=== PATIENT | male | born 1940 | race Caucasian/White ===

== ENCOUNTER → 2017-11-26 09:58 | Outpatient (CLI) | payer MEDICARE, SELFPAY ==
[2017-11-26 12:35] LABS: BUN 22 mg/dL (7-18); Creatinine, Serum 0.95 mg/dL (0.70-1.30); Glucose 137 mg/dL (74-106)
[2017-11-26 12:36] LABS: AST(SGOT) 24 U/L (15-37); Alanine Aminotransfer ALT/SGPT 35 U/L (16-61); Alkaline Phosphatase 55 U/L (45-117); Anion Gap 10 (5-15); BUN/Creat Ratio 23.2 RATIO (10-20); Bilirubin, Direct 0.09 mg/dL (0.00-0.30); Calcium,Total 8.8 mg/dL (8.5-10.1); Chloride 104 mmol/L (98-107); Cholesterol 161 mg/dL (200); EST Glomerular Filtration Rate 82 mL/min (>60); Est Glom Filt Rate - Afr Amer 100 mL/min (>60); Globulin 3.7 g/dL (2.2-4.2); High Density Lipoprotein 30 mg/dL; Potassium 4.1 mmol/L (3.5-5.1); Protein, Total 7.7 g/dL (6.4-8.2); Sodium Level 137 mmol/L (136-145); Triglycerides 254 mg/dL; Very Low Density Lipoprotein 51 mg/dL (5-40)
[2017-11-26 12:43] LABS: Hemoglobin A1c 6.2 % (4.2-6.3)
[2017-11-26 12:49] LABS: Microalbumin,Random Urine 15.5 mg/L (NO RANGE EST.); Microalbumin:Creatinine Ratio 9.1 mg/g CRE (<30 mg/g CRE)
== END ==
PROVIDERS: Family Provider Family Medicine; PCP Family Medicine; Visit Provider Family Medicine
DX: E11.9 Type 2 diabetes mellitus without complications (principal); I10 Essential (primary) hypertension
CPT/HCPCS: 36415; 80048; 80061; 80076; 82043; 82570; 83036

== ENCOUNTER → 2018-11-27 10:18 | Outpatient (CLI) | payer MEDICARE, SELFPAY ==
[2017-11-07 11:41] VITALS: BMI 30.9
[2018-11-27 13:01] LABS: Hemoglobin A1c 6.4 % (4.2-6.3)
[2018-11-27 13:04] LABS: Microalbumin,Random Urine 12.2 mg/L (NO RANGE EST.); Microalbumin:Creatinine Ratio 12.1 mg/g CRE (<30 mg/g CRE)
[2018-11-27 13:14] LABS: AST(SGOT) 24 U/L (15-37); Alanine Aminotransfer ALT/SGPT 32 U/L (16-61); Albumin, Serum 4.1 g/dL (3.2-5.0); Alkaline Phosphatase 46 U/L (45-117); Anion Gap 11 (5-15); BUN 17 mg/dL (7-18); BUN/Creat Ratio 18.7 RATIO (10-20); Bilirubin, Direct 0.17 mg/dL (0.00-0.30); Calcium,Total 8.7 mg/dL (8.5-10.1); Chloride 109 mmol/L (98-107); Cholesterol 153 mg/dL (200); Creatinine, Serum 0.91 mg/dL (0.70-1.30); EST Glomerular Filtration Rate 86 mL/min (>60); Est Glom Filt Rate - Afr Amer 104 mL/min (>60); Globulin 3.4 g/dL (2.2-4.2); Glucose 100 mg/dL (74-106); High Density Lipoprotein 31 mg/dL; Potassium 4.1 mmol/L (3.5-5.1); Protein, Total 7.5 g/dL (6.4-8.2); Sodium Level 142 mmol/L (136-145); Triglycerides 246 mg/dL; Very Low Density Lipoprotein 49 mg/dL (5-40)
== END ==
PROVIDERS: Family Provider Family Medicine; PCP Family Medicine; Visit Provider Family Medicine
DX: E11.9 Type 2 diabetes mellitus without complications (principal)
CPT/HCPCS: 36415; 80048; 80061; 80076; 82043; 82570; 83036

== ENCOUNTER 2019-02-07 14:31 | Emergency (ER) | payer MEDICARE, SELFPAY ==
[2019-02-07 14:32] VITALS: BP 156/83; PULSE 82; RESP 16; TEMP 36.7; O2SAT 95; BMI 30.4
--- NOTE | 2019-02-07 15:06 | CT_ITS ---
STUDY: CT ABDOMEN AND PELVIS WITHOUT CONTRAST REASON FOR EXAM: Male, 78 years old. Left lower quadrant pain RADIATION DOSAGE (If Supplied By Facility): CTDIvol = ( 18.02 ) mGy, DLP = ( 985.79 ) mGycm TECHNIQUE: Transaxial images were obtained from the dome of the diaphragm to the symphysis pubis without oral contrast, and without intravenous contrast. Sagittal and coronal images were reconstructed. Individualized dose optimization techniques were used for this CT. COMPARISON: None. FINDINGS: The visualized lung bases are unremarkable. The visualized portions of the heart are within normal limits. Normal liver. Normal gallbladder and extrahepatic biliary system. Normal spleen. Normal pancreas. Normal bilateral adrenal glands. There is moderate left renal pelvocaliectasis and hydroureter to the level of the bladder without ureteral calculus.. No left renal mass given limited unenhanced nature of the study. Moderate right renal pelvocaliectasis and hydroureter also to the level of the bladder without ureteral calculus. There does appear to be a tiny nonobstructing calculus in the right kidney as well as a large complex cyst demonstrating straightening focal rim calcification. There also appears to be a second complex cyst. Contrast-enhanced study or MRI would be helpful for more definitive evaluation. Normal visualized stomach. Normal small intestine. Minor diverticular changes of the distal descending and sigmoid colon without evidence for acute diverticulitis. No evidence for acute appendicitis Atherosclerotic changes of the aorta without evidence for aneurysm. Normal inferior vena cava. Normal retroperitoneum. The bladder is diffusely distended in association with markedly enlarged prostate impinging upon the base of the bladder. Bilateral fat-containing inguinal hernias larger on the left. The lumbar spine demonstrates moderate spondylosis CT/Abdomen/Pelvis without Cont IMPRESSION: Moderate bilateral hydroureteronephrosis likely due to bladder outlet obstruction in association with markedly distended bladder secondary to enlarged prostate. Tiny nonobstructing right renal calculus and large complex cortical cyst demonstrating focal rim calcification and second complex cyst which may be better assessed with contrast-enhanced study or MRI. Electronically Signed: Lorne Salazar MD at 16:41 EDT , Service support ,
--- NOTE | 2019-02-07 15:07 | ED.VIS.GEN ---
History of Present Illness Chief Complaint: Abd Pain Informant: Patient Onset: Today Timing: Intermittent - over past week, mild Quality: ache Location: LLQ Current Severity: Mild Maximum Severity: Severe Worsened by: nothing Relieved by: just after urinating Associated Symptoms: nausea this AM Narrative: Patient sent by PCP after being evaluated this morning, for CT abdomen/pelvis for further evaluation of this relatively quick onset severe left lower quadrant pain without radiation. He states he has been having discomfort just left of suprapubic off and on for the past week but it has been very mild. Today this pain is much more severe. He has noticed urinary frequency and nocturia for the past week without hematuria, dysuria. He has never had any of this before. Denies any syncopal or near syncopal episodes, no chest discomfort or shortness of breath. No radiation into his back or his scrotum. No numbness in the lower extremities. - Past Medical History (1) HTN (hypertension) Status: Chronic (2) Type 2 diabetes mellitus Status: Chronic Past Medical History - Allergies and Home Meds Allergies/Adverse Reactions: Allergies pneumococcal vaccine [From Pneumovax 23] Allergy (Verified 02/07/19 14:35) SWELLING AND REDNESS Primary Care Physician: Indira Tidwell MD [Primary Care Provider] - Lives: Spouse/ Significant Other Smoking Status: Former smoker Drugs: None Review of Systems General: Denies: Chills, Fever, Sweats Eyes: Denies: Visual changes - bilaterally, Diplopia ENT: Denies: Rhinorrhea, Sore throat Cardiovascular: Denies: Chest pain, Palpitations Respiratory: Denies: Dyspnea, Cough, Dyspnea on exertion Gastrointestinal: Reports: Abdominal pain, Nausea. Denies: Vomiting, Diarrhea, Melena, Hematochezia Genitourinary: Reports: Frequency, - - urgency. Denies: Dysuria, Hematuria Musculoskeletal: Reports: Myalgias - achy from working, cutting and lifting wood -- better, Back pain - achy from working, cutting and lifting wood -- better. Denies: Neck pain, Swelling Skin: Denies: Rash, Wounds Neurological: Denies: Headache, Weakness, Numbness Allergy: Denies: Swelling of the mouth, Swelling of the tongue Physical Exam Vital Signs/Narrative: Vital Signs Temp Pulse Resp BP Pulse Ox 02/07/19 14:32 98.0 F 82 16 156/83 H 95 Inital Vital Signs reviewed: Yes General: Well nourished, Well developed, No Acute Distress Head: Normocephalic, Atraumatic Eyes: Perrl, EOMI ENT: Moist mucous membranes, No rhinorrhea Neck: Supple, Nontender Cardiovascular: Regular rate, Regular rhythm, No murmurs. Negative for: Tachycardia Respiratory: No distress, CTA bilaterally, Chest nontender Abdomen: Soft, Nontender, Nondistended, Normal bowel sounds. Negative for: Pulsatile mass Back: Nontender, Normal Inspection - no rash. Negative for: CVA tenderness Extremities: Nontender, No edema Skin: Normal color, No rash, No Trauma Neurological: Alert, Oriented x3, Cranial nerves II-XII grossly intact, Normal Strength, Normal Sensation Psychological: Normal affect, Normal Mood Diagnostic/Tx/Re-eval Impressions Abdomen/Pelvis CT 02/07/19 15:06 IMPRESSION: Moderate bilateral hydroureteronephrosis likely due to bladder outlet obstruction in association with markedly distended bladder secondary to enlarged prostate. Tiny nonobstructing right renal calculus and large complex cortical cyst demonstrating focal rim calcification and second complex cyst which may be better assessed with contrast-enhanced study or MRI. Electronically Signed: Lorne Salazar MD at 16:41 EDT , Service support , 02/07/19 15:06 Abdomen/Pelvis without Cont [CT] Stat Laboratory Results 02/07/19 02/07/19 15:13 15:13 WBC 4.8 RBC 3.60 L Hgb 10.8 L Hct 33.5 L MCV 93.1 MCH 30.0 MCHC 32.2 RDW 13.3 RDW Differential 45.5 H Plt Count 179 MPV 9.6 Immature Gran % (Auto) 0.200 Neut % (Auto) 78.0 H Lymph % (Auto) 16.2 L [place] % (Auto) 5.4 Eos % (Auto) 0.2 Baso % (Auto) 0.0 Absolute Neuts (auto) 3.8 Absolute Lymphs (auto) 0.78 L Total Counted Not Reportable Sodium 143 Potassium 4.3 Chloride 111 H Carbon Dioxide 24.0 Anion Gap 8 BUN 32 H Creatinine 1.65 H Estim Creat Clear Calc 41.80 Est GFR (MDRD) Af Amer 52 L Est GFR (MDRD) Non-Af 43 L BUN/Creatinine Ratio 19.4 Glucose 120 H Calcium 8.7 - Medical Decision Making Saucedo catheter was placed, which yielded almost 2000 cc, his trunkal pain is much better. He developed hematuria after a liter was out. With observation this cleared, it is now pink without clots. I think he is stable to be discharged home with a leg bag. Discussed with PCP and Dr. germain who recommends follow-up 7-10 days along with daily Flomax 0.4 mg tablets. Patient is comfortable with this plan. All questions answered at the bedside. ED Disposition - Plan for ED Patient: Disposition: Home or Assisted Living Diagnosis: JUDY (acute kidney injury), Enlarged prostate with urinary retention Instructions: ED Retention Urinary Male, ED Catheter Care Saucedo, ED Prostate Enlarged Prescriptions: Tamsulosin HCl [Flomax] 0.4 mg PO DAILY #30 cap Referrals: Richard Fields MD [STAFF PHYSICIAN] - (7-10 days -- call for appt)
[2019-02-07 15:20] LABS: Absolute Lymphocyte Count 0.78 X10^3/ul (0.83-4.51); Absolute Neutrophil Count 3.8 X10^3/uL (2.0-7.7); Eosinophil# 0.01 X10^3/uL; Eosinophils% 0.2 % (0-5); Hematocrit 33.5 % (40-54); Hemoglobin 10.8 g/dl (13.0-16.5); Lymphocyte # 0.78 X10^3/ul (4.0); Lymphocyte % 16.2 % (19-41); Mean Corp Hgb Conc 32.2 g/gl (32-36); Mean Corpuscular Volume 93.1 fL (80-94); Mean Platelet Vol. 9.6 fl (6.2-12.0); Monocyte# 0.26 X10^3/uL; Monocyte% 5.4 % (0-10); Neutrophil # 3.75 X10^3/uL (2.7-7.7); Platelet Count 179 K/mm3 (150-450); RBC Distribution Width CV 13.3 % (11.6-14.6); RBC Distribution Width SD 45.5 fl (35.1-43.9); White Blood Count 4.8 K/mm3 (4.4-11.0)
[2019-02-07 15:24] LABS: POSITIVE COUNT NO; POSITIVE DIFFERENTIAL NO; POSITIVE MORPHOLOGY NO
[2019-02-07 15:34] LABS: Anion Gap 8 (5-15); BUN 32 mg/dL (7-18); BUN/Creat Ratio 19.4 RATIO (10-20); Calcium,Total 8.7 mg/dL (8.5-10.1); Chloride 111 mmol/L (98-107); Creatinine, Serum 1.65 mg/dL (0.70-1.30); EST Glomerular Filtration Rate 43 mL/min (>60); Est Glom Filt Rate - Afr Amer 52 mL/min (>60); Glucose 120 mg/dL (74-106); Potassium 4.3 mmol/L (3.5-5.1); Sodium Level 143 mmol/L (136-145)
[2019-02-07 17:36] VITALS: BP 156/79; PULSE 87; RESP 16; O2SAT 99
[2019-02-07] MEDS: Lidocaine Jelly 2% 20 ML Syringe (URO-JET) 20 APPLIC TOPICAL (17:37)
[2019-02-07 19:12] VITALS: BP 158/87; PULSE 78; RESP 16; O2SAT 100
== END 2019-02-07 19:12 | disposition home or self-care (01) ==
PROVIDERS: Emergency Provider Emergency Medicine; Family Provider Family Medicine; PCP Family Medicine
DX: N17.9 Acute kidney failure, unspecified (principal); N40.1 Benign prostatic hyperplasia with lower urinary tract symptoms; R33.8 Other retention of urine; N13.8 Other obstructive and reflux uropathy; Z87.891 Personal history of nicotine dependence; I10 Essential (primary) hypertension; E11.9 Type 2 diabetes mellitus without complications
CPT/HCPCS: 51702; 74176; 80048; 85025; 99284; A4216

== ENCOUNTER → 2019-02-17 10:16 | Outpatient (CLI) | payer MEDICARE, SELFPAY ==
[2019-02-14 10:17] VITALS: BMI 29.3
--- NOTE | 2019-02-17 10:33 | CT_ITS ---
STUDY: CT ABDOMEN WITH CONTRAST REASON FOR EXAM: Male, 78 years old. Follow-up abnormal CT 02/07. Possible right renal mass RADIATION DOSAGE (If Supplied By Facility): CTDIvol = ( 22.67 ) mGy, DLP = ( 1196.94 ) mGycm TECHNIQUE: Transaxial images were obtained post I.V. administration of 75mL IV Isovue 300, and without oral contrast. Sagittal and coronal images were reconstructed. Individualized dose optimization techniques were used for this CT. COMPARISON: 02/07/2019 FINDINGS: The visualized lung bases are unremarkable. The visualized portions of the heart are within normal limits. Normal liver. The gallbladder is contracted. Normal spleen. Normal pancreas. Normal bilateral adrenal glands. Markedly irregular appearance of the right kidney with enhancing lobulated mass with some internal calcifications. The actual masses are to identify given its appearance however, gross measurements measuring 7.4 cm AP by 4.7 cm wide. On precontrast imaging, this measured 24 HU with postcontrast imaging measuring 50. There is a hypodense exophytic mid pole renal cystic lesion as well measuring 4.6 x 3.1 cm. Unremarkable left kidney absent of small subcentimeter hypodensities, likely small cysts. Somewhat ill-defined appearance of the right renal vein suggesting possible involvement Unremarkable stomach and visualized small and large bowel. No evidence of significant lymphadenopathy around the right kidney. Normal abdominal aorta. Normal inferior vena cava. Normal retroperitoneum. Normal abdominal wall. Normal osseous structures. CT/Abdomen WITH IV Contrast IMPRESSION: Multilobulated enhancing mass involving the right kidney which is highly suspicious for renal cell carcinoma. Additional cystic lesion involving the right kidney. Questionable involvement of the right renal vein with abnormality. Surgical consultation is recommended if not already performed Electronically Signed: All Holt DO at 11:19 EDT Tel , Service support ,
== END ==
PROVIDERS: Family Provider Family Medicine; PCP Family Medicine; Referring Provider Nurse Practitioner Adult Health; Visit Provider Nurse Practitioner Adult Health
DX: R10.84 Generalized abdominal pain (principal)
CPT/HCPCS: 74160; Q9967

== ENCOUNTER 2019-02-21 16:22 | Inpatient (IN) | payer MEDICARE, SELFPAY ==
[2019-02-14 10:17] VITALS: BP 138/67; PULSE 81; RESP 16; TEMP 36.3; O2SAT 99; BMI 29.3
--- NOTE | 2019-02-14 10:25 | SDCEKG_ITS ---
Test Reason : Blood Pressure : / mmHG Vent. Rate : 077 BPM Atrial Rate : 077 BPM P-R Int : 150 ms QRS Dur : 092 ms QT Int : 366 ms P-R-T Axes : 054 025 052 degrees QTc Int : 414 ms Normal sinus rhythm Normal ECG Confirmed by ASHLEY ROACH, NAKIA ([id number]), managing editor RAÚL ESCOBAR ([id number]) on 02/25/2019 9:15:19 AM Referred By: Richard Fields Confirmed By:NAKIA RAMIREZ MD
[2019-02-21] VITALS (12 sets, daily range): BP systolic 93–120; BP diastolic 51–71; PULSE 53–92; RESP 14–18; TEMP 36.1–36.9; O2SAT 95–99; BMI 29.3; BMI 29.2
--- NOTE | 2019-02-21 | IMM_PTH ---
PATIENT: YUKI HERNANDEZ LOC: MS3 U#:[id number] AGE/SX: 78/M ROOM: UT316 RE02/21/[address]: Dr. Richard Fields MD : 1940 BED: 1 DIS: 02/24/2019 SPEC #: [id number] RECD: 02/25/19 11:12 STATUS: LEXIS REQ #: [id number] ZARA: 02/21/19 00:[address]: Richard Fields DEPT: IMMUNOHISTOCHEMISTRY RECD BY: Shikha Roper ENTERED: 02/25/19 11:13 SP TYPE: IMMUNO OTHR DR: Dr. Indira Tidwell MD Tissues: Prostate, NOS Procedures: P40 (add) 34BE12 (initial) PHYSICIAN & INSTITUTION [place] [address] SPECIMEN INFORMATION: Tissue Source: Prostate Clinical Info: Urine retention, BPH, lower urinary tract symptoms Specimen Number: [id number] #7 CPT code: 58525, 96568 METHODOLOGY: Deparaffinized sections of prefer/formalin-fixed tissue or PAP/DQ stained slides are incubated with monoclonal/polyclonal antibodies/oligonucleotide probes. Localization is made via biotin free immunoperoxidase method. Appropriate controls are performed and reacted as expected. Results on target cell population are indicated in the following table: RESULTS: ANTIBODY / CLONE RESULT P40 (BC28) negative 34BE12 (34BE12) negative These tests were developed and their performance characteristics determined by [facility]. They may not have been cleared or approved by the U.S. Food and Drug Administration. The FDA has determined that such clearance or approval is not necessary. INTERPRETATION: Prostate, simple prostatectomy: Adenocarcinoma. CAPRI:faustino 02/25/19
[2019-02-21 12:01] LABS: Bedside Glucose 124 mg/dL (70-110)
--- NOTE | 2019-02-21 13:00 | PROST_PTH ---
PATIENT: YUKI HERNANDEZ LOC: MS3 U#:[id number] AGE/SX: 78/M ROOM: SD316 RE02/21/[address]: Dr. Richard Fields MD : 1940 BED: 1 DIS: 02/24/2019 SPEC #: [id number] RECD: 02/24/19 09:18 STATUS: LEXIS REFilomena #: [id number] ZARA: 02/21/19 13:[address]: Richard Fields DEPT: SURGICAL PATHOLOGY RECD BY: Rhys Leonard ENTERED: 02/24/19 10:01 SP TYPE: PROSTATE OTHR DR: Dr. 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 See cancer summary below. SJ:faustino 02/25/19 PROSTATE CANCER SUMMARY: Procedure - enucleation, multiple pieces (simple prostatectomy) Prostate size - 10 x 9 x 4 cm Prostate weight - 84 gm Histologic type - adenocarcinoma (acinar, not otherwise specified) Histologic grade (Eddie Pattern): Primary (predominant) pattern - 3 Secondary (worst remaining) pattern - 3 Total [place] score - 6 Tumor Quantitation (enucleation specimen): Proportion (%) of prostate tissue involved by tumor - <5% Tumor size - 0.5 x 0.2 cm (measured microscopically) Periprostatic fat invasion - not applicable Seminal vesicle invasion - not applicable Lymph-Vascular invasion - not identified Perineural invasion - not identified Additional pathologic findings - benign prostatic hyperplasia, glandular and stromal type. - Chronic inflammation. The above summary is in compliance with [employer] [place] (CAP) Cancer Protocols Checklist and [place] Joint Committee on Cancer (AJCC), Staging Manual, 8th Ed. COMMENT Immunohistochemistry ([id number]) supports the above diagnosis. Case has been reviewed in consultation with Dr. Tillman who concurs with the above diagnosis. IDC:AM MICROSCOPIC DESCRIPTION Slides are reviewed. GROSS DESCRIPTION Received in fixative is one container labeled with the patient's name and designated prostate. The specimen consists of a simple prostatectomy specimen in multiple pieces weighing in aggregate 84 gm and measures in aggregate 10 x 9 x 4 cm. The largest piece measures 5 cm in greatest dimension. Sections do not reveal any obvious mass lesion. [employer]acker sections are submitted in ten cassettes. Cassettes 1-4 contain the largest piece. / CAPRI:faustino 02/24/19 TC:0 CPT: 25592
--- NOTE | 2019-02-21 16:05 | PCM.HP.BLA ---
History and Physical Date of Admission: 02/21/19 I have urinary retention. HPI: YUKI HERNANDEZ is a 78 year-old male patient who was referred by LA[facility] MEJIA M.D. who is here for urinary retention. 78 yo male presents with urinary retention, referred from ER. He states he is here for the severe RLQ pain, it was dull before but sharp last night. He had similar pain left side last week. CT showed bilateral hydroureteronephrosis A couple days before he presented to Dr Baeza for left sided pain he had nocturia with small voids. Usually up max once a night. His problem was diagnosed 3 days ago. His current symptoms did not begin after he had a surgical procedure. His urinary retention is being treated with campbell catheter and flomax. Patient denies suprapubic tube, intemittent catheterization, hytrin, cardura, uroxatrol, rapaflo, avodart, and proscar. ALLERGIES: None Notes: allergic reaction to pneumovax booster. - extremity swelling MEDICATIONS: Amlodipine Besilate Glimepiride Lisinopril Metformin Er Gastric Tamsulosin Hcl 0.4 mg capsule PSH: None NON- PSH: Colonoscopy Pneumococcal Vaccine Admin Tonsillectomy PMH: Frequency of micturition Generalized abdominal pain Other retention of urine NON- PMH: Essential (primary) hypertension Type 2 diabetes mellitus without complications Unspecified hearing loss, unspecified ear Unspecified osteoarthritis, unspecified site FAMILY HISTORY: Colon Cancer - Runs in Family SOCIAL HISTORY: Marital Status: Preferred Language: Yoruba; Ethnicity: Not Or ; Race: White Current Smoking Status: Patient does not smoke anymore. Has not smoked since 01/14/1984. Tobacco Use Assessment Completed: Used Tobacco in last 30 days? Does not use smokeless tobacco. Light Drinker. Does not use drugs. Drinks 4+ caffeinated drinks per day. Has not had a blood transfusion. REVIEW OF SYSTEMS: Constitutional: Patient denies fever, chills, weight loss, and weight gain. Eyes: Patient denies blurry vision, cataracts, and vision problems. Ears, Nose, Mouth, Throat: Patient denies hearing loss, sinus infections, nasal stuffiness, and sleep apnea. Cardiovascular: Patient denies chest pains, swollen ankles, irregular heartbeat, and pacemaker/defibrillator. Respiratory: Patient denies cpap at night., copd, wheezing, use oxygen, and shortness of breath. Gastrointestinal: R side flank pain. Patient reports abdominal pain. Patient denies nausea/vomiting and change in bowels. Genitourinary: Patient reports get up at night to void. Patient denies frequent urination, urinary retention, leakage of urine, blood in urine, frequent urinary tract infections, history of stones, difficulty starting stream, weak stream, and bedwetting. Musculoskeletal: Patient reports back pain. Patient denies sore muscles, gout, and arthritis. Integumentary/Skin: Patient denies rash, persistent itching, and skin cancer history. Neurological: Patient denies numbness, dizziness, stroke/tia, and history of falling/unsteadiness.. Hematologic/Lymphatic: Patient denies swollen glands, abnormal bleeding, transfusion history, and blood clots/dvt/pulmonary embolism. VITAL SIGNS: 02/10/2019 10:32 AM Weight 220 lb / 99.79 kg Height 72 in / 182.88 cm BP 142/78 mmHg BMI 29.8 kg/m? PHYSICAL EXAMINATION: Anus and Perineum: No hemorrhoids. No anal stenosis. No rectal fissure, no anal fissure. No edema, no dimple, no perineal tenderness, no anal tenderness. Scrotum: No lesions. No edema. No cysts. No warts. Epididymides: Right: right head contains a cyst. Right: No spermatocele, no masses, no tenderness, no induration, no enlargement. Left: No spermatocele, no masses, no cysts, no tenderness, no induration, no enlargement. Testes: No tenderness, no swelling, no enlargement left testes. No tenderness, no swelling, no enlargement right testes. Normal location left testes. Normal location right testes. No mass, no cyst, no varicocele, no hydrocele left testes. No mass, no cyst, no varicocele, no hydrocele right testes. Urethral Meatus: Normal size. No lesion, no wart, no discharge, no polyp. Normal location. Penis: Penis uncircumcised. No foreskin warts, no cracks. No dorsal peyronie's plaques, no left corporal peyronie's plaques, no right corporal peyronie's plaques, no scarring, no shaft warts. No balanitis, no meatal stenosis. Prostate: very large, no nodules. Seminal Vesicles: Nonpalpable. Sphincter Tone: Normal sphincter. No rectal tenderness. No rectal mass. MULTI-SYSTEM PHYSICAL EXAMINATION: Constitutional: Well-nourished. No physical deformities. Normally developed. Good grooming. Respiratory: No labored breathing, no use of accessory muscles. Normal breath sounds. Lymphatic: No enlargement of neck, axillae, groin. Skin: No paleness, no jaundice, no cyanosis. No lesion, no ulcer, no rash. Neurologic / Psychiatric: Oriented to time, oriented to place, oriented to person. No depression, no anxiety, no agitation. Gastrointestinal: Abdominal tenderness, mild generalized. No mass, no rigidity, non obese abdomen. Eyes: Normal conjunctivae. Normal eyelids. Musculoskeletal: Normal gait PAST DATA REVIEWED: Source Of History: Patient Records Review: Previous Hospital Records X-Ray Review: C.T. Abdomen/Pelvis: Reviewed Films. Reviewed Report. Discussed With Patient. 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 CT also shows abnormality of right kidney, needs CT with contrast to eval this mass. Dr Fields plans TURP for the very large prostate. Rx for night bag for campbell so he doesn't have to empty it in the night. CARE TEAM: CARINA Martínez-CORWIN Guzman Signed by SABRINA Martínez on 02/10/19 at 3:11 PM (EDT) APPENDED NOTES: In reviewing the CT scan he has a 144gm prostate very large, best option would be a simple prostatectomy will set him up for a robotic simple prostatectomy.
[2019-02-21] MEDS: Cefazolin 2 GM in 0.9% Normal Saline 100 ML IV (16:20)
[2019-02-21] MEDS: Bupivacaine Mpf 0.5% 30 ML VIAL (16:41)
--- NOTE | 2019-02-21 19:29 | OP.PCM_ITS ---
Report of Operation Date of Procedure: 02/21/19 Pre-Operative Diagnosis: BPH with obstruction and urinary retention Post-Operative Diagnosis: Same Surgery/Procedure Performed:: Laparoscopic robotic assisted prostatectomy Description of Surgical Findings:: 78-year-old male who has a very large prostate about 140 g in size he developed a urinary retention of the very large stretch out thickened bladder today working to proceed with a prostatectomy to remove the adenomatous prostate that is blocking the channel. 78-year-old male taken back to the operating room after smooth induction of anesthesia he was placed in dorsolithotomy position the penis and testicles and abdomen was shaved prepped and draped in usual sterile fashion I made an incision in the umbilicus and introduced the Veress needle into the peritoneal cavity filled the peritoneal cavity with CO2 gas placed my camera trocar right arm trocar left arm trocar second left arm trocar geriatric nurse assistant air seal port and suction port. I then docked the robot I first incised the sigmoid colon off the lateral wall allowed to retract out of the way I then we placed the catheter into the bladder I then filled the bladder up to 400 cc of saline, we then incised the bladder in the midline opening up the bladder up in the clamshell fashion, I then used a Hernandez needle to retract the bladder laterally in the right side and the left side, we then went into the bladder identified the left and right ureteral orifices were clearly seen, we then have the catheter and pharmacy deflated the balloon circumferentially dissected around the catheter and dissected down to the adenomatous tissue we then started the dissection of the adenomatous tissue to the right side to the capsule and following the surgical capsule all the way around the prostate worked our way down to the base of the abdomen is tissue I then fractured the abdominal tissue to get it out of the way and then continued dissecting out the adenomatous tissue from the base of the of the prostate finally got all the tissue out resected and then placed in Endo Catch bag after completing the prostatectomy of the adenomatous tissue then we did the anastomosis of the [place] down to the stump this was done with a V lock stitches in a continuous fashion bringing down the edges of the bladder neck to the urethral stump after this was completed then we put a 20 [place] catheter into the bladder I then closed the bladder in a running fashion from the bottom up with 3-0 Vicryl and closed the second layer with 0 Vicryl we then extracted the adenomatous prostatic prostatectomy tissue to the umbilicus to close the umbilicus with with a stitches to close the air seal port with stitches all the trochars were removed under visualization we flush the bladder the bladder urine was clear patient anesthetic is currently being removed reversed blood loss was minimal about 200 cc, all sponges and needles were accounted for, and I went spoke to the family regarding the surgery. Type of Anesthesia:: General Drains: 20 fr campbell. - Admit VTE Documentation VTE Present on Admission: No VTE Mechan Device Prophylaxis: SCD's
[2019-02-21] MEDS: Ketorolac 15 MG/ML Vial IV (19:56)
[2019-02-21 21:26] LABS: Bedside Glucose 146 mg/dL (70-110)
[2019-02-21] MEDS: 0.9% Normal Saline 1,000 ML 150 ML IV (22:10)
[2019-02-21] MEDS: Ciprofloxacin 400 MG/200 ML BAG 200 MG IV (22:45)
[2019-02-21] MEDS: amLODIPine 5 MG Tablet PO (22:51)
[2019-02-21] MEDS: Docusate Sodium 100 MG Capsule PO (22:51)
[2019-02-22] VITALS (8 sets, daily range): BP systolic 96–123; BP diastolic 44–60; PULSE 72–93; RESP 16–18; TEMP 36.8–37.1; O2SAT 92–96
[2019-02-22] MEDS: 0.9% NaCl Peripheral Flush Adult/Peds IV ×4 (00:46→18:21)
[2019-02-22] MEDS: Ketorolac 15 MG/ML Vial IV ×4 (00:46→18:21)
[2019-02-22] MEDS: 0.9% Normal Saline 1,000 ML 150 ML IV ×3 (05:29→18:27)
[2019-02-22 06:35] LABS: Hematocrit 29.3 % (40-54); Hemoglobin 9.5 g/dl (13.0-16.5); Mean Corp Hgb Conc 32.4 g/gl (32-36); Mean Corpuscular Hgb 30.2 pg (27.0-32.0); Mean Platelet Vol. 9.7 fl (6.2-12.0); Platelet Count 129 K/mm3 (150-450); RBC Distribution Width CV 14.1 % (11.6-14.6); RBC Distribution Width SD 47.5 fl (35.1-43.9); Red Blood Count 3.15 M/mm3 (4.6-6.2); Scan Indicated on CBC? Y/N YES- FLAGS NOTED; White Blood Count 11.4 K/mm3 (4.4-11.0)
[2019-02-22 06:59] LABS: Anion Gap 6 (5-15); BUN 15 mg/dL (7-18); BUN/Creat Ratio 15.1 RATIO (10-20); Calcium,Total 7.7 mg/dL (8.5-10.1); Chloride 107 mmol/L (98-107); Creatinine, Serum 0.99 mg/dL (0.70-1.30); EST Glomerular Filtration Rate 78 mL/min (>60); Est Glom Filt Rate - Afr Amer 94 mL/min (>60); Estimated Creatinine Clearance 69.67 ml/min; Glucose 112 mg/dL (74-106); Potassium 4.3 mmol/L (3.5-5.1); Sodium Level 141 mmol/L (136-145)
[2019-02-22 07:06] LABS: Differential Comment SCANNED
--- NOTE | 2019-02-22 08:08 | NURSING ---
Pt lightheaded last evening when stood at edge of bed per report and pt report. This nurse performed orthostatic vitals, see intervention. Pt denies lightheadedness this morning when he was sitting and standing up.
--- NOTE | 2019-02-22 08:43 | PCM.PROGNOTE ---
Subjective: 78-year-old male status post prostatectomy for BPH and obstruction doing well no more bladder spasms currently. Urine is clearing up with less blood. He can ambulate and tolerate regular diet - Physical Exam General: Alert, Oriented x3, Cooperative HEENT: Atraumatic, PERRLA, EOMI, Normocephalic Neck: Supple, No JVD, Negative Carotid Bruits Lungs: Clear to auscultation, Normal air movement Cardiovascular: Regular rate, No murmurs Abdomen: Bowel Sounds Present, Soft, Non Tender Extremities: No edema, Capillary Refill Less than 3 Seconds Skin: No rashes, No breakdown Musculoskeletal: No Tenderness to Palpation of Joints or Extremities Neurological: Cranial nerves II-XII grossly intact Psych/Mental Status: Normal Affect, Appropriate Vital Signs Temp Pulse Resp BP Pulse Ox 98.4 F 87 18 96/52 L 95 02/22/19 07:51 02/22/19 07:52 02/22/19 07:51 02/22/19 07:52 02/22/19 07:51 Oxygen Flow Rate (L/min) 1.5 Oxygen Delivery Method Room Air Weight: 97.749 kg Body Mass Index (BMI) 29.2 Finger Stick Blood Glucose 146 Orthostatic Vital Signs Start: 02/22/19 07:52 Freq: q24h Status: Active Protocol: Activity Type Activity Date Activity User E-Sign Co-Sign Detail Recorded Client Recorded Date Recorded By Document 02/22/19 07:52 [id number] 02/22/19 08:00 TC 02/22/19 07:52 Orthostatic Vitals Standing -Blood Pressure (90/60-120/80) 115/60 -Extremity Use Right Arm -Pulse Rate (60-100) 93 Sitting -Blood Pressure (90/60-120/80) 113/57 L -Extremity Use Right Arm -Pulse Rate (60-100) 84 Lying -Blood Pressure (90/60-120/80) 96/52 L -Extremity Use Right Arm -Pulse Rate (60-100) 87 Intake and Output for Last 24 Hours 02/20/19 02/21/19 02/22/19 23:59 23:59 23:59 Intake Total 2700 / 2700 1698 / 1698 Output Total 90 / 90 750 / 750 Balance 2610 / 2610 948 / 948 Laboratory Tests Past 24 Hrs 02/22/19 02/22/19 06:16 06:16 WBC 11.4 H RBC 3.15 L Hgb 9.5 L Hct 29.3 L MCV 93.0 MCH 30.2 MCHC 32.4 RDW 14.1 RDW Differential 47.5 H Plt Count 129 L MPV 9.7 Differential Comment SCANNED Sodium 141 Potassium 4.3 Chloride 107 Carbon Dioxide 28.0 Anion Gap 6 BUN 15 Creatinine 0.99 Estim Creat Clear Calc 69.67 Est GFR (MDRD) Af Amer 94 Est GFR (MDRD) Non-Af 78 BUN/Creatinine Ratio 15.1 Glucose 112 H Calcium 7.7 L POC Glucose 02/21/19 02/21/19 19:55 11:18 POC Glucose 146 H 124 H Medical Necessity - Tobacco Use Smoking Status: Former smoker Tobacco Use: Non-smoker Assessment/Plan 78-year-old status post surgery doing well advance to regular diet as tolerated, continue IV fluids, need to ambulate, cannot use subcu heparin or Lovenox given his prostate surgery so he is at risk for blood clots especially with a renal mass that is concerning for malignancy spoke to the family regarding the situation he has a infiltrating mass in his right kidney he is scheduled to get an MRI to evaluate for renal vein thrombus.
--- NOTE | 2019-02-22 09:53 | CM.UR ---
RN CM BOILER REPAIR SUPERVISOR CM to room to meet with patient for initial transition planning/care coordination assessment. RN WARD introduced self and role at [facility]. Pt voices understanding and consents to assessment at this time. Pt resting in bed in no distress at this time. Multiple family members present but they stepped out of room for assessment. Pt is A/O at this time and answers all questions appropriately. Care providers, pharmacy, and demographics verified at this time. PCP: [facility] Specialists: [facility]. Preferred Pharmacy: [facility] Insurance: [employer] [facility] Prescription Benefit: [employer] Living Will/HPOA: None. Verbalizes he and have discussed. Accepted booklet regarding them. Explained can be done during hospital stay or he can make appt with SW in future to complete. Verb understanding. LNOK: Living Arrangements: Split level. ADLs: Independent with all ADLs normally. Doing a little less around house since campbell placed. Transportation: Pt states drives self and states no transportation concerns at this time. DME: Denies using any DME and denies needs. has cane and crutches. HHC/SNF: No history of either. Denies needs for HHC. No needs identified. Pt wishes to return home and states has no concerns with going home at time of discharge. CM to follow for any discharge planning/needs. Pt voices no further concerns/needs at this time. Advised pt to ask for CM if any further questions/concerns/needs arise. Voices understanding. PLAN: Home with spousal support and discharge plans in place. Giorgio Hoover RN, [facility].
[2019-02-22] MEDS: Docusate Sodium 100 MG Capsule PO ×2 (10:13→21:23)
[2019-02-22] MEDS: Ciprofloxacin 400 MG/200 ML BAG 200 MG IV (10:13)
[2019-02-22] MEDS: Pantoprazole Sodium 20 MG Tablet PO (10:14)
[2019-02-22] MEDS: Glimepiride 2 MG Tablet PO (10:14)
[2019-02-22] MEDS: Lisinopril 20 MG Tablet PO (10:17)
[2019-02-22] MEDS: Magnesium Hydroxide 30 ML UDC 15 ML PO (10:23)
--- NOTE | 2019-02-22 11:24 | NURSING ---
At 10:30 this morning, Irrigated Saucedo 2nd time today per orders. Then walked in room and then to chair. Sitting in chair at this time.
--- NOTE | 2019-02-22 14:38 | NURSING ---
Pt walking in scherer with family at this time.
--- NOTE | 2019-02-22 16:36 | NURSING ---
Up to chair at this time. Walked one time today. Is aware that this nurse wants him to walk in halls after dinner and then again at bedtime.
--- NOTE | 2019-02-22 16:39 | NURSING ---
This nurse irrigated campbell with 40cc of Normal Saline. Return of 400cc of clear, yellow drainage with no clots. Dr. Fields called, made aware and asked if wanted campbell flushed Q2hrs still. New orders to only flush/irrigate prn.
--- NOTE | 2019-02-22 18:48 | NURSING ---
Walked in the scherer for the 3rd time today. Back in bed.
[2019-02-22] MEDS: amLODIPine 5 MG Tablet PO (21:23)
[2019-02-23] MEDS: Ketorolac 15 MG/ML Vial IV ×4 (00:07→17:55)
[2019-02-23] MEDS: 0.9% Normal Saline 1,000 ML 150 ML IV ×2 (00:56→08:21)
[2019-02-23 02:00] VITALS: BP 132/63; PULSE 83; RESP 14; TEMP 36.8; O2SAT 94
[2019-02-23 07:11] VITALS: O2SAT 94
[2019-02-23 08:00] VITALS: BP 151/68; PULSE 86; RESP 16; TEMP 37; O2SAT 97
[2019-02-23] MEDS: Glimepiride 2 MG Tablet PO (08:21)
[2019-02-23] MEDS: Docusate Sodium 100 MG Capsule PO ×2 (10:45→21:22)
[2019-02-23] MEDS: Lisinopril 20 MG Tablet PO (10:45)
[2019-02-23] MEDS: Pantoprazole Sodium 20 MG Tablet PO (10:45)
[2019-02-23 14:47] VITALS: BP 138/68; PULSE 84; RESP 18; TEMP 36.7; O2SAT 98
[2019-02-23] MEDS: 0.9% NaCl Peripheral Flush Adult/Peds IV (17:55)
[2019-02-23 20:45] VITALS: BP 131/73; PULSE 71; RESP 16; TEMP 36.5; O2SAT 99
[2019-02-23] MEDS: amLODIPine 5 MG Tablet PO (21:22)
[2019-02-24] MEDS: 0.9% NaCl Peripheral Flush Adult/Peds IV ×2 (00:05→06:10)
[2019-02-24 03:15] VITALS: BP 150/74; PULSE 82; RESP 16; TEMP 36.9; O2SAT 96
[2019-02-24] MEDS: Ketorolac 15 MG/ML Vial IV ×2 (06:09)
[2019-02-24 07:29] VITALS: O2SAT 97
--- NOTE | 2019-02-24 07:44 | PCM.DC.URO ---
Discharge Diet: Light diet - advance as tolerated Discharge Activity: May Not Drive, May not drive while taking narcotic pain medications., May Shower May shower in (days): 1 Call your doctor if your incision/area has: Continuous Slow Oozing, Sudden Increased Bleeding, Increased Pain/ Swelling, Increased Redness, Foul Smelling Discharge, Swelling at the incision site Call your doctor if you observe: Fever of 101 or Higher, Inability to have a bowel movement, Uncontrolled pain Suture Line Care: Avoid Pulling/Pushing, Avoid Pinching/Bending Cleanse incision/area with: Soap & Water Catheter: Sau[place] to leg bag, [place]o to large bag Drain: [place] Allergies/Adverse Reactions: Allergies pneumococcal vaccine [From Pneumovax 23] Allergy (Verified 02/14/19 10:01) SWELLING AND REDNESS Medications to take at Discharge Amlodipine [Norvasc] 5 mg PO QHS 05/30/17 Glimepiride [Amaryl] 2 mg PO DAILY 05/30/17 Lisinopril [Zestril] 20 mg PO DAILY 05/30/17 Metformin HCl [Glucophage] 1,000 mg PO QHS 05/30/17 Tamsulosin HCl [Flomax] 0.4 mg PO QHS 02/14/19 Acetaminophen [Tylenol Extra Strength] 500 mg PO Q4H PRN PRN #20 tablet 02/24/19 Ciprofloxacin [Cipro] 500 mg PO BID #20 tablet 02/24/19 Ibuprofen 600 mg PO Q6H PRN PRN #20 tablet 02/24/19 The following prescriptions were given: Acetaminophen [Tylenol Extra Strength] 500 mg PO Q4H PRN PRN #20 tablet PRN Reason: Pain Ibuprofen 600 mg PO Q6H PRN PRN #20 tablet PRN Reason: Pain Ciprofloxacin [Cipro] 500 mg PO BID #20 tablet Primary Care Physician: Indira Tidwell MD [Primary Care Provider] - Test Results: Test results from this visit will be discussed in further detail at your follow-up appointment, if applicable. Please Follow Up With: Richard Fields MD When: please call to make an appointment.
--- NOTE | 2019-02-24 07:45 | PCM.DC.SUM ---
Discharge Date and Diagnosis Date of Admission: 02/21/19 Date of Discharge: 02/24/19 - Secondary Discharge Diagnosis Chronic Problems (Last Reviewed 11/20/17 @ 08:40 by Indira Barr) HTN (hypertension) (Chronic) Type 2 diabetes mellitus (Chronic) Hospital Course and Treatment Operations: - - robotic simple prostatectomy Procedures: None Summary of Care Provided: The patient is a 78 year old male with 150gm prostate s/p robotic simple prostatectomy doign well, campbell to gravity, urine clear home with campbell. - Physical Exam General: Alert, Oriented x3, Cooperative HEENT: Atraumatic, PERRLA, EOMI, Normocephalic Neck: Supple, No JVD, Negative Carotid Bruits Lungs: Clear to auscultation, Normal air movement Cardiovascular: Regular rate, No murmurs Abdomen: Bowel Sounds Present, Soft, Non Tender Extremities: No edema, Capillary Refill Less than 3 Seconds Skin: No rashes, No breakdown Musculoskeletal: No Tenderness to Palpation of Joints or Extremities Neurological: Cranial nerves II-XII grossly intact Psych/Mental Status: Normal Affect, Appropriate Vital Signs Temp Pulse Resp BP Pulse Ox 98.4 F 82 16 150/74 H 96 02/24/19 03:15 02/24/19 03:15 02/24/19 03:15 02/24/19 03:15 02/24/19 03:15 Oxygen Flow Rate (L/min) 1.5 Oxygen Delivery Method Room Air Weight: 97.749 kg Body Mass Index (BMI) 29.2 Finger Stick Blood Glucose 146 Intake and Output for Last 24 Hours 02/22/19 02/23/19 02/24/19 23:59 23:59 23:59 Intake Total 4304 / 4304 4022 / 4022 650 / 650 Output Total 1950 / 1950 2450 / 2450 1450 / 1450 Balance 2354 / 2354 1572 / 1572 -800 / -800 Discharge Diet: Light diet - advance as tolerated Discharge Activity: May Not Drive, May not drive while taking narcotic pain medications., May Shower May shower in (days): 1 Call your doctor if your incision/area has: Continuous Slow Oozing, Sudden Increased Bleeding, Increased Pain/ Swelling, Increased Redness, Foul Smelling Discharge, Swelling at the incision site Call your doctor if you observe: Fever of 101 or Higher, Inability to have a bowel movement, Uncontrolled pain Suture Line Care: Avoid Pulling/Pushing, Avoid Pinching/Bending Cleanse incision/area with: Soap & Water Catheter: [place] to leg bag, [place] to large bag Drain: [place] Home Medications: Medications to take at Discharge Amlodipine [Norvasc] 5 mg PO QHS 05/30/17 Glimepiride [Amaryl] 2 mg PO DAILY 05/30/17 Lisinopril [Zestril] 20 mg PO DAILY 05/30/17 Metformin HCl [Glucophage] 1,000 mg PO QHS 05/30/17 Tamsulosin HCl [Flomax] 0.4 mg PO QHS 02/14/19 Acetaminophen [Tylenol Extra Strength] 500 mg PO Q4H PRN PRN #20 tablet 02/24/19 Ciprofloxacin [Cipro] 500 mg PO BID #20 tablet 02/24/19 Ibuprofen 600 mg PO Q6H PRN PRN #20 tablet 02/24/19 Following Prescrptions Were Given to Patient: Acetaminophen [Tylenol Extra Strength] 500 mg PO Q4H PRN PRN #20 tablet PRN Reason: Pain Ibuprofen 600 mg PO Q6H PRN PRN #20 tablet PRN Reason: Pain Ciprofloxacin [Cipro] 500 mg PO BID #20 tablet Primary Care Physician: Indira Tidwell MD [Primary Care Provider] - Please Follow Up With: Richard Fields MD When: please call to make an appointment. Medical Necessity - Tobacco Use Smoking Status: Former smoker Tobacco Use: Non-smoker Meaningful Use Info Meaningful Use Diagnoses (Choose all that apply): None applicable
[2019-02-24 09:22] VITALS: BP 163/69; PULSE 77; RESP 18; TEMP 36.9; O2SAT 98
== END 2019-02-24 09:30 | disposition home or self-care (01) | DRG 707 ==
LOC: SDC 16:34
PROVIDERS: Admitting Provider Urology; Family Provider Family Medicine; PCP Family Medicine; Referring Provider Urology; Visit Provider Urology
PROC: 0VT04ZZ Resection of Prostate, Percutaneous Endoscopic Approach (ICD-10-PCS; CPT 55867; principal; 2019-02-21 12:40)
DX: N40.1 Benign prostatic hyperplasia with lower urinary tract symptoms (principal); N13.8 Other obstructive and reflux uropathy; R33.8 Other retention of urine; E11.9 Type 2 diabetes mellitus without complications; Z79.84 Long term (current) use of oral hypoglycemic drugs; I10 Essential (primary) hypertension; Z87.891 Personal history of nicotine dependence
CPT/HCPCS: 36415; 80048; 82962; 85027; 86850; 86900; 88307; 88309; 88341; 88342; 93005; J7030; J7120; A4216; J0744; J2405

== ENCOUNTER → 2019-02-27 06:20 | Outpatient (CLI) | payer MEDICARE, SELFPAY ==
[2019-02-21 23:24] VITALS: BMI 29.2
--- NOTE | 2019-02-26 12:55 | RAD_ITS ---
STUDY: X-RAY - ORBITS REASON FOR EXAM: Male, 78 years old. This study is being performed as a clearance examination for exclusion of orbital metal, prior to the performance of an MRI examination. TECHNIQUE: 2 view(s) of the orbits were obtained. COMPARISON: None. FINDINGS: Normal bilateral orbits without a metallic orbital foreign body. Normal visualized facial bones. Normal paranasal sinuses. The soft tissue structures are unremarkable. RAD/Orbits for Foreign Body IMPRESSION: No demonstrated metallic orbital foreign body. The patient is cleared for an MRI examination. Electronically Signed: Darnell Novoa, at 13:16 EDT , Service support ,
--- NOTE | 2019-02-27 06:42 | MRI_ITS ---
STUDY: MRI ABDOMEN WITH AND WITHOUT CONTRAST REASON FOR EXAM: Male, 78 years old. Right renal mass follow-up TECHNIQUE: Standardized fat and water weighted pulse sequences were obtained in all 3 orthogonal planes post contrast administration. 20 IV Dotarem was administered for the contrast portion of the examination. COMPARISON: CT from 02/17/2019 FINDINGS: Based the chest is unremarkable. Normal liver. Normal gallbladder and extrahepatic biliary system. Normal spleen. Normal pancreas. Normal bilateral adrenal glands. Lobular heterogeneous mass of the mid inferior right kidney is redemonstrated measuring 7.1 x 4.9 x 4.5 cm (AP by transverse by craniocaudal) that is similar since recent CT. There are scattered areas of signal dropout suggesting punctate calcifications. The mass protrudes into the renal sinus with deformation of the renal calyces/pelvis. Mass protrudes into the posterior inferior perinephric fat. NO involvement of the adrenal gland identified. IVC opacifies normally without evidence of thrombus. The right renal vein opacifies normally (image 56 of series 11) without convincing evidence of venous thrombosis. There is simple T2 bright nonenhancing simple cysts of the bilateral kidneys. No perinephric fluid collection. The visualized hollow viscus structures are unremarkable. No retroperitoneal adenopathy/mass. No bone marrow edema. MRI/MRI Abd WITH and W/O Contrast IMPRESSION: 1. Lobular soft tissue mass of the posterior mid to inferior right kidney protruding into the renal sinus correlating to suspicious masses evident on recent CT (Bosniak IV). Right renal vein (and IVC) opacify normally without evidence of thrombosis/mass. 2. Simple (Bosniak 1) bilateral renal cysts. Electronically Signed: Collin Aguilar MD at 10:08 EDT , Service support ,
== END ==
PROVIDERS: Family Provider Family Medicine; PCP Family Medicine; Referring Provider Nurse Practitioner Adult Health; Visit Provider Nurse Practitioner Adult Health
DX: N28.89 Other specified disorders of kidney and ureter (principal); R93.89 Abnormal findings on diagnostic imaging of other specified body structures
CPT/HCPCS: 70030; 74183; A9575

== ENCOUNTER 2019-04-18 05:28 | Inpatient (IN) | payer MEDICARE, SELFPAY ==
[2019-02-21 23:24] VITALS: BMI 29.2
[2019-04-01 13:12] VITALS: BP 122/75; PULSE 72; RESP 16; TEMP 36.1; O2SAT 99; BMI 29.5
--- NOTE | 2019-04-01 13:28 | RAD_ITS ---
STUDY: X-RAY CHEST REASON FOR EXAM: Male, 78 years old. Preoperative evaluation for renal mass. TECHNIQUE: PA and lateral views of the chest. COMPARISON: None. FINDINGS: Elevation of the right hemidiaphragm. Mild increased markings at the lung bases suggestive of scarring. The lungs are clear and expanded. There is no demonstrated pleural abnormality. Normal size heart. Normal mediastinum and yevgeniy. Normal visualized pulmonary arteries. There is atherosclerotic calcification of the aortic arch with tortuosity. There are diffuse degenerative changes of the visualized thoracic spine. Normal visualized ribs, clavicles, and shoulders. There is no demonstrated abnormality of the visualized soft tissue structures of the upper abdomen. RAD/Chest PA and Lateral IMPRESSION: No acute abnormality is seen. Electronically Signed: Darnell Novoa, at 14:30 EDT , Service support ,
[2019-04-01 14:56] LABS: Hemoglobin 12.9 g/dl (13.0-16.5); Mean Corp Hgb Conc 33.1 g/gl (32-36); Mean Corpuscular Hgb 30.5 pg (27.0-32.0); Mean Corpuscular Volume 92.2 fL (80-94); Mean Platelet Vol. 10.4 fl (6.2-12.0); Platelet Count 160 K/mm3 (150-450); RBC Distribution Width CV 14.5 % (11.6-14.6); Red Blood Count 4.23 M/mm3 (4.6-6.2); White Blood Count 4.5 K/mm3 (4.4-11.0)
[2019-04-01 14:57] LABS: Scan Indicated on CBC? Y/N NO
[2019-04-01 15:22] LABS: Hemoglobin A1c 5.7 % (4.2-6.3)
[2019-04-01 15:23] LABS: ALB/GLOB Ratio 0.9 RATIO (0.9-2.4); AST(SGOT) 25 U/L (15-37); Alanine Aminotransfer ALT/SGPT 28 U/L (16-61); Albumin, Serum 3.9 g/dL (3.2-5.0); Alkaline Phosphatase 61 U/L (45-117); Anion Gap 11 (5-15); BUN 19 mg/dL (7-18); BUN/Creat Ratio 20.8 RATIO (10-20); Calcium,Total 9.5 mg/dL (8.5-10.1); Chloride 103 mmol/L (98-107); Creatinine, Serum 0.91 mg/dL (0.70-1.30); EST Glomerular Filtration Rate 86 mL/min (>60); Est Glom Filt Rate - Afr Amer 104 mL/min (>60); Globulin 4.4 g/dL (2.2-4.2); Glucose 83 mg/dL (74-106); Potassium 4.5 mmol/L (3.5-5.1); Protein, Total 8.3 g/dL (6.4-8.2); Sodium Level 142 mmol/L (136-145)
[2019-04-18] VITALS (14 sets, daily range): BP systolic 103–132; BP diastolic 61–78; PULSE 65–91; RESP 1–16; TEMP 36–36.6; O2SAT 92–98; BMI 29.5
--- NOTE | 2019-04-18 | KID_PTH ---
PATIENT: YUKI HERNANDEZ LOC: MS3 U#:[id number] AGE/SX: 78/M ROOM: CT321 RE04/18/[address]: Dr. Richard Fields MD : 1940 BED: 1 DIS: 04/22/2019 SPEC #: [id number] RECD: 04/18/19 10:43 STATUS: LEXIS REQ #: [id number] ZARA: 04/18/19 00:[address]: Richard Fields DEPT: SURGICAL PATHOLOGY RECD BY: Shikha Roper ENTERED: 04/18/19 11:06 SP TYPE: KIDNEY OTHR DR: Dr. Indira Tidwell MD Tissues: Kidney, NOS Procedures: Frozen Section (charge) Surgery Specimen Level V HEADER OPERATION: Laparoscopic robotic right radical nephrectomy PRE-OP DIAGNOSIS: Neoplasm of right kidney TISSUE SUBMITTED: Right kidney for frozen section FROZEN SECTION DIAGNOSIS Right kidney, nephrectomy: Clear cell renal cell carcinoma. 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 See cancer checklist below. AM:faustino 04/22/19 COMMENT KIDNEY CANCER SUMMARY: Procedure - radical nephrectomy Specimen laterality - right kidney Tumor site - middle portion Tumor size - 6 x 6 x 5.5 cm Tumor focality - unifocal Macroscopic extent of tumor - tumor limited to kidney Histologic type - clear cell renal cell carcinoma Sarcomatoid features - not present Tumor necrosis - not present Histologic grade (Telly nuclear grade) - G2 (nuclei slightly irregular and nuclei present) Microscopic tumor extension - tumor limited to kidney Margins - uninvolved by invasive carcinoma Lymph-Vascular invasion - not identified Regional lymph nodes - no nodes found Pathologic findings in non-neoplastic kidney - none identified Other tumor and/or tumor-like lesions - benign fibrous wall cyst with dystrophic microcalcifications. PATHOLOGIC STAGE: pT1b Nx Mx The above summary is in compliance with [employer] (CAP) Cancer Protocols Checklist and [place] [employer] Committee on Cancer (AJCC), Staging Manual, 8th Ed. Case has been reviewed in consultation with Dr. Colon who concurs with the above diagnosis. IDC:[id number] MICROSCOPIC DESCRIPTION Slides are reviewed. GROSS DESCRIPTION Received fresh for frozen section consultation labeled with the patient's name is a specimen designated right kidney. The specimen consists of a kidney surrounded by fibrofatty tissue measuring 23.5 x 11 x 5.5 cm and weighing 843 gm. The specimen is bisected to reveal a yellow-montoya lesion in which there are foci of hemorrhage measuring 6 x 6 x 5.5 cm. Neoplasm does not extend into the perirenal fat is not present in the soft tissue line of resection. The kidney measures 13 x 6 x 5.5 cm. The mass is located in the mid portion of the kidney. Dissection of the renal veins, particularly those draining the area of mass, does not show intravascular presence of neoplasm. On sectioning, the mass is roughly spherical. The tumor does not involve the pelvicaliceal system or the renal sinus. The tumor sharply demarcated from the renal parenchyma which appears essentially unremarkable. Satellite nodules are tumor are not identified. An adrenal gland is not present. An 8.5 cm segment of distal ureter is present and is essentially unremarkable. A smooth walled cyst containing clear fluid is present adjacent to the tumor. The cyst measures 4.5 x 3.5 cm in greatest dimension. Neoplasm does not appear to extend into this cyst. No lymph nodes are encountered in the renal sinus. Officer Captain sections are submitted in ten cassettes as follows: 1 - tumor for frozen section, 2 - uteric and vascular margins of resection, 3 - renal sinus, 4 - tumor in relationship to renal pelvis, 5 - tumor in relationship to perinephric fat, 6-8 - additional sections of tumor, 9 - renal cyst, 10 - uninvolved renal parenchyma with adjacent tumor. / AM:faustino 04/21/19 TC:0 CPT: 38127, [id number]
[2019-04-18 06:26] LABS: Bedside Glucose 134 mg/dL (70-110)
[2019-04-18] MEDS: Cefazolin 2 GM in 0.9% Normal Saline 100 ML IV (07:27)
[2019-04-18] MEDS: Bupivacaine 0.5% PF 10 ML VIAL (11:00)
--- NOTE | 2019-04-18 11:05 | OP.PCM_ITS ---
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 78-year-old male taken back to the operating room after smooth induction of general anesthesia he is placed in dorsolithotomy position. He was then placed in full flank position with the right side up the table flexed the pressure points padded and his arm out to the side. He was taped to the table we made zapata re that all his pressure points were padded his neck was straight. He was intubated for the procedure. We then prepped and draped the patient usual sterile fashion, marked out my landmarks for my robot trochars, made an incision in the abdomen advanced a Veress needle into the abdomen and filled the abdomen the CO2 gas. I then placed my camera trocar, right arm trocar, left arm trocar, a second trocar for retraction of the kidney, and then we placed a air seal port in the umbilicus. Robot was docked and I proceeded the dissection I first incised the white line of Toldt reflected the colon off the kidney starting anterior to the kidney working my way down the pelvis they had a large floppy liver on top of the kidney the attachments within the liver and the kidney were released the liver was still floppy and floppy enlarged on top of the kidney but it was a healthy looking the liver. Once I dissected the colon off the kidney sufficiently and to identify the gonadal vessels went below the gonadal vessels identified the psoas muscle and was able to elevate the kidney cephalad I then docked the graft or to hold the kidney up. I then started the dissection along the inferior vena cava working my way up to the renal hilum as we marched along the inferior vena cava came along the duodenum this was kocherized very sharply there is a lot of serpentine vessels all over the place that unfortunately would not be able to cauterize because of the close proximity to the duodenum at the cut is and experienced a lot of bleeding at this point with cutting these vessels and then as we went past this then we went up to the first branch there was a gonadal branch coming off the gonadal vessels straight into the vena cava this is clipped and ligated we then went cephalad more and we came across the gonadal vessel diving deep into the vena cava this was then clipped 2 clips down and one clip up then we went up to the kidney we found the first artery branch that was behind the renal vein this was clipped and ligated it was very easily accessible we then marched and stripped cephalad to the renal vein and dissected and we got into some bleeding made the dissection more difficult as we could not see the hilum clearly there was a small arterial branch that come off the renal artery that was bleeding quite heavily right entire field after some time I held some pressure on this we could find the bleeder with a clip was placed on this we then placed a clip on the renal vein and then we placed a clip on the renal artery but then suddenly started getting bleeding from above the hilum from the kidney itself not coming to the hilum but backbleeding from the the kidney pretty significant torrential black backbleeding from the hilum made the visible ability extremely difficult to suction was used constantly to hold his bleeding at the point multiple clips on multiple veins on the kidney to eventually stop this bleeding once the bleeding is stopped and I could not visually see the hilum again but it made quite difficult then I did dissected the vein decided to go and take the veins of the vein was clipped 2 clips down and one clip up but the but the vein required 2 clips to control the whole vein and then saw the artery and then we put 2 clips down the artery one clip up in plane across the renal artery at this point significant bleeding occurred just because of the com plex hilum that had to be ligated then we went [place] spare the adrenal gland To gentleman with the patient and then dissected the superior aspect of the kidney of the liver and then went down inferiorly and dissected and transected through the ureter with a clip in the gonadal vein with a clip and then dissected along the lateral wall of the kidney referring up drawers fascia of the lateral wall. We then kept marching along the lateral wall and freeing up the fascia the peritoneum segment block layer the lateral wall and then we rolled the kidney off the lateral wall of the kidney off the top apical corner where he was in the abdomen is finally was free we then placed the kidney in Endo Catch bag and we extracted it through the lower port site extending the port site closed this port site took about tenderness to close this up we look back in the abdomen there was only a small amount amount of welling in the hilar area no significant amount acute relation of blood we suctioned out all the visible blood in the abdomen we irrigated copiously I then placed FloSeal in the hilar sites where the clips and vessels were did not see any active pumping or or bleeding we lower the pressure to 5 to check with the Sathre for 5 minutes looking at the hilar vessels in the hilum again no bleeding was noted at this point I was satisfied with the control we left the liver back over we closed the camera trocar with a potential trigger with a Saeed Preston stitch and we closed the umbilical site with a 10 - 12 Saeed stitch. We then closed the subcuticular layer of the skin and then we closed the skin with interrupted stitches and then patient's anesthetic was reversed the urine was checked he did receive 2 units of blood during the case and but at the end of the case is hemodynamically stable will check blood in the PACU and is take back to PACU in good condition. Type of Anesthesia:: General Drains: campbell - Admit VTE Documentation VTE Present on Admission: No VTE Mechan Device Prophylaxis: SCD's
[2019-04-18 12:19] LABS: Absolute Lymphocyte Count 0.47 X10^3/ul (0.83-4.51); Absolute Neutrophil Count 4.4 X10^3/uL (2.0-7.7); Basophil# 0.01 X10^3/uL; Basophil% 0.2 % (0-1); Eosinophil# 0.02 X10^3/uL; Eosinophils% 0.4 % (0-5); Hemoglobin 11.4 g/dl (13.0-16.5); Lymphocyte # 0.47 X10^3/ul (4.0); Mean Corp Hgb Conc 32.6 g/gl (32-36); Mean Corpuscular Hgb 29.5 pg (27.0-32.0); Mean Corpuscular Volume 90.4 fL (80-94); Monocyte# 0.26 X10^3/uL; Neutrophil # 4.44 X10^3/uL (2.7-7.7); Platelet Count 127 K/mm3 (150-450); RBC Distribution Width CV 15.4 % (11.6-14.6); RBC Distribution Width SD 51.1 fl (35.1-43.9); Red Blood Count 3.87 M/mm3 (4.6-6.2); White Blood Count 5.2 K/mm3 (4.4-11.0)
[2019-04-18 12:20] LABS: Differential Indicated SCAN CRITERIA MET; POSITIVE COUNT NO; POSITIVE DIFFERENTIAL YES; POSITIVE MORPHOLOGY YES
[2019-04-18 12:21] LABS: Anion Gap 5 (5-15); BUN 13 mg/dL (7-18); BUN/Creat Ratio 10.7 RATIO (10-20); Chloride 107 mmol/L (98-107); Creatinine, Serum 1.22 mg/dL (0.70-1.30); EST Glomerular Filtration Rate 61 mL/min (>60); Est Glom Filt Rate - Afr Amer 74 mL/min (>60); Estimated Creatinine Clearance 56.54 ml/min; Glucose 252 mg/dL (74-106); Potassium 3.7 mmol/L (3.5-5.1); Sodium Level 138 mmol/L (136-145)
[2019-04-18 13:14] LABS: Differential Comment SCANNED; Platelet Estimate SLT DEC (ADEQ)
[2019-04-18] MEDS: Morphine 2 MG/ML Syringe IV ×2 (14:00→21:57)
[2019-04-18] MEDS: 0.45% Normal Saline 1,000 ML 125 ML IV ×2 (14:06→21:59)
[2019-04-18] MEDS: Pantoprazole Sodium 20 MG Tablet PO (15:45)
[2019-04-18] MEDS: Docusate Sodium 100 MG Capsule PO ×2 (15:45→22:00)
[2019-04-18] MEDS: Magnesium Hydroxide 30 ML UDC 15 ML PO (15:45)
[2019-04-18] MEDS: HYDROcodone Bitartrate/Apap 5/325 Tablet PO ×2 (17:33→23:55)
[2019-04-18 21:41] LABS: Bedside Glucose 141 mg/dL (70-110)
[2019-04-18] MEDS: amLODIPine 5 MG Tablet PO (21:59)
[2019-04-18] MEDS: BENZOCAINE/MENTHOL 1 LOZENGE 2 LOZENGE MUCOUS MEM (22:00)
[2019-04-19] MEDS: Morphine 2 MG/ML Syringe IV ×2 (02:53→09:21)
[2019-04-19 02:56] VITALS: BP 104/65; PULSE 89; RESP 16; TEMP 36.6; O2SAT 94
[2019-04-19] MEDS: HYDROcodone Bitartrate/Apap 5/325 Tablet PO ×2 (05:57→16:26)
[2019-04-19] MEDS: 0.45% Normal Saline 1,000 ML 125 ML IV (05:57)
[2019-04-19 06:10] LABS: Bedside Glucose 138 mg/dL (70-110)
[2019-04-19 07:05] LABS: Hematocrit 31.4 % (40-54); Hemoglobin 10.3 g/dl (13.0-16.5); Mean Corp Hgb Conc 32.8 g/gl (32-36); Mean Corpuscular Hgb 29.8 pg (27.0-32.0); Mean Corpuscular Volume 90.8 fL (80-94); Platelet Count 141 K/mm3 (150-450); RBC Distribution Width CV 16.2 % (11.6-14.6); Red Blood Count 3.46 M/mm3 (4.6-6.2); White Blood Count 10.4 K/mm3 (4.4-11.0)
[2019-04-19 07:06] LABS: Scan Indicated on CBC? Y/N NO
[2019-04-19 07:29] LABS: Anion Gap 9 (5-15); BUN 16 mg/dL (7-18); BUN/Creat Ratio 11.2 RATIO (10-20); Calcium,Total 7.8 mg/dL (8.5-10.1); Chloride 103 mmol/L (98-107); Creatinine, Serum 1.43 mg/dL (0.70-1.30); EST Glomerular Filtration Rate 51 mL/min (>60); Est Glom Filt Rate - Afr Amer 62 mL/min (>60); Estimated Creatinine Clearance 48.24 ml/min; Glucose 138 mg/dL (74-106); Potassium 4.1 mmol/L (3.5-5.1); Sodium Level 138 mmol/L (136-145)
--- NOTE | 2019-04-19 08:17 | PN_ITS ---
Subjective: Postoperative day #1 status post a right radical nephrectomy, he had very complex vasculature and sustained some bleeding during the resection of the kidney had to get 2 units of blood. Fortunately has been stable. Like count is stable. Vital signs are stable he is up out of chair tolerating liquids this morning. - Physical Exam General: Alert, Oriented x3, Cooperative HEENT: Atraumatic, PERRLA, EOMI, Normocephalic Neck: Supple, No JVD, Negative Carotid Bruits Lungs: Clear to auscultation, Normal air movement Cardiovascular: Regular rate, No murmurs Abdomen: Bowel Sounds Present, Soft, Non Tender Extremities: No edema, Capillary Refill Less than 3 Seconds Skin: No rashes, No breakdown Musculoskeletal: No Tenderness to Palpation of Joints or Extremities Neurological: Cranial nerves II-XII grossly intact Psych/Mental Status: Normal Affect, Appropriate Vital Signs Temp Pulse Resp BP Pulse Ox 97.8 F 89 16 104/65 94 04/19/19 02:56 04/19/19 02:56 04/19/19 02:56 04/19/19 02:56 04/19/19 02:56 Oxygen Flow Rate (L/min) 2 Oxygen Delivery Method Room Air Weight: 98.8 kg Body Mass Index (BMI) 29.5 Finger Stick Blood Glucose 252 Intake and Output for Last 24 Hours 04/17/19 04/18/19 04/19/19 23:59 23:59 23:59 Intake Total 3669 / 3669 1144 / 1144 Output Total 1210 / 1210 725 / 725 Balance 2459 / 2459 419 / 419 Laboratory Tests Past 24 Hrs 04/14/19 04/18/19 04/18/19 10:43 12:00 12:00 WBC 5.2 RBC 3.87 L Hgb 11.4 L Hct 35.0 L MCV 90.4 MCH 29.5 MCHC 32.6 RDW 15.4 H RDW Differential 51.1 H Plt Count 127 L MPV 10.0 Immature Gran % (Auto) 0.400 Neut % (Auto) 85.0 H Lymph % (Auto) 9.0 L [place] % (Auto) 5.0 Eos % (Auto) 0.4 Baso % (Auto) 0.2 Absolute Neuts (auto) 4.4 Absolute Lymphs (auto) 0.47 L Total Counted Not Reportable Differential Comment SCANNED Platelet Estimate SLT DEC Sodium 138 Potassium 3.7 Chloride 107 Carbon Dioxide 26.0 Anion Gap 5 BUN 13 Creatinine 1.22 Estim Creat Clear Calc 56.54 Est GFR (MDRD) Af Amer 74 Est GFR (MDRD) Non-Af 61 BUN/Creatinine Ratio 10.7 Glucose 252 H Calcium 8.0 L Blood Type A POSITIVE Antibody Screen NEGATIVE Crossmatch See Detail 04/19/19 04/19/19 06:30 06:30 WBC 10.4 RBC 3.46 L Hgb 10.3 L Hct 31.4 L MCV 90.8 MCH 29.8 MCHC 32.8 RDW 16.2 H RDW Differential 52.0 H Plt Count 141 L MPV 10.0 Immature Gran % (Auto) Neut % (Auto) Lymph % (Auto) [place] % (Auto) Eos % (Auto) Baso % (Auto) Absolute Neuts (auto) Absolute Lymphs (auto) Total Counted Differential Comment Platelet Estimate Sodium 138 Potassium 4.1 Chloride 103 Carbon Dioxide 26.0 Anion Gap 9 BUN 16 Creatinine 1.43 H Estim Creat Clear Calc 48.24 Est GFR (MDRD) Af Amer 62 Est GFR (MDRD) Non-Af 51 L BUN/Creatinine Ratio 11.2 Glucose 138 H Calcium 7.8 L Blood Type Antibody Screen Crossmatch POC Glucose 04/19/19 04/18/19 06:07 21:30 POC Glucose 138 H 141 H Medical Necessity - Tobacco Use Smoking Status: Former smoker Assessment/Plan 78-year-old male status post radical right nephrectomy for renal cell carcinoma, Hep-Lock IV fluids, Saucedo catheter was removed, ambulate in the hallways, advance diet as tolerated told the goal will slowly to stick with mostly full liquids fluids little bit of solid food for now, no nausea or vomiting. Hopefully anticipate discharge once bowel function returns and is stable.
[2019-04-19 08:51] VITALS: BP 120/60; PULSE 93; RESP 20; TEMP 36.9; O2SAT 96
[2019-04-19] MEDS: Docusate Sodium 100 MG Capsule PO ×2 (08:53→22:36)
[2019-04-19] MEDS: Pantoprazole Sodium 20 MG Tablet PO (08:53)
[2019-04-19] MEDS: Glimepiride 2 MG Tablet PO (09:01)
[2019-04-19] MEDS: Lisinopril 20 MG Tablet PO (09:01)
[2019-04-19] MEDS: Magnesium Hydroxide 30 ML UDC 15 ML PO (09:23)
--- NOTE | 2019-04-19 09:24 | NURSING ---
Walked in scherer twice thus far today. was sitting in chair, now back in bed.
--- NOTE | 2019-04-19 10:47 | CM.UR ---
RN CM [employer]ER CM to room to meet with patient for initial transition planning/care coordination assessment. NORM HOPPER introduced self and role at [facility]. Pt voices understanding and consents to assessment at this time. Pt resting in bed in no distress at this time. No family members present. Pt is A/O at this time and answers all questions appropriately. Care providers, pharmacy, and demographics verified at this time. PCP: [facility] Specialists: [facility] for urology. Preferred Pharmacy: [facility] Insurance: Tune Prescription Benefit: Therio Living Will/HPOA: None. Discussed our conversation during February admission. Patient states we know what to do, we just need to do it. Declines any additional assistance regarding it at this time. Reinforced that we can do it while he is here or he can make SW appt after discharge. Verb understanding. LNOK: , [place] Living Arrangements: Split level. Does have railings. ADLs: Independent with all ADLs normally. States he is noticing that things require a little more effort overall, getting up in morning and doing stairs but he'll see how he recovers after this surgery. Transportation: Pt states drives self and states no transportation concerns at this time. States will drive him while he is not allowed to drive. DME: Denies using any DME and denies needs. has cane, crutches and BP cuff. HHC/SNF: No history of either. Denies needs for HHC. No needs identified. Pt wishes to return home and states has no concerns with going home at time of discharge. CM to follow for any discharge planning/needs. Pt voices no further concerns/needs at this time. Advised pt to ask for CM if any further questions/concerns/needs arise. Voices understanding. PLAN: Home with spousal and family support. Has 8 kids that can help as needed. Giorgio Hoover RN, [facility].
[2019-04-19 16:21] VITALS: BP 107/55; PULSE 112; RESP 20; TEMP 37.7; O2SAT 100
[2019-04-19 16:40] VITALS: PULSE 112
[2019-04-19 17:35] LABS: Bedside Glucose 143 mg/dL (70-110)
--- NOTE | 2019-04-19 18:36 | NURSING ---
Voided earlier this afternoon that was not measured. Voided 300cc just now and this nurse bladder scanned pt for 547cc. This nurse called Dr. Fields and order for st. cath x1.
[2019-04-19 19:36] VITALS: BP 115/68; PULSE 87; PULSE 90; RESP 16; TEMP 36.9; O2SAT 92
--- NOTE | 2019-04-19 19:51 | NURSING ---
Despite pt getting up and voiding 450ml on own, this nurse bladder scanned pt again after he voided that amt and Bladder scan said 467ml. this nurse st. Cathed pt x1 at this time and obtained 600cc of clr yellow urine. Informed Sybil ZHENG manufacturing shift supervisor.
[2019-04-19] MEDS: amLODIPine 5 MG Tablet PO (22:36)
[2019-04-20 01:41] LABS: Bedside Glucose 100 mg/dL (70-110)
[2019-04-20 02:00] VITALS: BP 140/79; PULSE 104; PULSE 106; RESP 16; TEMP 37.2; O2SAT 93
[2019-04-20] MEDS: HYDROcodone Bitartrate/Apap 5/325 Tablet PO (03:15)
[2019-04-20 07:00] LABS: Bedside Glucose 112 mg/dL (70-110)
--- NOTE | 2019-04-20 07:34 | PCM.PROGNOTE ---
Subjective: 78-year-old male status post right radical nephrectomy about 2 days ago, vital signs are stable he has got a low-grade fever but unexpected doing well still has not passed gas is tolerating regular diet Saucedo catheter down is urinating okay no swelling of the legs is been able to walk in the hallways he is up in a chair breathing comfortably looking comfortable no distress which is waiting for his bowels to restart working given suppository today. - Physical Exam General: Alert, Oriented x3, Cooperative HEENT: Atraumatic, PERRLA, EOMI, Normocephalic Neck: Supple, No JVD, Negative Carotid Bruits Lungs: Clear to auscultation, Normal air movement Cardiovascular: Regular rate, No murmurs Abdomen: Bowel Sounds Present, Soft, Non Tender Extremities: No edema, Capillary Refill Less than 3 Seconds Skin: No rashes, No breakdown Musculoskeletal: No Tenderness to Palpation of Joints or Extremities Neurological: Cranial nerves II-XII grossly intact Psych/Mental Status: Normal Affect, Appropriate Vital Signs Temp Pulse Resp BP Pulse Ox 99 F 106 H 16 140/79 H 93 04/20/19 02:00 04/20/19 02:00 04/20/19 02:00 04/20/19 02:00 04/20/19 02:00 Oxygen Flow Rate (L/min) 2 Oxygen Delivery Method Room Air Weight: 98.8 kg Body Mass Index (BMI) 29.5 Finger Stick Blood Glucose 252 Intake and Output for Last 24 Hours 04/18/19 04/19/19 04/20/19 23:59 23:59 23:59 Intake Total 3669 / 3669 1764 / 1764 200 / 200 Output Total 1210 / 1210 1725 / 1725 1200 / 1200 Balance 2459 / 2459 39 / 39 -1000 / -1000 POC Glucose 04/20/19 04/19/19 04/19/19 06:54 22:31 16:33 POC Glucose 112 H 100 143 H Medical Necessity - Tobacco Use Smoking Status: Former smoker Assessment/Plan 78-year-old male status post right radical nephrectomy for renal cell carcinoma, await return of bowel function will get a bowel suppository today continue ambulation diet as tolerated anticipate may be home tomorrow once his bowels get moving, on exam his abdomen still a little bit firm not distended not painful not tender.
[2019-04-20 08:00] VITALS: BP 140/73; PULSE 99; RESP 18; TEMP 36.9; O2SAT 93
[2019-04-20] MEDS: Glimepiride 2 MG Tablet PO (08:09)
[2019-04-20] MEDS: Bisacodyl 10 MG Suppository RECTAL (08:09)
[2019-04-20] MEDS: Pantoprazole Sodium 20 MG Tablet PO (08:09)
[2019-04-20] MEDS: Docusate Sodium 100 MG Capsule PO ×2 (08:09→23:32)
[2019-04-20] MEDS: Lisinopril 20 MG Tablet PO (08:10)
[2019-04-20] MEDS: Magnesium Hydroxide 30 ML UDC 15 ML PO (08:12)
[2019-04-20 12:26] LABS: Bedside Glucose 124 mg/dL (70-110)
[2019-04-20 14:04] VITALS: BP 126/69; PULSE 101; RESP 20; TEMP 37.1; O2SAT 97
--- NOTE | 2019-04-20 14:14 | NURSING ---
Abd looks more distended then this morning. I feel . Pt is belching but still not passing flatus. Ducolax suppository that was given this morning still has not been effective. BS hyperactive x4 qauds. Dr. Fields is aware of all this and new orders for clear liquid diet, NS at 50ml. Will continue to monitor.
[2019-04-20] MEDS: 0.9% NaCl Peripheral Flush Adult/Peds IV (15:07)
[2019-04-20] MEDS: 0.9% Normal Saline 1,000 ML 50 ML IV (15:07)
[2019-04-20 16:11] LABS: Bedside Glucose 129 mg/dL (70-110)
[2019-04-20 20:46] VITALS: BP 149/80; PULSE 87; RESP 18; TEMP 37.1; O2SAT 95
[2019-04-20] MEDS: amLODIPine 5 MG Tablet PO (23:32)
[2019-04-20 23:50] LABS: Bedside Glucose 123 mg/dL (70-110)
[2019-04-21 02:55] VITALS: BP 132/58; PULSE 93; RESP 18; TEMP 36.6; O2SAT 95
[2019-04-21 07:05] LABS: Bedside Glucose 114 mg/dL (70-110)
--- NOTE | 2019-04-21 07:20 | PN_ITS ---
Subjective: Postoperative day #3 abdomen is now a little bit more distended he is still not passed gas has not had a bowel movement had a little bit of a liquid come out to the rectum but still abdomen is distended elicit soft and nontender is just tender over the incision site, he is still in the chair feeling more uncomfortable because of distended belly but no fevers or chills no nausea or vomiting. Working continue with clear liquid diet, Dulcolax suppository, ambulation - Physical Exam General: Alert, Oriented x3, Cooperative HEENT: Atraumatic, PERRLA, EOMI, Normocephalic Neck: Supple, No JVD, Negative Carotid Bruits Lungs: Clear to auscultation, Normal air movement Cardiovascular: Regular rate, No murmurs Abdomen: Bowel Sounds Present, Soft, Non Tender, Distended Extremities: No edema, Capillary Refill Less than 3 Seconds Skin: No rashes, No breakdown Musculoskeletal: No Tenderness to Palpation of Joints or Extremities Neurological: Cranial nerves II-XII grossly intact Psych/Mental Status: Normal Affect, Appropriate Vital Signs Temp Pulse Resp BP Pulse Ox 97.8 F 93 18 132/58 H 95 04/21/19 02:55 04/21/19 02:55 04/21/19 02:55 04/21/19 02:55 04/21/19 02:55 Oxygen Flow Rate (L/min) 2 Oxygen Delivery Method Room Air Weight: 98.8 kg Body Mass Index (BMI) 29.5 Finger Stick Blood Glucose 252 Intake and Output for Last 24 Hours 04/19/19 04/20/19 04/21/19 23:59 23:59 23:59 Intake Total 1764 / 1764 620 / 620 1300 / 1300 Output Total 1725 / 1725 2300 / 2300 600 / 600 Balance 39 / 39 -1680 / -1680 700 / 700 POC Glucose 04/21/19 04/20/19 04/20/19 06:33 23:35 16:04 POC Glucose 114 H 123 H 129 H 04/20/19 11:57 POC Glucose 124 H Medical Necessity - Tobacco Use Smoking Status: Former smoker Assessment/Plan Postoperative day #3 on examination still has a few bowel sounds ambulation con tinue with IV fluids we will check a CBC and a BMP, Dulcolax suppository today make sure all the lecture lites and everything are okay discharge once his ileus resolves.
[2019-04-21 07:50] LABS: Hematocrit 29.7 % (40-54); Hemoglobin 9.5 g/dl (13.0-16.5); Mean Corpuscular Hgb 29.5 pg (27.0-32.0); Mean Corpuscular Volume 92.2 fL (80-94); Mean Platelet Vol. 9.5 fl (6.2-12.0); Platelet Count 121 K/mm3 (150-450); RBC Distribution Width CV 15.7 % (11.6-14.6); RBC Distribution Width SD 53.4 fl (35.1-43.9); Red Blood Count 3.22 M/mm3 (4.6-6.2)
[2019-04-21 08:05] LABS: Scan Indicated on CBC? Y/N NO
[2019-04-21 08:10] LABS: Anion Gap 6 (5-15); BUN 17 mg/dL (7-18); BUN/Creat Ratio 13.1 RATIO (10-20); Calcium,Total 8.5 mg/dL (8.5-10.1); Chloride 105 mmol/L (98-107); EST Glomerular Filtration Rate 57 mL/min (>60); Est Glom Filt Rate - Afr Amer 69 mL/min (>60); Estimated Creatinine Clearance 53.06 ml/min; Glucose 124 mg/dL (74-106); Potassium 3.9 mmol/L (3.5-5.1); Sodium Level 138 mmol/L (136-145)
[2019-04-21 09:13] VITALS: BP 157/85; PULSE 106; RESP 18; TEMP 36.8; O2SAT 96
[2019-04-21] MEDS: Bisacodyl 10 MG Suppository RECTAL (09:18)
[2019-04-21] MEDS: Lisinopril 20 MG Tablet PO (09:19)
[2019-04-21] MEDS: Glimepiride 2 MG Tablet PO (09:20)
[2019-04-21] MEDS: Pantoprazole Sodium 20 MG Tablet PO (09:20)
[2019-04-21] MEDS: Magnesium Hydroxide 30 ML UDC 15 ML PO (09:22)
[2019-04-21] MEDS: Docusate Sodium 100 MG Capsule PO (09:22)
[2019-04-21 11:55] LABS: Bedside Glucose 128 mg/dL (70-110)
[2019-04-21] MEDS: HYDROcodone Bitartrate/Apap 5/325 Tablet PO (13:57)
[2019-04-21 13:58] VITALS: BP 143/83; PULSE 89; RESP 18; TEMP 36.8; O2SAT 98
--- NOTE | 2019-04-21 16:28 | CT_ITS ---
STUDY: CT ABDOMEN AND PELVIS WITHOUT CONTRAST REASON FOR EXAM: Male, 78 years old. Abdominal pain. History of right nephrectomy on 04/18/2019 RADIATION DOSAGE (If Supplied By Facility): CTDIvol = ( 15.21 ) mGy, DLP = ( 839.94 ) mGycm TECHNIQUE: Transaxial images were obtained from the dome of the diaphragm to the symphysis pubis without oral contrast, and without intravenous contrast. Sagittal and coronal images were reconstructed. Individualized dose optimization techniques were used for this CT. COMPARISON: CT dated 02/17/2019 and 02/07/2019. FINDINGS: Evaluation of the abdominal viscera is limited in the absence of intravenous contrast. There is a small left pleural effusion. There is atelectasis at the lung bases. The visualized portions of the heart and pericardium are within normal limits. The patient is status post right nephrectomy. There is subcutaneous air in the right abdominal wall and free air noted in the right renal fossa and in the abdomen and pelvis, consistent with the patient's recent postoperative state. There is a [id number] amount of intermediate density fluid (25-40 Hounsfield units) in the right renal fossa which tracks inferiorly into the pelvis. This is consistent with a component of blood. There are no calcified gallstones present. The liver demonstrates an unremarkable unenhanced appearance. The spleen is normal in size. The pancreas demonstrates an unremarkable unenhanced appearance. The adrenal glands are within normal limits. There are no renal or ureteral stones. There is no hydronephrosis. Normal visualized stomach. There is no bowel obstruction or inflammation. The appendix is not visualized, but there are no findings to suggest acute appendicitis. The aorta is normal in caliber. The urinary bladder is trabeculated in appearance which is stable when compared with the prior exam. The prostate is enlarged, but stable. There are no destructive osseous lesions. CT/Abdomen/Pelvis without Cont IMPRESSION: Status post right nephrectomy. Subcutaneous air in the right abdominal wall and free air noted in the right renal fossa and in the abdomen and pelvis which is consistent with the patient's recent postoperative state. Small to moderate amount of intermediate density fluid in the right renal fossa which tracks into the pelvis. This is consistent with ascites with a component of blood. Please note that active bleeding cannot be excluded without intravenous contrast. If indicated, further evaluation with a CT angiogram can be performed. Small left pleural effusion. Bibasilar atelectasis. N.B. : The above information has been verbally conveyed by Eduin Winn to Millicent Valderrama RN, on 04/21/2019 17:30:01 (ET). Electronically Signed: Eduin Winn, at 17:20 EDT Tel , Service support ,
[2019-04-21] MEDS: Morphine 2 MG/ML Syringe IV (16:33)
--- NOTE | 2019-04-21 17:33 | NURSING ---
took critical result from radiology. updated Primary RN and echo vascular technologist. Dr. Fields Paged.
[2019-04-21 17:55] LABS: Bedside Glucose 110 mg/dL (70-110)
--- NOTE | 2019-04-21 18:24 | NURSING ---
x2 attempts made to notify DR Fields of CT results of PT
--- NOTE | 2019-04-21 19:03 | NURSING ---
Spoke with Dr. miller whom stated he did not feel that patient had active bleeding and did not want a further CT ordered.
[2019-04-21 19:58] VITALS: BP 126/65; PULSE 90; RESP 18; TEMP 37.2; O2SAT 97
[2019-04-21] MEDS: amLODIPine 5 MG Tablet PO (21:31)
[2019-04-21 21:40] LABS: Bedside Glucose 140 mg/dL (70-110)
[2019-04-22 02:47] VITALS: BP 125/68; PULSE 81; RESP 18; TEMP 37.3; O2SAT 96
[2019-04-22 06:41] LABS: Bedside Glucose 138 mg/dL (70-110)
--- NOTE | 2019-04-22 07:15 | DCINST_ITS ---
Discharge Diet: Light diet - advance as tolerated Discharge Activity: Return to Normal Activity, May not drive while taking narcotic pain medications., May Shower May shower in (days): 1 Call your doctor if your incision/area has: Continuous Slow Oozing, Sudden Increased Bleeding, Increased Pain/ Swelling, Increased Redness, Foul Smelling Discharge, Swelling at the incision site Call your doctor if you observe: Fever of 101 or Higher Suture Line Care: Avoid Pulling/Pushing, Avoid Pinching/Bending Allergies/Adverse Reactions: Allergies pneumococcal vaccine [From Pneumovax 23] Allergy (Verified 02/14/19 10:01) SWELLING AND REDNESS Medications to take at Discharge Amlodipine [Norvasc] 5 mg PO QHS 05/30/17 Glimepiride [Amaryl] 2 mg PO DAILY 05/30/17 Lisinopril [Zestril] 20 mg PO DAILY 05/30/17 metFORMIN HCl [Glucophage] 1,000 mg PO QHS 05/30/17 Primary Care Physician: Indira Tidwell MD [Primary Care Provider] - Test Results: Test results from this visit will be discussed in further detail at your follow- up appointment, if applicable. Please Follow Up With: Richard Fields MD When: please call to make an appointment.
--- NOTE | 2019-04-22 07:16 | PCM.DC.SUM ---
Discharge Date and Diagnosis Date of Admission: 04/18/19 Date of Discharge: 04/22/19 - Secondary Discharge Diagnosis Chronic Problems (Last Reviewed 11/20/17 @ 08:40 by Indira Barr) HTN (hypertension) (Chronic) Type 2 diabetes mellitus (Chronic) Hospital Course and Treatment Operations: - - Right robotic radical nephrectomy Procedures: None Summary of Care Provided: The patient is a 78 year old the fracture itself was complicated by complex vascular vasculature he did require 2 units of blood during the resection of the kidney, postoperatively he was stable but developed a postop ileus that took about 4 days to resolve, catheter was removed and a #1 and he was able to urinate he did require one straight cath to empty his bladder. We did advance his diet however he got distended developed an ileus and finally on postoperative day #5 he passed gas had a bowel movement in his belly was much softer he will go home today with stool softener pain medicine and instructions. - Physical Exam General: Alert, Oriented x3, Cooperative HEENT: Atraumatic, PERRLA, EOMI, Normocephalic Neck: Supple, No JVD, Negative Carotid Bruits Lungs: Clear to auscultation, Normal air movement Cardiovascular: Regular rate, No murmurs Abdomen: Bowel Sounds Present, Soft, Non Tender Extremities: No edema, Capillary Refill Less than 3 Seconds Skin: No rashes, No breakdown Musculoskeletal: No Tenderness to Palpation of Joints or Extremities Neurological: Cranial nerves II-XII grossly intact Psych/Mental Status: Normal Affect, Appropriate Vital Signs Temp Pulse Resp BP Pulse Ox 99.2 F H 81 18 125/68 H 96 04/22/19 02:47 04/22/19 02:47 04/22/19 02:47 04/22/19 02:47 04/22/19 02:47 Oxygen Flow Rate (L/min) 2 Oxygen Delivery Method Room Air Weight: 98.8 kg Body Mass Index (BMI) 29.5 Finger Stick Blood Glucose 252 Intake and Output for Last 24 Hours 04/20/19 04/21/19 04/22/19 23:59 23:59 23:59 Intake Total 620 / 620 2739 / 2739 Output Total 2300 / 2300 600 / 600 Balance -1680 / -1680 2139 / 2139 Laboratory Tests Past 24 Hrs 07/08/19 07/08/19 07:31 07:31 WBC 7.0 RBC 3.22 L Hgb 9.5 L Hct 29.7 L MCV 92.2 MCH 29.5 MCHC 32.0 RDW 15.7 H RDW Differential 53.4 H Plt Count 121 L MPV 9.5 Sodium 138 Potassium 3.9 Chloride 105 Carbon Dioxide 27.0 Anion Gap 6 BUN 17 Creatinine 1.30 Estim Creat Clear Calc 53.06 Est GFR (MDRD) Af Amer 69 Est GFR (MDRD) Non-Af 57 L BUN/Creatinine Ratio 13.1 Glucose 124 H Calcium 8.5 POC Glucose 04/22/19 04/21/19 04/21/19 06:32 21:35 17:49 POC Glucose 138 H 140 H 110 04/21/19 11:47 POC Glucose 128 H Discharge Diet: Light diet - advance as tolerated Discharge Activity: Return to Normal Activity, May not drive while taking narcotic pain medications., May Shower May shower in (days): 1 Call your doctor if your incision/area has: Continuous Slow Oozing, Sudden Increased Bleeding, Increased Pain/ Swelling, Increased Redness, Foul Smelling Discharge, Swelling at the incision site Call your doctor if you observe: Fever of 101 or Higher Suture Line Care: Avoid Pulling/Pushing, Avoid Pinching/Bending Home Medications: Medications to take at Discharge Amlodipine [Norvasc] 5 mg PO QHS 05/30/17 Glimepiride [Amaryl] 2 mg PO DAILY 05/30/17 Lisinopril [Zestril] 20 mg PO DAILY 05/30/17 metFORMIN HCl [Glucophage] 1,000 mg PO QHS 05/30/17 Primary Care Physician: Indira Tidwell MD [Primary Care Provider] - Please Follow Up With: Richard Fields MD When: please call to make an appointment. Medical Necessity - Tobacco Use Smoking Status: Former smoker Meaningful Use Info Meaningful Use Diagnoses (Choose all that apply): None applicable
[2019-04-22] MEDS: Lisinopril 20 MG Tablet PO (08:43)
[2019-04-22] MEDS: Glimepiride 2 MG Tablet PO (08:43)
[2019-04-22 09:02] VITALS: BP 130/76; PULSE 98; RESP 16; TEMP 36.8; O2SAT 98
== END 2019-04-22 09:00 | disposition home or self-care (01) | DRG 657 ==
LOC: ACINP 05:48 → MS3 08:55
PROVIDERS: Anesthesiology; Admitting Provider Urology; Family Provider Family Medicine; PCP Family Medicine; Referring Provider Urology; Visit Provider Urology
PROC: 0TT04ZZ Resection of Right Kidney, Percutaneous Endoscopic Approach (ICD-10-PCS; CPT 50546; principal; 2019-04-18 07:10)
DX: C64.1 Malignant neoplasm of right kidney, except renal pelvis (principal); K56.7 Ileus, unspecified; Z87.891 Personal history of nicotine dependence; I10 Essential (primary) hypertension; E11.9 Type 2 diabetes mellitus without complications; Z79.84 Long term (current) use of oral hypoglycemic drugs
CPT/HCPCS: 36415; 71046; 74176; 80048; 80053; 82962; 83036; 85025; 85027; 86850; 86900; 86920; 86922; 88307; 88331; J7030; J7120; P9016; A4216; J2405

== ENCOUNTER → 2019-05-01 10:41 | Outpatient (CLI) | payer MEDICARE, SELFPAY ==
[2019-04-18 06:00] VITALS: BMI 29.5
--- NOTE | 2019-05-01 10:55 | RAD_ITS ---
STUDY: X-RAY - PELVIS AND RIGHT HIP REASON FOR EXAM: Male, 78 years old. Right hip pain. TECHNIQUE: 3 views of the pelvis and hip. COMPARISON: None. FINDINGS: There is a non-specific bowel gas pattern. Normal visualized soft tissue structures. Normal bilateral iliac wings, sacroiliac joints and visualized sacrum. Normal bilateral superior and inferior pubic rami. Normal pubic symphysis. Normal bilateral ischial tuberosities. Normal visualized femoral head. Normal acetabulum. Normal hip joint. RAD/HIP, UNI W/ Pelvis 2-3 Views IMPRESSION: Normal x-ray examination of the pelvis and hip. Electronically Signed: Brain Obrien MD at 17:09 EDT , Service support ,
== END ==
PROVIDERS: Family Provider Family Medicine; PCP Family Medicine; Referring Provider Urology; Visit Provider Urology
DX: M25.551 Pain in right hip (principal)
CPT/HCPCS: 73502

== ENCOUNTER → 2019-08-21 15:49 | Outpatient (CLI) | payer MEDICARE, SELFPAY ==
[2019-04-18 06:00] VITALS: BMI 29.5
--- NOTE | 2019-08-21 15:55 | RAD_ITS ---
STUDY: X-RAY CHEST REASON FOR EXAM: Male, 78 years old. History of recent nephrectomy. TECHNIQUE: PA and lateral views of the chest. COMPARISON: 04/01/2019. FINDINGS: The lungs are clear and expanded. There is no demonstrated pleural abnormality. Normal size heart. Normal mediastinum and yevgeniy. Normal visualized pulmonary arteries. Normal visualized aortic arch and descending thoracic aorta. There are diffuse degenerative changes of the visualized thoracic spine. There is degenerative osteoarthritis of the bilateral shoulders. There is no demonstrated abnormality of the visualized soft tissue structures of the upper abdomen. RAD/Chest PA and Lateral IMPRESSION: No acute cardiopulmonary disease. Electronically Signed: Marie Farooq MD at 2:43 EST , Service support ,
[2019-08-21 17:47] LABS: Anion Gap 11 (5-15); BUN 24 mg/dL (7-18); Chloride 104 mmol/L (98-107); Creatinine, Serum 1.33 mg/dL (0.70-1.30); EST Glomerular Filtration Rate 56 mL/min (>60); Est Glom Filt Rate - Afr Amer 67 mL/min (>60); Glucose 97 mg/dL (74-106); PSA,Total- Diagnostic 1.21 ng/mL (0.0-4.0); Potassium 4.3 mmol/L (3.5-5.1); Sodium Level 139 mmol/L (136-145)
== END ==
PROVIDERS: Family Provider Family Medicine; PCP Family Medicine; Referring Provider Urology; Visit Provider Urology
DX: C64.9 Malignant neoplasm of unspecified kidney, except renal pelvis (principal); Z90.5 Acquired absence of kidney; C61 Malignant neoplasm of prostate
CPT/HCPCS: 36415; 71046; 80048; 84153

== ENCOUNTER → 2019-10-28 10:45 | Outpatient (CLI) | payer MEDICARE, SELFPAY ==
[2019-04-18 06:00] VITALS: BMI 29.5
[2019-10-28 12:33] LABS: Microalbumin:Creatinine Ratio 26.2 mg/g CRE (<30 mg/g CRE)
[2019-10-28 12:47] LABS: AST(SGOT) 27 U/L (15-37); Alanine Aminotransfer ALT/SGPT 40 U/L (16-61); Alkaline Phosphatase 54 U/L (45-117); Bilirubin, Direct 0.11 mg/dL (0.00-0.30); Cholesterol 174 mg/dL (200); High Density Lipoprotein 29 mg/dL; Triglycerides 428 mg/dL
== END ==
PROVIDERS: Family Provider Family Medicine; PCP Family Medicine; Referring Provider Family Medicine; Visit Provider Family Medicine
DX: E11.9 Type 2 diabetes mellitus without complications (principal)
CPT/HCPCS: 36415; 80061; 80076; 82043; 82570

== ENCOUNTER → 2019-11-22 10:46 | Outpatient (CLI) | payer MEDICARE, SELFPAY ==
[2019-04-18 06:00] VITALS: BMI 29.5
--- NOTE | 2019-11-22 11:05 | RAD_ITS ---
STUDY: X-RAY - RIGHT SHOULDER REASON FOR EXAM: Male, 79 years old. FELL TWO DAYS AGO, LANDED ON SHOULDER TECHNIQUE: 4 view(s) of the shoulder. COMPARISON: None. FINDINGS: There is mild degenerative arthrosis of the glenohumeral articulation. There is degenerative arthrosis of the acromioclavicular joint without inferior osseous spur formation. Normal acromion. Normal humeral head and visualized proximal humerus. The soft tissue structures are unremarkable. Normal visualized pulmonary apex. RAD/Shoulder min 2 Views IMPRESSION: No fracture or malalignment. Degenerative changes. Electronically Signed: Collin Aguilar MD ([place]) at 14:03 EST , Service support ,
== END ==
PROVIDERS: PCP Family Medicine; Referring Provider Family Medicine; Visit Provider Family Medicine
DX: S46.001A Unspecified injury of muscle(s) and tendon(s) of the rotator cuff of right shoulder, initial encounter (principal)
CPT/HCPCS: 73030

== ENCOUNTER 2019-12-25 12:30 | Outpatient (RCR) | payer MEDICARE, SELFPAY ==
[2019-04-18 06:00] VITALS: BMI 29.5
--- NOTE | 2019-11-28 10:35 | HP.PTEVAL ---
Patient's Visit Information YUKI HERNANDEZ is a 79 year old M referred to Physical Therapy by Yuki De León MD with a diagnosis of R shoulder pain, RC strain. Date of Evaluation: 11/28/19 Physical Therapist: Adan Henderson DPT, OCS, CSCS - Visit Plan Frequency: 1-2x /Week Duration: 2-4 Weeks Plan: 1-2x/week for 4 weeks for. R shoulder ROM and mobs as needed AAROM to AROM, PROM. R RC adn scap strength. Activitiy modification. RC and scap strength to HEP. Next visit if doing well with ROM progress to strength. If ROM not improving will need to increase frequency adn manual therapy/ROM ex. - Subjective Findings: Saw doctor a week ago due to shoulder pain. Could not move R arm. It hurt for a week after falling on the ice adn landing on R UE. Ice is the reason he fell. R shoulder pain immediately. Had some night pain prior but was otherwise OK. No other treatments. F/u with doctor in a few weeks. R arm is getting much better and can lift it now to head. Overall is 50% better. Reaching up to shelf is still an issue. Dressing is difficult to put on shirt coat. can pull pants up and shoes on. Reaching behind is OK. Basic ADLs agetting done but slower to put hearing aids in and hand onto head. shovelled snow yesterday withotu big difficulty. Sleep is interrupted after shovelling snow last night. - Pain R shoulder Pain Intensity (Out of 10): 1 Pain Intensity Range: 1, 10 Comment: lifting firewood - Objective Posture is forward head adn anterior shoulders blades. Tender to touch in supraspinatus area slightly. R scapular elbow and wrist ROM symmetrical adn without pain. Cervical AROM 40 rotation B and 30 ext without pain. L shoulder aROM elevation to 140 and ext rotation to 60. R shoulder flexion to 80, abduction to 130 both slow and painful. ext rotation to 30 initially and 50 after stretching. IR without difficulty. - HK, - neer. PROM to 140 flexiona dn abductionw ith very little pain R shoulder. - ext rotation lag test. slight positive R drop arm minimally. Reflexes 2/3 bi and tri B. Sensation B UE WNL to gross light touch. Strength 4/5 R ext rotationa dn IR with mod pain. flexion painful 3 and abd painful and 3+. Biceps and triceps adn wrist 4+. - Goals Goal 1:: Full flexion adn ext rotation R shoulder without hesitation or pain. Goal Time Frame: 2-4 Weeks Goal 2:: Patient feel 95% back to normal with shoulder Goal Time Frame: 2-4 Weeks Goal 3:: I approp HEP tominimize future problems. Goal Time Frame: 4-6 Weeks Goal 4:: Cut friewood and put on coat without pain. Goal Time Frame: 2-4 Weeks - Rehabilitation Potential Physical Therapy Diagnosis: R shoulder pain strain vs RCT. Rehabilitation Potential: Fair - Anticipated Interventions Patient/Client Instruction: Educate patient on: Condition, Plan of Care For the Purpose of:: To decrease pain, To increase ROM, To increase tolerance to activity/condition/position, To improve ability of physical actions for home/community/work/leisure Therapeutic Exercise to Include: Strength training, Postural training, Passive ROM, Active ROM, Scapular Strength/Stabilization For the Purpose of:: To decrease pain, To increase ROM, To increase tolerance to activity/condition/position, To improve ability of physical actions for home/community/work/leisure Manual Therapy Techniques to Include: Mobilization, Passive ROM For the Purpose of:: To increase ROM Cryotherapy (ice pack, ice massage): Yes For the Purpose of:: To decrease pain, To decrease swelling/inflammation Thank you for the opportunity to evaluate your patient. For Medicare and Medicare HMO plans, please review the plan of care and approve it. It will need to be FAXED BACK to us at [phone] for Medicare purposes. For Medicare only, by signing this I certify the plan of care. Please let me know if there are questions or concerns regarding this plan of care. Physician Signature: Date:
--- NOTE | 2019-12-25 12:48 | HP.PTDCSUM ---
HP - PT D/C Summary It has been my pleasure to treat YUKI HERNANDEZ referred by Yuki De León MD, with the diagnosis of R shoulder pain, RC strain for a total of 3 visit(s). Discharge Date: 12/25/19 Please see the following information for a summary of their discharge status. - Subjective Subjective: Slowly better. All the movement is back. All exercises going well but pulling out into ext rotation, still weak. Function is going OK, still cutting wood and starting chainsaw with two hands instead of one. Reaching out and lifting up is still tough. - Pain R shoulder Pain Intensity (Out of 10): 1 - Overall Improvement % Improvement: 75 - Objective Objective/Function: Full AROM without pain, ext rotation to 75 degreees but weak at 3+/5 vs 4+ int rotation. Weak also with flexion and abduction and painful arc with resistance. Function much improved adn near nromal with some minor activity modfiications. - Goals Goal 1:: Full flexion adn ext rotation R shoulder without hesitation or pain. Goal Progress: Goal Met Goal 2:: Patient feel 95% back to normal with shoulder Goal Progress: Progressing Goal 3:: I approp HEP tominimize future problems. Goal Progress: Goal Met Goal 4:: Cut friewood and put on coat without pain. Goal Progress: Goal Met - Plan Plan: Pt to cotninue via HEP and contact doctor if progress stagnates. D/C PT - D/C Information Discharge Comments: Pt to continue via HEP adn contact doctor if progress stagnates. If there are questions or concerns regarding this patient's physical therapy, please feel free to call me at [phone]. Thank you for the referral of this patient. Sincerely, Adan Henderson, DPT, OCS, CSCS
== END 2019-12-25 19:00 | disposition home or self-care (01) ==
LOC: PT 12:30
PROVIDERS: PCP Family Medicine; Referring Provider Family Medicine; Visit Provider Family Medicine
DX: S46.001D Unspecified injury of muscle(s) and tendon(s) of the rotator cuff of right shoulder, subsequent encounter (principal)
CPT/HCPCS: 97110; 97161

== ENCOUNTER → 2020-04-27 10:02 | Outpatient (CLI) | payer MEDICARE, SELFPAY ==
[2019-04-18 06:00] VITALS: BMI 29.5
[2020-04-27 10:34] LABS: Hematocrit 38.4 % (40-54); Hemoglobin 12.7 g/dL (13.0-16.5); Mean Corp Hgb Conc 33.1 g/dL (32-36); Mean Corpuscular Hgb 30.7 pg (27.0-32.0); Mean Corpuscular Volume 92.8 fL (80-94); Mean Platelet Vol. 10.7 fl (6.2-12.0); Platelet Count 128 K/mm3 (150-450); RBC Distribution Width CV 13.6 % (11.6-14.6); RBC Distribution Width SD 46.4 fl (35.1-43.9); Red Blood Count 4.14 M/mm3 (4.6-6.2); White Blood Count 5.2 K/mm3 (4.4-11.0)
[2020-04-27 11:02] LABS: Anion Gap 6 (5-15); BUN 19 mg/dL (7-18); BUN/Creat Ratio 14.6 RATIO (10-20); Calcium,Total 9.1 mg/dL (8.5-10.1); Chloride 105 mmol/L (98-107); EST Glomerular Filtration Rate 57 mL/min (>60); Est Glom Filt Rate - Afr Amer 69 mL/min (>60); Glucose 129 mg/dL (74-106); PSA,Total- Diagnostic 3.94 ng/mL (0.0-4.0); Potassium 4.2 mmol/L (3.5-5.1); Sodium Level 137 mmol/L (136-145)
== END ==
PROVIDERS: PCP Family Medicine; Referring Provider Urology; Visit Provider Urology
DX: C64.1 Malignant neoplasm of right kidney, except renal pelvis (principal); C61 Malignant neoplasm of prostate
CPT/HCPCS: 36415; 80048; 84153; 85027

== ENCOUNTER → 2020-05-19 14:31 | Outpatient (CLI) | payer MEDICARE, SELFPAY ==
[2019-04-18 06:00] VITALS: BMI 29.5
--- NOTE | 2020-05-19 14:39 | CT_ITS ---
STUDY: CT ABDOMEN AND PELVIS WITH CONTRAST REASON FOR EXAM: Male, 79 years old. KIDNEY CA RADIATION DOSAGE (If Supplied By Facility): CTDIvol = ( 19.17 ) mGy, DLP = ( 1966.92 ) mGycm TECHNIQUE: Transaxial images were obtained from the dome of the diaphragm to the symphysis pubis without oral contrast. IV 100mL Isovue-300 was administered. Sagittal and coronal images were reconstructed. Individualized dose optimization techniques were used for this CT. COMPARISON: 04/21/2019 FINDINGS: The visualized lung bases are unremarkable. The visualized portions of the heart are within normal limits. There is decreased attenuation of the liver consistent with steatosis. Normal gallbladder and extrahepatic biliary system. Normal spleen, there is a 1 cm accessory spleen. Normal pancreas. Normal bilateral adrenal glands. Right kidney has been previously removed. Left kidney shows no obstruction. There are cystic structures in the left kidney. Normal visualized stomach. Normal small intestine. There are multiple colonic diverticula consistent with diverticulosis. There is non-visualization of the appendix. There is diffuse atherosclerotic calcification of the abdominal aorta, without a demonstrated aneurysm. Normal inferior vena cava. Normal retroperitoneum. Diffuse bladder wall thickening without underlying mass lesion. Prostate is mildly enlarged and there is evidence of a prior TURP. Normal abdominal wall. There are diffuse degenerative changes of the visualized lumbar spine, and pelvis. CT/Abdomen/Pelvis W IV Cont ONLY IMPRESSION: History of previous right nephrectomy, no suspicious soft tissue mass in the right nephrectomy bed Low-density cystic lesions in the left kidney unchanged from previous MRI. No specific follow-up needed Diffuse bladder wall thickening likely due to bladder outlet issues there is evidence of previous TURP Prostate is mildly enlarged Colonic diverticula Electronically Signed: Geovanny Petty MD at 17:17 EDT , Service support ,
--- NOTE | 2020-05-19 14:39 | CT_ITS ---
STUDY: CT CHEST WITH CONTRAST REASON FOR EXAM: Male, 79 years old. KIDNEY CA RADIATION DOSAGE (If Supplied By Facility): CTDIvol = ( 19.17 ) mGy, DLP = ( 1966.92 ) mGycm TECHNIQUE: Transaxial imaging was performed following intravenous administration of IV 100mL Isovue-300. Multiplanar coronal and sagittal images were reformatted. Individualized dose optimization techniques were used for this CT. COMPARISON: Previous plain films FINDINGS: Lung windows show the lungs are normally expanded. There is no suspicious noncalcified mass or nodule. No organized infiltrate or groundglass opacifications. Soft tissue windows show a normal-appearing thyroid gland. No suspicious axillary, mediastinal, or perihilar adenopathy. Normal heart and pericardium. There are calcifications of the coronary arteries. Normal enhanced pulmonary arteries. Normal aorta arch and descending thoracic aorta. There are multi-level degenerative changes of the thoracic spine. Limited cuts to the upper abdomen show fatty infiltration of the liver. CT/Chest WITH Contrast IMPRESSION: No suspicious noncalcified mass or nodule No organizing infiltrate or acute pulmonary process No suspicious adenopathy Degenerative bony changes Electronically Signed: Geovanny Petty MD at 17:22 EDT , Service support ,
== END ==
PROVIDERS: PCP Family Medicine; Referring Provider Urology; Visit Provider Urology
DX: C64.1 Malignant neoplasm of right kidney, except renal pelvis (principal)
CPT/HCPCS: 71260; 74177; Q9967

== ENCOUNTER → 2021-01-19 11:06 | Outpatient (CLI) | payer MEDICARE, SELFPAY ==
[2019-04-18 06:00] VITALS: BMI 29.5
[2021-01-19 15:38] LABS: Hemoglobin A1c 6.7 % (3.8-5.6)
[2021-01-19 15:52] LABS: AST(SGOT) 24 U/L (15-37); Alanine Aminotransfer ALT/SGPT 32 U/L (16-61); Albumin, Serum 4.4 g/dL (3.2-5.0); Alkaline Phosphatase 62 U/L (45-117); Anion Gap 7 (5-15); BUN 24 mg/dL (7-18); BUN/Creat Ratio 16.4 RATIO (10-20); Bilirubin, Direct 0.16 mg/dL (0.00-0.30); Calcium,Total 9.4 mg/dL (8.5-10.1); Chloride 105 mmol/L (98-107); Cholesterol 187 mg/dL (200); Creatinine, Serum 1.46 mg/dL (0.70-1.30); EST Glomerular Filtration Rate 50 mL/min (>60); Est Glom Filt Rate - Afr Amer 60 mL/min (>60); Globulin 4.2 g/dL (2.2-4.2); Glucose 137 mg/dL (74-106); High Density Lipoprotein 32 mg/dL; Potassium 4.6 mmol/L (3.5-5.1); Protein, Total 8.6 g/dL (6.4-8.2); Sodium Level 135 mmol/L (136-145); Triglycerides 393 mg/dL; Very Low Density Lipoprotein 79 mg/dL (5-40)
[2021-01-19 16:01] LABS: Microalbumin,Random Urine 9.7 mg/L (NO RANGE EST.); Microalbumin:Creatinine Ratio 33.8 mg/g CRE (<30 mg/g CRE)
== END ==
PROVIDERS: PCP Family Medicine; Referring Provider Family Medicine; Visit Provider Family Medicine
DX: E11.9 Type 2 diabetes mellitus without complications (principal)
CPT/HCPCS: 36415; 80048; 80061; 80076; 82043; 82570; 83036

== ENCOUNTER → 2021-01-25 10:56 | Outpatient (CLI) | payer MEDICARE, SELFPAY ==
[2019-04-18 06:00] VITALS: BMI 29.5
--- NOTE | 2021-01-25 11:06 | RAD_ITS ---
STUDY: X-RAY CHEST REASON FOR EXAM: Male, 80 years old. MALIGNANT NEOPLASM OF R Kidney, except RENAL PELVIS TECHNIQUE: PA and lateral views of the chest. COMPARISON: Comparison is made with prior examination dated 08/21/2019. FINDINGS: The lungs are clear and expanded. There is no demonstrated pleural abnormality. Normal size heart. Normal mediastinum and yevgeniy. Normal visualized pulmonary arteries. There is atherosclerotic calcification of the aortic arch with tortuosity. There are diffuse degenerative changes of the visualized thoracic spine. Normal visualized ribs, clavicles, and shoulders. There is no demonstrated abnormality of the visualized soft tissue structures of the upper abdomen. RAD/Chest PA and Lateral IMPRESSION: No acute abnormality is seen. Stable examination. Electronically Signed: Darnell Novoa MD at 12:41 EDT , Service support ,
[2021-01-25 12:10] LABS: PSA,Total- Diagnostic 2.92 ng/mL (0.0-4.0)
== END ==
PROVIDERS: PCP Family Medicine; Referring Provider Urology; Visit Provider Urology
DX: C61 Malignant neoplasm of prostate (principal); C64.1 Malignant neoplasm of right kidney, except renal pelvis
CPT/HCPCS: 36415; 71046; 84153

== ENCOUNTER 2022-01-24 15:04 | Outpatient (CLI) | payer MEDICARE, SELFPAY ==
[2022-01-24 17:50] LABS: AST(SGOT) 25 U/L (15-37); Alanine Aminotransfer ALT/SGPT 31 U/L (16-61); Albumin, Serum 4.2 g/dL (3.2-5.0); Alkaline Phosphatase 54 U/L (45-117); Anion Gap 6 (5-15); BUN 27 mg/dL (7-18); BUN/Creat Ratio 20.3 RATIO (10-20); Calcium,Total 9.3 mg/dL (8.5-10.1); Chloride 106 mmol/L (98-107); Cholesterol 173 mg/dL (200); Creatinine, Serum 1.33 mg/dL (0.70-1.30); EST Glomerular Filtration Rate 55 mL/min (>60); Est Glom Filt Rate - Afr Amer 67 mL/min (>60); Globulin 3.6 g/dL (2.2-4.2); Glucose 103 mg/dL (74-106); High Density Lipoprotein 28 mg/dL; Potassium 4.4 mmol/L (3.5-5.1); Protein, Total 7.8 g/dL (6.4-8.2); Sodium Level 138 mmol/L (136-145); Triglycerides 331 mg/dL; Very Low Density Lipoprotein 66 mg/dL (5-40)
== END 2022-01-24 23:59 | disposition home or self-care (01) ==
LOC: MFPLAB 15:05
PROVIDERS: PCP Family Medicine; Referring Provider Family Medicine; Visit Provider Family Medicine
DX: E11.9 Type 2 diabetes mellitus without complications (principal)
CPT/HCPCS: 36415; 80048; 80061; 80076

== ENCOUNTER 2022-01-27 07:28 | Outpatient (CLI) | payer MEDICARE, SELFPAY ==
--- NOTE | 2022-01-27 07:35 | CT_ITS ---
STUDY: CT ABDOMEN AND PELVIS WITH CONTRAST REASON FOR EXAM: Male, 81 years old. MALIGNANT NEOPLASM OF PROSTATE. History renal cancer. Prior right nephrectomy. RADIATION DOSAGE (If Supplied By Facility): CTDIvol = ( 17.03 ) mGy, DLP = ( 1975.42 ) mGycm TECHNIQUE: Transaxial images were obtained from the dome of the diaphragm to the symphysis pubis without oral contrast. IV 75mL Isovue-300 was administered. Sagittal and coronal images were reconstructed. Individualized dose optimization techniques were used for this CT. COMPARISON: Comparison is made with prior examination 05/19/2020. FINDINGS: The visualized lung bases are unremarkable. Coronary artery calcification. There is decreased attenuation of the liver consistent with steatosis. Normal gallbladder and extrahepatic biliary system. Normal spleen. Normal pancreas. Normal bilateral adrenal glands. The patient is status post right nephrectomy. Stable 1.4 cm cyst in the posterior medial aspect of the left kidney. A retroaortic left renal vein is seen. Normal visualized stomach. Normal small intestine. There are multiple colonic diverticula consistent with diverticulosis. There is non-visualization of the appendix. There is scattered atherosclerotic calcification of the abdominal aorta, without a demonstrated aneurysm. Normal inferior vena cava. Normal retroperitoneum. Diffusely thickened urinary bladder wall with trabeculations. There is enlargement of the prostate gland. It measures 4.4 cm x 6.6 cm. This causes indentation of the bladder base. Prior TURP. Small bilateral inguinal hernias containing fat more prominent on the left side. There are diffuse degenerative changes of the visualized lumbar spine. CT/Abdomen/Pelvis WITH Contrast IMPRESSION: Fatty infiltration of the liver. Prior right nephrectomy. Diffusely thickened urinary bladder wall. Electronically Signed: Darnell Novoa MD at 8:53 EDT ,
[2022-01-27 07:51] LABS: CREATININE FINGERSTICK 1.6 mg/dL (0.70-1.30)
== END 2022-01-27 23:59 | disposition home or self-care (01) ==
LOC: CT 07:33
PROVIDERS: PCP Family Medicine; Referring Provider Urology; Visit Provider Urology
DX: C61 Malignant neoplasm of prostate (principal)
CPT/HCPCS: 74177; Q9967

== ENCOUNTER → 2022-02-06 | Outpatient (CLI) | payer MEDICARE, SELFPAY ==
[2022-02-06 12:21] LABS: PSA,Total- Diagnostic 2.25 ng/mL (0.0-4.0)
== END | disposition home or self-care (01) ==
LOC: LAB 11:20
PROVIDERS: PCP Family Medicine; Referring Provider Urology; Visit Provider Urology
DX: C61 Malignant neoplasm of prostate (principal)
CPT/HCPCS: 36415; 84153

== ENCOUNTER → 2023-02-08 | Outpatient (CLI) | payer MEDICARE, SELFPAY ==
--- NOTE | 2023-02-08 10:50 | RAD_ITS ---
STUDY: X-RAY CHEST REASON FOR EXAM: Male, 82 years old. MALIGNANT NEOPLASM OF RIGHT KIDNEY TECHNIQUE: PA and lateral views of the chest. COMPARISON: Comparison is made with prior study dated January 25, 2021. FINDINGS: Stable elevation of the right hemidiaphragm. There is no demonstrated pleural abnormality. Normal size heart. Normal mediastinum and yevgeniy. Normal visualized pulmonary arteries. There is atherosclerotic calcification of the aortic arch with tortuosity. There are diffuse degenerative changes of the visualized thoracic spine. Normal visualized ribs, clavicles, and shoulders. There is no demonstrated abnormality of the visualized soft tissue structures of the upper abdomen. RAD/Chest PA and Lateral IMPRESSION: Stable examination. No acute abnormality is seen. Electronically Signed: Darnell Novoa MD at 12:40 EDT ,
[2023-02-08 11:29] LABS: Hematocrit 41.4 % (40-54); Hemoglobin 13.2 g/dL (13.0-16.5); Mean Corp Hgb Conc 31.9 g/dL (32-36); Mean Corpuscular Hgb 30.1 pg (27.0-32.0); Mean Corpuscular Volume 94.5 fL (80-94); Mean Platelet Vol. 11.1 fl (6.2-12.0); Platelet Count 153 K/mm3 (150-450); RBC Distribution Width CV 13.8 % (11.6-14.6); RBC Distribution Width SD 48.2 fl (35.1-43.9); Red Blood Count 4.38 M/mm3 (4.6-6.2); White Blood Count 5.6 K/mm3 (4.4-11.0)
[2023-02-08 11:55] LABS: Anion Gap 5 (5-15); BUN 17 mg/dL (7-18); Calcium,Total 9.4 mg/dL (8.5-10.1); Chloride 105 mmol/L (98-107); Creatinine, Serum 1.31 mg/dL (0.70-1.30); EST Glomerular Filtration Rate 56 mL/min (>60); Est Glom Filt Rate - Afr Amer 68 mL/min (>60); Glucose 150 mg/dL (74-106); PSA,Total- Diagnostic 2.87 ng/mL (0.0-4.0); Potassium 4.4 mmol/L (3.5-5.1); Sodium Level 136 mmol/L (136-145)
== END | disposition home or self-care (01) ==
PROVIDERS: PCP Family Medicine; Referring Provider Urology; Visit Provider Urology
DX: C64.1 Malignant neoplasm of right kidney, except renal pelvis (principal); C61 Malignant neoplasm of prostate
CPT/HCPCS: 36415; 71046; 80048; 84153; 85027

== ENCOUNTER → 2023-02-27 | Outpatient (CLI) | payer MEDICARE, SELFPAY ==
[2023-02-27 16:18] LABS: AST(SGOT) 23 U/L (15-37); Alanine Aminotransfer ALT/SGPT 26 U/L (16-61); Albumin, Serum 4.3 g/dL (3.2-5.0); Alkaline Phosphatase 63 U/L (45-117); Bilirubin, Direct 0.13 mg/dL (0.00-0.30); Cholesterol 171 mg/dL (200); Globulin 4.1 g/dL (2.2-4.2); High Density Lipoprotein 29 mg/dL; Protein, Total 8.4 g/dL (6.4-8.2); Triglycerides 453 mg/dL
== END | disposition home or self-care (01) ==
LOC: MFPLAB 11:22
PROVIDERS: PCP Family Medicine; Visit Provider Family Medicine
DX: E11.9 Type 2 diabetes mellitus without complications (principal)
CPT/HCPCS: 36415; 80061; 80076

== ENCOUNTER → 2023-08-23 | Outpatient (CLI) | payer MEDICARE, SELFPAY ==
[2023-08-23 12:26] LABS: Uric Acid 7.1 mg/dL (3.5-7.2)
== END | disposition home or self-care (01) ==
LOC: MFPLAB 09:40
PROVIDERS: PCP Family Medicine; Visit Provider Family Medicine
DX: M79.672 Pain in left foot (principal)
CPT/HCPCS: 36415; 84550

== ENCOUNTER → 2024-01-22 | Outpatient (CLI) | payer MEDICARE, SELFPAY ==
--- NOTE | 2024-01-22 13:43 | CT_ITS ---
STUDY: CT ABDOMEN AND PELVIS WITHOUT CONTRAST REASON FOR EXAM: Male, 83 years old. GROSS HEMATURIA. Prior right nephrectomy for renal carcinoma. History of prostate cancer with partial removal. RADIATION DOSAGE (If Supplied By Facility): CTDIvol = ( 12.78 ) mGy, DLP = ( 727.91 ) mGycm TECHNIQUE: Transaxial images were obtained from the dome of the diaphragm to the symphysis pubis without oral contrast, and without intravenous contrast. Sagittal and coronal images were reconstructed. Individualized dose optimization techniques were used for this CT. COMPARISON: Comparison is made with prior study dated January 27, 2022. FINDINGS: The visualized lung bases are unremarkable. The visualized portions of the heart are within normal limits. Normal liver. Findings suggestive of sludge or layering gallstones along the dependent portion of the gallbladder lumen. Normal spleen. Normal pancreas. Normal bilateral adrenal glands. The patient is status post right nephrectomy. Stable 1.4 cm hypodense nodule along the inferior medial aspect of the left kidney. This was demonstrated to be a cyst on prior enhanced CT scan of the abdomen. A retroaortic left renal vein is once again seen. Normal visualized stomach. Normal small intestine. There are multiple colonic diverticula consistent with diverticulosis. The appendix is visualized and appears normal. There is scattered atherosclerotic calcification of the abdominal aorta, without a demonstrated aneurysm. Normal inferior vena cava. Normal retroperitoneum. There is a 1.9 cm x 1.3 cm polypoid mass arises from the left lateral wall of the urinary bladder. There is a mild degree of diffuse bladder wall thickening. There is enlargement of the prostate gland. The prostate measures 4.7 cm x 6.6 cm. There is evidence of a prior TURP. There is a left-sided inguinal hernia containing adipose tissue. There are diffuse degenerative changes of the visualized lumbar spine. CT/Abdomen/Pelvis without Cont IMPRESSION: 1.9 cm x 1.3 cm polypoid lesion arising from the left lateral bladder wall. A neoplastic process should BE ruled out. Diffuse bladder wall thickening. Sigmoid diverticulosis. Status post right nephrectomy. Sludge or tiny gallstones seen along the dependent portion of the gallbladder lumen. Prostatic enlargement with indentation of the bladder base. Electronically Signed: Darnell Novoa MD at 14:42 EDT ,
== END | disposition home or self-care (01) ==
LOC: CT 13:42
PROVIDERS: PCP Family Medicine; Referring Provider Urology; Visit Provider Urology
DX: R31.0 Gross hematuria (principal)
CPT/HCPCS: 74176

== ENCOUNTER → 2024-02-04 | Outpatient (CLI) | payer MEDICARE, SELFPAY | END | disposition home or self-care (01) | LOC: LABSPEC 15:59 | PROVIDERS: PCP Family Medicine; Referring Provider Urology; Visit Provider Urology | DX: R30.0 Dysuria (principal) | CPT/HCPCS: 87077; 87086; 87088 ==

== ENCOUNTER 2024-02-22 08:43 | Day surgery (SDC) | payer MEDICARE, SELFPAY ==
--- NOTE | 2024-02-14 10:18 | EKG12_ITS ---
Test Reason : PREOP Blood Pressure : / mmHG Vent. Rate : 084 BPM Atrial Rate : 084 BPM P-R Int : 152 ms QRS Dur : 092 ms QT Int : 354 ms P-R-T Axes : 046 024 059 degrees QTc Int : 418 ms Normal sinus rhythm Normal ECG Confirmed by ASHLEY ROACH, NAKIA ([id number]), editor house organ CAROLYN GENTILE ([id number]) on 02/15/2024 9:44:43 AM Referred By: Richard Fields Confirmed By:NAKIA RAMIREZ MD
[2024-02-14 11:00] LABS: Hematocrit 36.8 % (40-54); Hemoglobin 11.9 g/dL (13.0-16.5); Mean Corp Hgb Conc 32.3 g/dL (32-36); Mean Corpuscular Hgb 28.8 pg (27.0-32.0); Mean Corpuscular Volume 89.1 fL (80-94); Mean Platelet Vol. 10.4 fl (6.2-12.0); Platelet Count 165 K/mm3 (150-450); RBC Distribution Width CV 14.6 % (11.6-14.6); RBC Distribution Width SD 47.9 fl (35.1-43.9); Red Blood Count 4.13 M/mm3 (4.6-6.2); White Blood Count 8.3 K/mm3 (4.4-11.0)
[2024-02-14 11:20] LABS: Anion Gap 4 (5-15); BUN 28 mg/dL (7-18); BUN/Creat Ratio 21.1 RATIO (10-20); Calcium,Total 9.5 mg/dL (8.5-10.1); Chloride 107 mmol/L (98-107); Creatinine, Serum 1.33 mg/dL (0.70-1.30); EST Glomerular Filtration Rate 55 mL/min (>60); Est Glom Filt Rate - Afr Amer 66 mL/min (>60); Glucose 150 mg/dL (74-106); Potassium 4.4 mmol/L (3.5-5.1); Sodium Level 136 mmol/L (136-145)
[2024-02-14 11:28] LABS: Hemoglobin A1c 7.2 % (3.8-5.6)
[2024-02-22] VITALS (10 sets, daily range): BP systolic 102–138; BP diastolic 60–81; PULSE 56–96; RESP 12–17; TEMP 36.1–36.4; O2SAT 97–100; BMI 28.2
[2024-02-22] MEDS: Lactated Ringers 1,000 ML 15 ML IV (09:21)
[2024-02-22 10:13] LABS: Bedside Glucose 152 mg/dL (74-106)
[2024-02-22] MEDS: Cefazolin 2 GM in 0.9% Normal Saline (100mL Bag) 100 ML IV (11:00)
--- NOTE | 2024-02-22 11:05 | BLB_PTH ---
PATIENT: YUKI HERNANDEZ LOC: [facility] [place] U#:[id number] AGE/SX: 83/M ROOM: RE02/22/[address]: Dr. Richard Fields MD : 1940 BED: DIS: 02/22/2024 SPEC #: [id number] RECD: 02/22/24 13:32 STATUS: LEXIS CARDOZO #: [id number] ZARA: 02/22/24 11:[address]: Richard Fields DEPT: SURGICAL PATHOLOGY RECD BY: Rhys Leonard ENTERED: 02/25/24 07:17 SP TYPE: TURB OTHR DR: Dr. 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 See cancer template below. 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 Additional pathologic findings: Extensive squamous differentiation. PATHOLOGIC STAGE: Tis Nx Mx The above summary is in compliance with [employer] (CAP) Cancer Protocols Checklist and [place] [employer] Committee on Cancer (AJCC), Staging Manual, 8th Ed. MICROSCOPIC DESCRIPTION Slides are reviewed. GROSS DESCRIPTION Received in fixative is one container labeled with the patient's name and designated Bladder tumor. The specimen consists of multiple irregular and friable fragments of white-light montoya soft tissue measuring in aggregate 5.0 x 3.0 x 0.2cm. The specimen is totally submitted in two cassettes. / 02/25/2024 TC:[address] [facility]:[id number]
[2024-02-22] MEDS: MitoMYcin 40 MG in Syringe 1 EACH 2400 MG INSTILLAT (11:33)
--- NOTE | 2024-02-22 11:38 | PCM.HP.STD ---
HPI - General General Date of Service: 02/22/24 Chief Complaint: Large bladder tumor HPI Narrative YUKI HERNANDEZ, is a 83 M who presents resection of a large bladder tumor and in the right anterior lateral wall PFS Medical History (Updated 02/12/24 @ 09:18 by Magalie Lopez) Alcohol use Arthritis Back pain Bladder disease Cancer Diabetes Dietary restriction Former smoker Gout Heartburn History of edema History of pain when walking Hx of basal cell carcinoma Hypertension Leg cramps Neuropathy Syncope Wears glasses Wears hearing aid Home Medications amlodipine 5 mg tablet 10 mg PO QHS BP 05/30/17 [History Last Taken 02/21/24] glimepiride 2 mg tablet 2 mg PO DAILY BLOOD GLUCOSE 05/30/17 [History Last Taken 02/21/24] lisinopril 20 mg tablet 20 mg PO DAILY BP 05/30/17 [History Last Taken 02/22/24] metformin 1,000 mg tablet 1,000 mg PO QHS BLOOD GLUCOSE 05/30/17 [History Last Taken 02/21/24] chlorthalidone 25 mg tablet 25 mg PO DAILY 02/12/24 [History Last Taken 02/21/24] tamsulosin 0.4 mg capsule 0.4 mg PO BID 02/12/24 [History Last Taken 02/22/24] ciprofloxacin HCl 500 mg tablet (Cipro) 500 mg PO BID #10 tabs 02/22/24 [Rx Last Taken Unknown] Allergy/AdvReac Type Severity Reaction Status Date / Time pneumococcal vaccine Allergy SWELLING Verified 02/22/24 09:11 [From Pneumovax 23] AND REDNESS Surgical History (Updated 02/12/24 @ 09:18 by Magalie Lopez) History of carpal tunnel surgery of left wrist History of carpal tunnel surgery of right wrist History of nephrectomy, right Hx of colonoscopy Hx of prostatectomy Hx of tonsillectomy Social History (Updated 11/20/17 @ 15:[address] Lynn Wheat, DO) Smoking Status: Former smoker Vital Signs Vital Signs Vital Signs: 02/22/24 09:05 02/22/24 09:05 Temperature 97.0 F L Temperature Source Temporal Pulse Rate 87 Respiratory Rate 12 Respiratory Pattern Normal Blood Pressure 114/66 Blood Pressure Mean 82 Blood Pressure Source Monitor Blood Pressure Position Semi-Fowlers Blood Pressure Location Right Arm Pulse Ox 100 Oxygen Delivery Method Room Air Weight Weight: 94.3 kg Body Mass Index (BMI) 28.2 Results Lab / Micro Data 02/14/24 10:30 02/14/24 10:30 Labs: Laboratory Results - last 24 hr 02/22/24 09:03: POC Glucose 152 H
--- NOTE | 2024-02-22 11:39 | DCINST_ITS ---
Discharge Instructions Diet Discharge Diet: No restrictions Activity Discharge Activity: Return to Normal Activity and May Not Drive (while taking narcotic pain medications.) Dressing / Incision Call your doctor if you observe: Fever of 101 or Higher Follow Up Care Please Follow Up With: Richard Fields MD When: Call [phone] for an appointment Test Results: Test results from this visit will be discussed in further detail at your follow- up appointment, if applicable. Discharge Plan Admission Primary Reason for Your Visit: bladder tumor Attending Provider: Richard Fields Primary Care Provider: Indira Tidwell Discharge Orders/Prescriptions Prescriptions: New ciprofloxacin HCl [Cipro] 500 mg tablet 500 mg PO BID Qty: 10 0RF Continued lisinopril 20 MG tablet 20 mg PO DAILY amlodipine 5 MG tablet 10 mg PO QHS glimepiride 2 MG tablet 2 mg PO DAILY metformin 1,000 MG tablet 1,000 mg PO QHS chlorthalidone 25 mg tablet 25 mg PO DAILY tamsulosin 0.4 mg capsule 0.4 mg PO BID Referrals / Follow Up: Indira Tidwell MD [Primary Care Provider] - Richard Fields MD [Med Staff - Active Staff] - Disposition Disposition (needs filled in before D/C Order can be placed): Home, Self Care
--- NOTE | 2024-02-22 11:39 | OP.PCM_ITS ---
Report of Operation Date of Procedure: 02/22/24 Pre-Operative Diagnosis: Large bladder tumor 5 x 5 cm in size in the right ante rior lateral wall wall Post-Operative Diagnosis: Same Surgery/Procedure Performed:: Transurethral section of bladder tumor and instillation Mitomycin-C Description of Surgical Findings:: Patient presented to the hospital for treatment of a tumor that was found in the bladder with a very large bladder tumor. Patient understands is possible it may not be able to resect the entire tumor. Patient also understands is possible that the patient may need multiple procedures or more invasive procedures to cure him of this cancer. Patient was taken back to the operating room after smooth induction of anesthesia the patient was placed supine on the table. The patient was placed in dorsolithotomy position. The urethra and genitals prepped and draped in usual sterile fashion. I went into the bladder with a 30 degree lens and a cystoscope was performed and identified the tumor the tumors which was about 5 centimeters in size and occupying mostly the lateral wall of the bladder. I then switched over to the 70 degree lens and inspected the rest of the bladder with a 70 degree lens to make sure there is no other tumors in the bladder and to identify all the tumor locations. The right and left ureteral orifice were identified. The tumor was not involved in the ureteral orifices. I then placed the Olympus bipolar resectoscope with a large loop into the bladder. I then started resected the tumor and started superficially shaving small little pieces working my way to the base of the tumor. As I went along I then cauterize any bleeders that were encountered during the resection. The tumor pieces were then flushed out of the bladder and continued resecting the tumor until finally I got down to the base of the tumor and the muscle of the bladder was then identified a small little bit of muscle was taken with the resection. The Ellik was used then to evacuate all the tumor pieces out of the bladder. I then cauterized extensively the tumor base and also circumferentially around where the tumor was. Again we made sure to evacuate all the pieces out the bladder. I made sure there was no more bleeding from the base of the bladder and then over the tumor pieces were then evacuated out and sent off as a specimen. After the resection of the entire tumor was completed then treatment with Mitomycin-C was performed. We then placed the catheter in the bladder and the patient was taken back to the PACU in stable condition. Surgeon: Richard Fields Type of Anesthesia: General Drains: campbell Estimated Blood Loss (mL): 0 Admit VTE Documentation VTE Present on Admission: No VTE Mechan Device Prophylaxis: SCD's VTE Pharm Prophylaxis ordered?: No
[2024-02-22] MEDS: Ketorolac 15 MG/ML Vial IV (11:59)
--- NOTE | 2024-02-22 12:44 | SUR.PHASEI ---
AT 12:15, SNELL CATHETER UNCLAMPED. MITOMYCIN C WAS INSTILLED INTO BLADDER IN OR VIA SNELL CATHETER; SNELL WAS CLAMPED FOR APPROXIMATELY 30 MIN AND THEN CLAMPED. SNELL DRAINED LAVENDER COLORED URINE. SNELL CATHETER REMOVED INTACT AT 12:40.
[2024-02-22 12:55] LABS: Bedside Glucose 123 mg/dL (74-106)
== END 2024-02-22 18:14 | disposition home or self-care (01) ==
LOC: SDC 08:43 → AC 08:44
PROVIDERS: Anesthesiology; PCP Family Medicine; Referring Provider Urology; Visit Provider Urology
PROC: 0T5B8ZZ Destruction of Bladder, Via Natural or Artificial Opening Endoscopic (ICD-10-PCS; CPT 51720; principal; 2024-02-22 10:55)
DX: C67.9 Malignant neoplasm of bladder, unspecified (principal); E11.40 Type 2 diabetes mellitus with diabetic neuropathy, unspecified; Z87.891 Personal history of nicotine dependence; I10 Essential (primary) hypertension; Z79.84 Long term (current) use of oral hypoglycemic drugs; Z85.828 Personal history of other malignant neoplasm of skin
CPT/HCPCS: 52240; 51720; 00912; 36415; 80048; 82962; 83036; 85027; 88307; 93005; J7120; J9280; J2405

== ENCOUNTER → 2024-09-01 | Outpatient (CLI) | payer MEDICARE, SELFPAY | END | disposition home or self-care (01) | LOC: MFPLAB 12:15 | PROVIDERS: PCP Family Medicine; Visit Provider Family Medicine | DX: K59.00 Constipation, unspecified (principal); E11.9 Type 2 diabetes mellitus without complications | CPT/HCPCS: 36415; 84443 ==

== ENCOUNTER → 2025-03-03 | Outpatient (CLI) | payer MEDICARE, SELFPAY ==
[2025-03-03 11:29] LABS: Microalbumin,Random Urine < 12.0 mg/L (NO RANGE EST.); Protein, Urine (Random) 9.4 mg/dL (0.0-12.0); Protein:Creat Ratio 104 mg/g CRE (0-200)
[2025-03-03 12:59] LABS: ALB/GLOB Ratio 1.2 RATIO (0.9-2.4); AST(SGOT) 22 U/L (<=37); Alanine Aminotransfer ALT/SGPT 12 U/L (<=46); Albumin, Serum 4.5 g/dL (3.4-4.8); Alkaline Phosphatase 67 U/L (40-129); Anion Gap 14 (5-15); BUN 26 mg/dL (4-19); BUN/Creat Ratio 21.3 RATIO (10-20); Calcium,Total 9.8 mg/dL (7.6-11.0); Carbon Dioxide 21.6 mmol/L (21.0-32.0); Chloride 101 mmol/L (98-108); Cholesterol 149 mg/dL (<=200); Creatinine, Serum 1.21 mg/dL (0.70-1.20); EST Glomerular Filtration Rate 60 (>60); Globulin 3.9 g/dL (2.2-4.2); Glucose 160 mg/dL (70-99); High Density Lipoprotein 27 mg/dL; Low Density Lipoprotein Calc. 92 mg/dL; Potassium 4.4 mmol/L (3.3-5.1); Protein, Total 8.4 g/dL (5.9-8.4); Sodium Level 136 mmol/L (133-145); Total Bilirubin 0.36 mg/dL (0.00-1.30); Triglycerides 149 mg/dL; Very Low Density Lipoprotein 30 mg/dL (5-40); cholesterol:hdl ratio screen 5.56
== END | disposition home or self-care (01) ==
LOC: MTLAB 09:22
PROVIDERS: PCP Family Medicine; Referring Provider Nurse Practitioner Family; Visit Provider Nurse Practitioner Family
DX: E11.59 Type 2 diabetes mellitus with other circulatory complications (principal); E03.9 Hypothyroidism, unspecified
CPT/HCPCS: 36415; 80053; 80061; 82043; 82570; 84156; 84443

== ENCOUNTER → 2025-06-12 | Outpatient (CLI) | payer MEDICARE, SELFPAY ==
[2025-06-12 15:15] LABS: Hematocrit 37.4 % (40-54); Hemoglobin 12.2 g/dL (13.0-16.5); Immature Granulocytes Count 0.250 X10^3/uL (0.0-0.0); Mean Corp Hgb Conc 32.6 g/dL (32-36); Mean Corpuscular Volume 90.1 fL (80-94); Mean Platelet Vol. 11.6 fl (6.2-12.0); NRBC Flagged by Analyzer 0 % (0-5); POSITIVE DIFFERENTIAL YES; Platelet Count 124 K/mm3 (150-450); RBC Distribution Width CV 14.2 % (11.6-14.6); RBC Distribution Width SD 46.8 fl (35.1-43.9); Red Blood Count 4.15 M/mm3 (4.6-6.2); White Blood Count 8.7 K/mm3 (4.4-11.0)
[2025-06-12 15:16] LABS: Differential Indicated SCAN CRITERIA MET
[2025-06-12 16:08] LABS: Creatinine, Urine (random) 55.30 mg/dL (39.00-259.00); Differential Comment SCANNED; Microalbumin,Random Urine 15.8 mg/L (<20 mg/L)
[2025-06-12 16:22] LABS: AST(SGOT) 19 U/L (<=37); Alanine Aminotransfer ALT/SGPT 13 U/L (<=46); Albumin, Serum 4.7 g/dL (3.4-4.8); Alkaline Phosphatase 64 U/L (40-129); Anion Gap 15 (5-15); BUN 21 mg/dL (4-19); BUN/Creat Ratio 15.5 RATIO (10-20); Calcium,Total 10.0 mg/dL (7.6-11.0); Carbon Dioxide 23.6 mmol/L (21.0-32.0); Chloride 98 mmol/L (98-108); Cholesterol 151 mg/dL (<=200); Globulin 3.6 g/dL (2.2-4.2); Glucose 167 mg/dL (70-99); Low Density Lipoprotein Calc. 80 mg/dL; Potassium 4.3 mmol/L (3.3-5.1); Triglycerides 201 mg/dL; Very Low Density Lipoprotein 40 mg/dL (5-40); cholesterol:hdl ratio screen 4.92
[2025-06-17 10:08] LABS: Thyroglobulin, Serum Qt. 3.1 ng/mL (1.4-29.2)
[2025-06-18 16:26] LABS: Ferritin 351 ng/mL (37-417); Iron 35 ug/dL (65-175); Iron Binding Capacity,Total 307 ug/dL (250-450); Iron Binding Capacity,Unsat 272 ug/dL (228-428)
== END | disposition home or self-care (01) ==
LOC: MFPLAB 11:11
PROVIDERS: PCP Family Medicine; Referring Provider Family Medicine; Visit Provider Family Medicine
DX: D64.9 Anemia, unspecified (principal); E11.9 Type 2 diabetes mellitus without complications; E03.9 Hypothyroidism, unspecified
CPT/HCPCS: 36415; 80053; 80061; 82043; 82570; 82728; 83036; 83540; 83550; 84432; 84439; 84443; 85025; 86376; 86800

== ENCOUNTER 2025-07-18 16:17 | Emergency (ER) | payer MEDICARE, SELFPAY ==
[2025-07-18 16:18] VITALS: BP 155/86; PULSE 99; RESP 16; TEMP 36.2; O2SAT 99; BMI 28.7
--- NOTE | 2025-07-18 18:09 | EX.ED.DYSGE1 ---
HPI History of Present Illness Chief Complaint: Burn Informant: patient and spouse/S.O. Onset/Context/Timing Onset: Today and Hours Context: Sudden Onset Timing: Continuous Current Severity: Mild Maximum Severity: Mild Narrative Narrative: 84-year-old male history of diabetes with diabetic neuropathies of his feet. He was cooking at boiling water and a pot accidentally spilled boiling water on the top of his left foot with first and secondary palacios to the top of his left foot and toes. He does have diabetic neuropathy so said the pain is not very bad. Prior similar symptoms: No Recent Illness/Hospitalization: No PFSH PFSH Medical History Wears hearing aid Wears glasses Cancer Gout Alcohol use Diabetes Arthritis Bladder disease Back pain Syncope Dietary restriction Heartburn Former smoker Leg cramps Neuropathy History of pain when walking History of edema Hypertension Hx of basal cell carcinoma Home Medications ?Medication ?Instructions ?Recorded ?Last Taken ?Type amlodipine 5 mg tablet 10 mg PO QHS BP 05/30/17 02/21/24 History glimepiride 2 mg tablet 2 mg PO DAILY BLOOD GLUCOSE 05/30/17 02/21/24 History lisinopril 20 mg tablet 20 mg PO DAILY BP 05/30/17 02/22/24 History metformin 1,000 mg tablet 1,000 mg PO QHS BLOOD GLUCOSE 05/30/17 02/21/24 History chlorthalidone 25 mg tablet 25 mg PO DAILY 02/12/24 02/21/24 History tamsulosin 0.4 mg capsule 0.4 mg PO BID 02/12/24 02/22/24 History ciprofloxacin HCl 500 mg tablet 500 mg PO BID #10 tabs 02/22/24 Unknown Rx (Cipro) Allergy/AdvReac Type Severity Reaction Status Date / Time pneumococcal vaccine (From Allergy SWELLING Verified 07/18/25 16:18 Pneumovax 23) AND REDNESS Surgical History Hx of tonsillectomy Hx of prostatectomy Hx of colonoscopy History of carpal tunnel surgery of right wrist History of carpal tunnel surgery of left wrist History of nephrectomy, right Social History Smoking Status: Former smoker ROS ROS ED ROS Narrative Denies recent illness. Constitutional Constitutional ED: Denies chills or fever(s) ENT ENT ED: Denies ear pain Cardiovascular Cardiovascular: Denies chest pain Respiratory/Chest Respiratory/Chest: Denies cough or dyspnea Gastrointestinal Gastrointestinal: Denies abdominal pain Genitourinary Genitourinary ED: Denies dysuria or hematuria Musculoskeletal Musculoskeletal: Denies arthralgias or back pain Integumentary Denies abscess Neurologic Neurologic: Denies headache(s) Psychiatric Psychiatric: Denies anxiety or depression Endocrine Endocrinology: Denies cold intolerance Hematologic/Lymphatic Hematologic/Lymphatic: Reports none Allergic/Immunologic Allergic/Immunologic ED: Denies mouth swelling, tongue swelling or urticaria EXAM Physical Exam Narrative Exam Narrative: 84-year-old male sitting upright in bed. Vital signs stable afebrile. No acute distress. at bedside. H EENT exam pupils round reactive light. Moist mucous membranes. Lungs clear. Heart regular rhythm no murmur. Chest wall ribs nontender. Abdomen soft nontender. Moving all 4 extremities. Normal strength. Normal range of motion. Top of his left foot near the MTP joints he has first-degree burn which is erythematous. Secondary palacios which are blistering. He is able to wiggle his toes. He does have touch sensation. Dorsi plantarflexion is intact. DP pulses intact. Patient is awake and alert. He has sensation in his feet is decreased from the neuropathies. Const Vital Signs: 07/18/25 16:18 Temperature 97.1 F L Temperature Source Temporal Pulse Rate 99 Respiratory Rate 16 Blood Pressure 155/86 H Blood Pressure Mean 109 Pulse Ox 99 Oxygen Delivery Method Room Air Positive well nourished and well developed; Negative for obese, cachectic, contractures or unkempt General Appearance ED: well developed and NAD; Negative for unkempt, cachectic, contractures, cyanotic, diaphoretic or pallor Nutritional Appearance: Negative for cachectic or obese HEENT Reports moist mucous membranes Eyes PERRL and EOMs intact bilaterally Neck no lymphadenopathy, supple and no JVD Chest Wall inspection of chest normal and palpation of chest normal Resp normal respiratory effort and clear to auscultation bilaterally Cardio regular rate, regular rhythm, S1 normal heart sound, S2 normal heart sound and no murmurs GI normal to inspection, nondistended, normoactive bowel sounds, non-tender, non-distended and no masses Auscultation: normoactive bowel sounds Palpation: soft; Negative for tender, guarding or rebound tenderness present Back/Spine no CVA tenderness Extremity Negative for normal to inspection Extremity Narrative: First and secondary palacios on the top of his left foot along the MTP joints of the toes. Minimal swelling. No infection. General Extremety ED: Yes edema General Extremity: edema Neuro oriented x3 and CN's II-XII intact bilaterally Sensorium / Orientation: alert Psych mental status grossly normal Appearance: Negative for unkempt Skin no rashes or lesions noted, No no wounds and skin turgor normal Skin Narrative: First and secondary palacios on the top of the left foot. General Skin Exam: Negative for jaundice or pallor Wounds: wounds noted MDM MDM MDM Narrative Medical decision making narrative: 84-year-old diabetic male diabetic neuropathy is first-degree palacios on top of his left foot that occurred about 4 hours ago at home with boiling water. Area be cleaned. Will apply antibiotic ointment. He was instructed home burn wound care. Discharge Plan Triage Chief Complaint: Burn ED Provider: Jack Nicole Dx/Rx/DC Orders Clinical Impression: Burn of foot, left, Type 2 diabetes mellitus, HTN (hypertension), Diabetic neuropathy Instructions: ED Burn, Hot Water Prescriptions: No Action lisinopril 20 MG tablet 20 mg PO DAILY amlodipine 5 MG tablet 10 mg PO QHS glimepiride 2 MG tablet 2 mg PO DAILY metformin 1,000 MG tablet 1,000 mg PO QHS chlorthalidone 25 mg tablet 25 mg PO DAILY tamsulosin 0.4 mg capsule 0.4 mg PO BID ciprofloxacin HCl [Cipro] 500 mg tablet 500 mg PO BID Qty: 10 0RF Primary Care Provider: Alberto Kilgore Referrals: Alberto Kilgore MD [Primary Care Provider, Family Practice] - As Needed Activity Restrictions/Additional Instructions: You have first and second-degree palacios to your left foot. Keep it clean. Apply antibiotic ointment daily. Watch for any signs of infection which would be swelling, a lot worse redness, streaks or fever. Typically these do not get infected. Cool compresses and elevation to decrease swelling. Tylenol Motrin for pain. Print Language: Croatian Disposition Disposition: Home, Self Care
--- OUTSIDE RECORDS SUMMARY | 2025-07-18 18:16 | XMS RPT_ITS | CCD ---
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 VIRK Attending Unavaila marie TIDWELL MD., DR. BETHEA Primary Care Unavailable Dr. Indira Tidwell Primary Care Provider Dr. Jose De Jesus Mejia Attending Provider Dr. Richard Fields Referring Provider Dr. Indira Tidwell MD Primary Care Provider Keila FELIPE-CMachelle Attending Provider [phone] Keila FELIPE-CMachelle Referring Provider [phone] Dr. Yuki Kilgore MD Primary Care Provider [phone] Dr. Yuki Kilgore MD Attending Provider Dr. Yuki Kilgore MD Referring Provider Indira Tidwell Primary Care Unavailable Indira Tidwell Attending Unavailable Machelle Pedraza NP Attending Unavailable Machelle Pedraza NP Referring Unavailable Indira Tidwell Primary Care Unavailable Yuki Kilgore Primary Care Unavailable Yuki Kilgore Attending Unavailable Yuki Kilgore Referring Unavailable Allergies Allergy Classification Reported Allergen(s) Allergy Type Date of Onset Reaction(s) Facility (10 sources) Pneumococcal vaccine Drug Allergy 9 SWELLING AND REDNESS [facility] (1 source) atorvastatin; Translations: [atorvastatin] Drug Allergy [facility] (1 source) Pneumococcal vaccine Drug Allergy 4 [facility] Repository Medications Current Medications Medication Drug Class(es) Dates Sig (Normalized) Sig (Original) amLODIPine 5 mg oral tablet (11 sources) Dihydropyridine Calcium Channel Oralia Start: 05-30-2017 take 2 tablets by mouth at bedtime Amlodipine 5 MG tablet Active 10 mg PO AT BEDTIME May 30, 2017 12:00am BP Start: 05-30-2017 take 10 mg by mouth at bedtime Amlodipine Active 10 MG PO AT BEDTIME May 30, 2017 12:00am Start: 07-30-2015 take 5 mg by mouth at bedtime Amlodipine Active 5 MG PO AT BEDTIME May 30, 2017 12:00am chlorthalidone 25 mg oral tablet (3 sources) Thiazide-like Diuretic Start: 02-12-2024 take 1 tablet by mouth once daily Chlorthalidone 25 mg tablet Active 25 mg PO DAILY February 12, 2024 12:00am ciprofloxacin 500 mg oral tablet (3 sources) Quinolone Antimicrobial Start: 02-22-2024 take 1 tablet by mouth twice daily Ciprofloxacin Hcl (Cipro) 500 mg tablet Active 500 mg PO TWICE A DAY February 22, 2024 12:00am glimepiride 2 mg oral tablet (20 sources) Sulfonylurea Start: 08-31-2016 take 1 tablet by mouth once daily Glimepiride 2 MG tablet Active 2 mg PO DAILY May 30, 2017 12:00am BLOOD GLUCOSE lisinopril 20 mg oral tablet (20 sources) Angiotensin Converting Enzyme Inhibitor Start: 07-30-2015 take 1 tablet by mouth once daily Lisinopril 20 MG tablet Active 20 mg PO DAILY May 30, 2017 12:00am BP metFORMIN hydrochloride 500 mg oral tablet (20 sources) Biguanide Start: 04-10-2022 MetFORMIN (Eqv-Glucophage XR) 500 mg oral tablet, EXTENDED RELEASE Dose : 500 mg = 1 tab(s), Oral, qDay, # 90 tab(s), 0 Refill(s) Start Date: 04/10/22 Status: Ordered Start: 08-31-2016 take 1 tablet by mouth at bedt justina Metformin 1,000 MG tablet Active 1000 mg PO AT BEDTIME May 30, 2017 12:00am BLOOD GLUCOSE tamsulosin hydrochloride 0.4 mg oral capsule (13 sources) alpha-Adrenergic Oralia Start: 02-12-2024 take 1 capsule by mouth twice daily Tamsulosin 0.4 mg capsule Active 0.4 mg PO TWICE A DAY February 12, 2024 12:00am Start: 02-07-2019 End: 02-14-2019 take 1 capsule by mouth once daily Tamsulosin 0.4 MG capsule Discontinued 0.4 mg PO DAILY 30 0 February 07, 2019 12:00am February 14, 2019 10:03am Completed/Discontinued Medications Medication Drug Class(es) Dates Sig (Normalized) Sig (Original) acetaminophen 325 mg / HYDROcodone bitartrate 10 mg oral tablet (10 sources) Opioid Agonist Start: 04-22-2019 End: 02-12-2024 Hydrocodone-Acetami nophen 1 EACH tablet Discontinued 1 NMA PO EVERY 4 HOURS NEEDED as needed for Pain 14 0 April 22, 2019 February 12, 2024 8:59am Abnormal radiologic findings on diagnostic imaging of right kidney Start: 04-22-2019 End: 02-12-2024 Hydrocodone-Acetaminophen Di scontinued 1 EACH PO EVERY 4 HOURS NEEDED 14 April 22, 2019 February 12, 2024 8:59am amLODIPine 5 mg / benazepril hydrochloride 10 mg oral capsule (12 sources) Dihydropyridine Calcium Channel Oralia, Angiotensin Converting Enzyme Inhibitor Start: 08-31-2016 take 1 tablet by mouth once daily, then take 5-10 tablets by mouth AMLODIPINE BESY-BENAZEPRIL HCL 5-10 MG CAPS One tablet by mouth daily AMLODIPINE BESY-BENAZEPRIL HCL [id number] Doron Massey docusate sodium 100 mg oral capsule (10 sources) Start: 04-22-2019 End: 02-12-2024 take 2 capsules by mouth twice daily Docusate Sodium 100 MG capsule Discontinued 200 mg PO TWICE A DAY 14 April 22, 2019 12:00am February 12, 2024 8:59am Start: 04-22-2019 End: 02-12-2024 take 200 mg by mouth twice daily Docusate Sodium Discontinued 200 MG PO TWICE A DAY April 22, 2019 12:00am February 12, 2024 8:59am Problems Active Problems Problem Classification Problem Date Documented Da te Episodic/Chronic Acute and unspecified renal failure (10 sources) Injury of kidney; Translations: [Acute kidney failure, unspecified] 02-08-2019 Episodic Deficiency and other anemia (1 source) Anemia, unspecified; Translations: [Anemia, unspecified] Onset: 06-19-2025 Episodic Diabetes mellitus with complications (1 source) Type 2 diabetes mellitus with other circulatory complications; Translations: [Type 2 diabetes mellitus with other circulatory complications] Onset: 03-10-2025 Chronic Diabetes mellitus without complication (10 sources) Type 2 diabetes mellitus; Translations: [Type 2 diabetes mellitus without complications] 02-21-2019 Chronic Essential hypertension (10 sources) Hypertensive disorder; Translations: [Essential (primary) hypertension] 02-21-2019 Chronic Hyperplasia of prostate (10 sources) Benign prostatic hypertrophy with outflow obstruction; Translations: [Benign prostatic hyperplasia with lower urinary tract symptoms] 02-08-2019 Chronic Other nervous system disorders (12 sources) Carpal tunnel syndrome; Translations: [Carpal tunnel syndrome, unspecified upper limb] Onset: 08-31-2016 08-31-2016 Chronic Unclassified (5 sources) Aftercare ; Translations: [Encounter for other orthopedic aftercare] Onset: 06-26-2017 06-26-2017 Past or Other Problems Problem Classification Problem Date Documented Da te Episodic/Chronic Other gastrointestinal disorders (1 source) Constipation, unspecified; Translations: [Constipation, unspecified] Onset: 10-02-2024 Episodic Other non-traumatic joint disorders (12 sources) Pain in wrist; Translations: [Pain in unspecified wrist] Onset: 08-31-2016 08-31-2016 Episodic Results Test Name Value Interpretation Reference Range Facility Ferritinon 06-18-2025 Ferritin [Mass/Vol] 351 ng/mL Normal 37-417 [facility] Comment on above: Order Comment: Order Date: 03/02/25 Order Info: [id number] - MIALB Performed By: #### L 500.4050, L501.9520, L500.4100, L502.0500 #### [facility] [address] [place], [address] Iron+Iron Binding Capacityon 06-18-2025 Iron [Mass/Vol] 35 ug/dL Low 65-175 [facility] Comment on above: Order Comment: Order Date: 03/02/25 Order Info: [id number] - MIALB Performed By: #### L 500.4050, L501.9520, L500.4100, L502.0500 #### [facility] [address] [place], [address] IRON SATURATION 11.0 Normal 9-55 [facility] Comment on above: Order Comment: Order Date: 03/02/25 Order Info: [id number] - MIALB Performed By: #### L 500.4050, L501.9520, L500.4100, L502.0500 #### [facility] [address] [place], [address] TIBC 307 ug/dL Normal 250-450 [facility] Comment on above: Order Comment: Order Date: 03/02/25 Order Info: [id number] - MIALB Performed By: #### L 500.4050, L501.9520, L500.4100, L502.0500 #### [facility] [address] [place], [address] UIBC 272 ug/dL Normal 228-428 [facility] Comment on above: Order Comment: Order Date: 03/02/25 Order Info: [id number] - MIALB Performed By: #### L 500.4050, L501.9520, L500.4100, L502.0500 #### [facility] [address] [place], [address] Thyroglobulin w/Anti-TG ABon 06-17-2025 Anti-TG AB < 1.0 Normal 0.0-0.9 [facility] Comment on above: Result Comment: Thyr oglobulin Antibody measured by [facility] It should be noted that the presence of thyroglobulin antibodies may not be pathogenic nor diagnostic, especially at very low levels. The assay step down specialist has found that four percent of individuals without evidence of thyroid disease or autoimmunity will have positive TgAb levels up to 4 IU/mL. Performed By: #### L 500.4050, L501.9520, L500.4100, L502.0500 #### [facility] [address] [place], [place], [id number] THYROGLOB QUANT 3.1 ng/mL Normal 1.4-29.2 [facility] Comment on above: Result Comment: Acco rding to the National Academy of Clinical Biochemistry, the reference interval for Thyroglobulin (TG) should be related to euthyroid patients and not for patients who underwent thyroidectomy. TG reference intervals for these patients depend on the residual mass of the thyroid tissue left after surgery. Establishing a post-operative baseline is recommended. The assay limit of quantitation is 0.1 ng/mL Thyroglobulin measured by [facility] Performed By: #### L 500.4050, L501.9520, L500.4100, L502.0500 #### [facility] [address] [place], [place], [id number] Thyroid Peroxidase ABon 090 THYR PEROX AB 11 IU/mL Normal 0-34 [facility] Comment on above: Result Comment: Perf ormed at: - [facility] [id number] Rn Family: Benigno Trejo PhD, Phone: [phone] Performed By: #### L 500.4050, L501.9520, L500.4100, L502.0500 #### [facility] [address] [place], [place], [id number] Absolute lymphocyte countOrd ered By: Yuki Kilgore on 06-12-2025 Lymphocytes Auto (Unsp spec) [#/Vol] 1.21 10*3/uL 0.83-4.51 [facility] Absolute neutrophil countOrd ered By: Yuki Kilgore on 06-12-2025 Neutrophils (Bld) [#/Vol] 4.4 10*3/uL 2.0-7.7 [facility] Anion gap in Serum or Plasma Ordered By: Yuki Kilgore on 06-12-2025 Anion gap [Moles/Vol] 15 mmol/L 5-15 [facility] Automated lymphocyte count a s percentage of total leukocytesOrdered By: Yuki Kilgore on 06-12-2025 Lymphocytes/100 WBC Auto (Unsp spec) 14.0 % Low 19-41 [facility] BUN/creatinine ratioOrdered By: Yuki Kilgore on 06-12-2025 Urea nitrogen/Creatinine [Mass ratio] 15.5 mg/mg 10-20 [facility] Basophil percentageOrdered B y: Yuki Kilgore on 06-12-2025 Basophils/100 WBC (Bld) 0.2 % 0-1 [facility] Bilirubin, totalOrdered By: Yuki Kilgore on 06-12-2025 Bilirubin [Mass/Vol] 0.40 mg/dL 0.00-1.30 [facility] Blood manual differential co mment interpretation (narrative result)Ordered By: Yuki Kilgore on 06-12-2025 Manual differential comment Lamin (Bld) [Interp] SCANNED [facility] CBC W/Diff, Automatedon 05-16 PLT EST SLT DEC Normal ADEQ [facility] Comment on above: Performed By: #### L 503.6550, L3300.6820, L3300.6900, L503.6030, L501.9520, L500.4100, L501.9985, L506.0400, L502.0250, L100.0100, L500.4050 #### [facility] [address] [place], [place], [phone] SMEAR COMMENT SCANNED Normal [facility] Comment on above: Performed By: #### L 503.6550, L3300.6820, L3300.6900, L503.6030, L501.9520, L500.4100, L501.9985, L506.0400, L502.0250, L100.0100, L500.4050 #### [facility] [address] [place], [place], [id number] Calculated very low density lipoprotein (VLDL) cholesterol measurementOrdered By: Yuki Kilgore on 06-12-2025 Calculated very low density lipoprotein (VLDL) cholesterol measurement 40 mg/dL 5-40 [facility] Carbon dioxide, total [Moles /volume] in Central venous bloodOrdered By: Yuki Kilgore on 06-12-2025 CO2 [Moles/Vol] 23.6 mmol/L 21.0-32.0 [facility] Chloride assayOrdered By: Silvia Kilgore on 06-12-2025 Chloride [Moles/Vol] 98 mmol/L 98-108 [facility] Comprehensive Metabolic Prof ilon 06-12-2025 Albumin [Mass/Vol] 4.7 g/dL Normal 3.4-4.8 [facility] Comment on above: Performed By: #### L 503.6550, L3300.6820, L3300.6900, L503.6030, L501.9520, L500.4100, L501.9985, L506.0400, L502.0250, L100.0100, L500.4050 #### [facility] [address] [place], [address] Albumin/Globulin [Mass ratio] 1.3 {ratio} Normal 0.9-2.4 [facility] Comment on above: Performed By: #### L 503.6550, L3300.6820, L3300.6900, L503.6030, L501.9520, L500.4100, L501.9985, L506.0400, L502.0250, L100.0100, L500.4050 #### [facility] [address] [place], [place], [id number] ALK PHOS 64 U/L Normal 40-129 [facility] Comment on above: Performed By: #### L 503.6550, L3300.6820, L3300.6900, L503.6030, L501.9520, L500.4100, L501.9985, L506.0400, L502.0250, L100.0100, L500.4050 #### [facility] [address] [place], [place], [phone] ALT [Catalytic activity/Vol] 13 U/L Normal <=46 [facility] Comment on above: Performed By: #### L 503.6550, L3300.6820, L3300.6900, L503.6030, L501.9520, L500.4100, L501.9985, L506.0400, L502.0250, L100.0100, L500.4050 #### [facility] [address] [place], [place], [phone] AST [Catalytic activity/Vol] 19 U/L Normal <=37 [facility] Comment on above: Performed By: #### L 503.6550, L3300.6820, L3300.6900, L503.6030, L501.9520, L500.4100, L501.9985, L506.0400, L502.0250, L100.0100, L500.4050 #### [facility] [address] [facility] [facility] [address] [place], [place], [id number] Bilirubin [Mass/Vol] 0.40 mg/dL Normal 0.00-1.30 [facility] Comment on above: Performed By: #### L 503.6550, L3300.6820, L3300.6900, L503.6030, L501.9520, L500.4100, L501.9985, L506.0400, L502.0250, L100.0100, L500.4050 #### [facility] [address] [place], [place], [phone] BUN/CRE 15.5 RATIO Normal 10-20 [facility] Comment on above: Performed By: #### L 503.6550, L3300.6820, L3300.6900, L503.6030, L501.9520, L500.4100, L501.9985, L506.0400, L502.0250, L100.0100, L500.4050 #### [facility] [address] [place], [address] Calcium [Mass/Vol] 10.0 mg/dL Normal 7.6-11.0 [facility] Comment on above: Performed By: #### L 503.6550, L3300.6820, L3300.6900, L503.6030, L501.9520, L500.4100, L501.9985, L506.0400, L502.0250, L100.0100, L500.4050 #### [facility] [address] [place], [place], [phone] ([phone] Chloride [Moles/Vol] 98 mmol/L Normal 98-108 [facility] Comment on above: Performed By: #### L 503.6550, L3300.6820, L3300.6900, L503.6030, L501.9520, L500.4100, L501.9985, L506.0400, L502.0250, L100.0100, L500.4050 #### [facility] [address] [place], [address] CO2 [Moles/Vol] 23.6 mmol/L Normal 21.0-32.0 [facility] Comment on above: Performed By: #### L 503.6550, L3300.6820, L3300.6900, L503.6030, L501.9520, L500.4100, L501.9985, L506.0400, L502.0250, L100.0100, L500.4050 #### [facility] [address] [place], [place], [phone] (936) Creatinine [Mass/Vol] 1.32 mg/dL High 0.70-1.20 [facility] Comment on above: Performed By: #### L 503.6550, L3300.6820, L3300.6900, L503.6030, L501.9520, L500.4100, L501.9985, L506.0400, L502.0250, L100.0100, L500.4050 #### [facility] [address] [place], [place], [id number] GAP 15 Normal 5-15 [facility] Comment on above: Performed By: #### L 503.6550, L3300.6820, L3300.6900, L503.6030, L501.9520, L500.4100, L501.9985, L506.0400, L502.0250, L100.0100, L500.4050 #### [facility] [address] [place], [address] GFR/1.73 sq M.predicted among non-blacks MDRD (S/P/Bld) [Vol rate/Area] 54 mL/min/{1.73_m2} Low >60 [facility] Comment on above: Result Comment: mL/m in/1.73m2 CKD-EPI Creatinine Equation (2020) Performed By: #### L 503.6550, L3300.6820, L3300.6900, L503.6030, L501.9520, L500.4100, L501.9985, L506.0400, L502.0250, L100.0100, L500.4050 #### [facility] [address] [place], [address] Globulin (S) [Mass/Vol] 3.6 g/dL Normal 2.2-4.2 [facility] Comment on above: Performed By: #### L 503.6550, L3300.6820, L3300.6900, L503.6030, L501.9520, L500.4100, L501.9985, L506.0400, L502.0250, L100.0100, L500.4050 #### [facility] [address] [place], [address] Glucose [Mass/Vol] 167 mg/dL High 70-99 [facility] Comment on above: Performed By: #### L 503.6550, L3300.6820, L3300.6900, L503.6030, L501.9520, L500.4100, L501.9985, L506.0400, L502.0250, L100.0100, L500.4050 #### [facility] [address] [place], [address] Potassium [Moles/Vol] 4.3 mmol/L Normal 3.3-5.1 [facility] Comment on above: Performed By: #### L 503.6550, L3300.6820, L3300.6900, L503.6030, L501.9520, L500.4100, L501.9985, L506.0400, L502.0250, L100.0100, L500.4050 #### [facility] [address] [place], [address] Sodium [Moles/Vol] 137 mmol/L Normal 133-145 [facility] Comment on above: Performed By: #### L 503.6550, L3300.6820, L3300.6900, L503.6030, L501.9520, L500.4100, L501.9985, L506.0400, L502.0250, L100.0100, L500.4050 #### [facility] [address] [place], [address] T PROT 8.3 g/dL Normal 5.9-8.4 [facility] Comment on above: Performed By: #### L 503.6550, L3300.6820, L3300.6900, L503.6030, L501.9520, L500.4100, L501.9985, L506.0400, L502.0250, L100.0100, L500.4050 #### [facility] [address] [place], [place], [id number] Urea nitrogen [Mass/Vol] 21 mg/dL High 4-19 [facility] Comment on above: Performed By: #### L 503.6550, L3300.6820, L3300.6900, L503.6030, L501.9520, L500.4100, L501.9985, L506.0400, L502.0250, L100.0100, L500.4050 #### [facility] [address] [place], [place], [id number] Eosinophil percentageOrdered By: Yuki Kilgore on 06-12-2025 Eosinophils/100 WBC (Bld) 0.9 % 0-5 [facility] Erythrocyte distribution wid th ratioOrdered By: Yuki Kilgore on 06-12-2025 Erythrocyte distribution width (RBC) [Ratio] 14.2 % 11.6-14.6 [facility] Erythrocyte distribution wid th standard deviationOrdered By: Yuki Kilgore on 06-12-2025 Erythrocyte distribution width (RBC) [Ratio] 46.8 fl High 35.1-43.9 [facility] Glomerular filtration rate ( GFR) estimation/1.73 sq m using serum, plasma, or whole bOrdered By: Yuki Kilgore on 06-12-2025 GFR/1.73 sq M.predicted among non-blacks MDRD (S/P/Bld) [Vol rate/Area] 54 mL/min/{1.73_m2} Low >60 [facility] Comment on above: mL/min/1.73m2 CKD-EP I Creatinine Equation (2020) Hematocrit Auto (Bld) [Volum e fraction]Ordered By: Yuki Kilgore on 06-12-2025 Hematocrit (Bld) [Volume fraction] 37.4 % Low 40-54 [facility] Hemoglobin A1con 06-12-2025 HbA1c (Bld) [Mass fraction] 7.5 % High <=5.6 [facility] Comment on above: Result Comment: Norm al < 5.7 % Prediabetic 5.7 - 6.4 % Diabetic >or= 6.5 % Please note range changes. Performed By: #### L 503.6550, L3300.6820, L3300.6900, L503.6030, L501.9520, L500.4100, L501.9985, L506.0400, L502.0250, L100.0100, L500.4050 #### [facility] [address] [place], [address] Hemoglobin A1c percentageOrd ered By: Yuki Kilgore on 06-12-2025 HbA1c (Bld) [Mass fraction] 7.5 % High <5.7 [facility] Comment on above: Normal < 5.7 % Predi abetic 5.7 - 6.4 % Diabetic >or= 6.5 % Please note range changes. Hemoglobin measurementOrdere d By: Yuki Kilgore on 06-12-2025 Hemoglobin (Bld) [Mass/Vol] 12.2 g/dL Low 13.0-16.5 [facility] Immature granulocytes/100 WB C Auto (Bld)Ordered By: Yuki Kilgore on 06-12-2025 Immature granulocytes/100 WBC (Bld) 2.900 % High 0.0-0.9 [facility] Comment on above: IG% - Immature Granu locytes (promyelocytes, myelocytes and metamyelocytes) > 1% indicates that a LEFT SHIFT is Present. Iron measurement (mass/mass) Ordered By: Yuki Kilgore on 06-12-2025 Iron (Unsp spec) [Mass/Mass] 35 ug/dL Low 65-175 [facility] LDL calc ser/plasOrdered By: Yuki Kilgore on 06-12-2025 Cholesterol in LDL [Mass/Vol] 80 mg/dL [facility] Comment on above: Begbefeiom=570-278 m g/dL & Higher Mcci=479 mg/dL or greaterFriedwald Equation for LDL-C Laboratory - Chemistry and C hemistry - challengeOrdered By: Yuki Kilgore on 06-12-2025 AST [Catalytic activity/Vol] 19 U/L <38 [facility] Lipid Profileon 06-12-2025 CHOL:HDL 4.92 Normal [facility] Comment on above: Performed By: #### L 503.6550, L3300.6820, L3300.6900, L503.6030, L501.9520, L500.4100, L501.9985, L506.0400, L502.0250, L100.0100, L500.4050 #### [facility] [address] [place], [place], [phone] (324) Cholesterol [Mass/Vol] 151 mg/dL Normal <=200 [facility] Comment on above: Result Comment: Chol esterol level, Desirable <200 mg/dL Borderline high cholesterol 200-239 mg/dL High cholesterol >=240 mg/dL Recommendations of the NCEP Adult Treatment Panel for the following risk-cutoff thresholds for the [place] population. Performed By: #### L 503.6550, L3300.6820, L3300.6900, L503.6030, L501.9520, L500.4100, L501.9985, L506.0400, L502.0250, L100.0100, L500.4050 #### [facility] [address] [place], [address] (443) Cholesterol in HDL [Mass/Vol] 31 mg/dL Low [facility] Comment on above: Result Comment: Linda onal Cholesterol Education Program (NCEP) guidelines: <40 mg/dL: Low HDL-cholesterol (major risk factor for CHD) >= 60 mg/dL: High HDL-cholesterol (negative risk factor for CHD) HDL-cholesterol is affected by a number of factors, e.g. smoking, exercise, hormones, sex and age. Performed By: #### L 503.6550, L3300.6820, L3300.6900, L503.6030, L501.9520, L500.4100, L501.9985, L506.0400, L502.0250, L100.0100, L500.4050 #### [facility] [address] [place], [address] Cholesterol in LDL [Mass/Vol] 80 mg/dL Normal [facility] Comment on above: Result Comment: Bord yttwtk=607-309 mg/dL Higher Wktq=923 mg/dL or greater Friedwald Equation for LDL-C Performed By: #### L 503.6550, L3300.6820, L3300.6900, L503.6030, L501.9520, L500.4100, L501.9985, L506.0400, L502.0250, L100.0100, L500.4050 #### [facility] [address] [place], [address] Cholesterol in VLDL [Mass/Vol] 40 mg/dL Normal 5-40 [facility] Comment on above: Performed By: #### L 503.6550, L3300.6820, L3300.6900, L503.6030, L501.9520, L500.4100, L501.9985, L506.0400, L502.0250, L100.0100, L500.4050 #### [facility] [address] [place], [address] Triglyceride [Mass/Vol] 201 mg/dL High [facility] Comment on above: Result Comment: The drugs N-Acetylcysteine and Metamizole may falsely depress this assay. Normal range: <150 mg/dL Borderline High: 150-199 mg/dL High: 200-499 mg/dL Very High: >500 mg/dL Performed By: #### L 503.6550, L3300.6820, L3300.6900, L503.6030, L501.9520, L500.4100, L501.9985, L506.0400, L502.0250, L100.0100, L500.4050 #### [facility] [address] [place], [address] MCV (mean corpuscular volume ) determinationOrdered By: Yuki Kilgore on 06-12-2025 MCV (RBC) [Entitic vol] 90.1 fL 80-94 [facility] Mean corpuscular hemoglobin (MCH) determinationOrdered By: Yuki Kilgore on 06-12-2025 MCH (RBC) [Entitic mass] 29.4 pg 27.0-32.0 [facility] Mean corpuscular hemoglobin concentration (MCHC) determinationOrdered By: Yuki Kilgore on 06-12-2025 MCHC (RBC) [Mass/Vol] 32.6 g/dL 32-36 [facility] Mean platelet volume determi nationOrdered By: Yuki Kilgore on 06-12-2025 Platelet mean volume (Bld) [Entitic vol] 11.6 fL 6.2-12.0 [facility] Microalb:Creat Ratio,Random URon 06-12-2025 Creatinine [Mass/Vol] 55.30 mg/dL Normal 39.00-259.00 [facility] Comment on above: Performed By: #### L 503.6550, L3300.6820, L3300.6900, L503.6030, L501.9520, L500.4100, L501.9985, L506.0400, L502.0250, L100.0100, L500.4050 #### [facility] [address] [place], [address] MALB:CREAT 28.6 mg/g CRE Normal <30 mg/g CRE [facility] Comment on above: Performed By: #### L 503.6550, L3300.6820, L3300.6900, L503.6030, L501.9520, L500.4100, L501.9985, L506.0400, L502.0250, L100.0100, L500.4050 #### [facility] [address] [place], [address] MICROALBUMIN,UR 15.8 mg/L Normal <20 mg/L [facility] Comment on above: Performed By: #### L 503.6550, L3300.6820, L3300.6900, L503.6030, L501.9520, L500.4100, L501.9985, L506.0400, L502.0250, L100.0100, L500.4050 #### [facility] [address] [place], [address] Monocyte percentageOrdered B y: Yuki Kilgore on 06-12-2025 Monocytes/100 WBC (Bld) 30.7 % High 0-10 [facility] Neutrophil percentageOrdered By: Yuki Kilgore on 06-12-2025 Neutrophils/100 WBC (Bld) 51.3 % 47-70 [facility] No Panel InformationOrdered By: Yuki Kilgore on 06-12-2025 Unsaturated Iron Binding Capacity 272 ug/dL 228-428 [facility] Nucleated red blood cell per centageOrdered By: Yuki Kilgore on 06-12-2025 Nucleated RBC/100 WBC (Bld) [Ratio] 0 % 0-5 [facility] Platelet countOrdered By: Silvia Kilgore on 06-12-2025 Platelets (Bld) [#/Vol] 124 10*3/uL Low 150-450 [facility] Platelet estimateOrdered By: Yuki Kilgore on 06-12-2025 Platelets LM Ql (Bld) SLT DEC ADEQ [facility] Potassium measurement (mass/ volume)Ordered By: Yuki Kilgore on 06-12-2025 Potassium (Unsp spec) [Mass/Vol] 4.3 mmol/L 3.3-5.1 [facility] RBC Auto (Bld) [#/Vol]Ordere d By: Yuki Kilgore on 06-12-2025 RBC (Bld) [#/Vol] 4.15 10*6/uL Low 4.6-6.2 [facility] Random urine creatinine berkley urement (mass/volume)Ordered By: Yuki Kilgore on 06-12-2025 Creatinine Unsp time (U) [Mass/Vol] 55.30 mg/dL 39.00-259.00 [facility] Screening total cholesterol/ high density lipoprotein (HDL) cholesterol ratioOrdered By: Yuki Kilgore on 06-12-2025 Cholesterol.total/Nita sterol in HDL [Mass ratio] 4.92 {ratio} [facility] Serum creatinine measurement (mass/volume)Ordered By: Yuki Kilgore on 06-12-2025 Creatinine [Mass/Vol] 1.32 mg/dL High 0.70-1.20 [facility] Serum globulin measurementOr dered By: Yuki Kilgore on 06-12-2025 Globulin (S) [Mass/Vol] 3.6 g/dL 2.2-4.2 [facility] Serum glucose measurement (m ass/volume)Ordered By: Yuki Kilgore on 06-12-2025 Glucose [Mass/Vol] 167 mg/dL High 70-99 [facility] Serum or plasma alanine zabala otransferase (ALT) measurementOrdered By: Yuki Kilgore on 06-12-2025 ALT [Catalytic activity/Vol] 13 U/L <47 [facility] Serum or plasma albumin berkley urement (mass/volume)Ordered By: Yuki Kilgore on 06-12-2025 Albumin [Mass/Vol] 4.7 g/dL 3.4-4.8 [facility] Serum or plasma albumin/glob ulin mass ratioOrdered By: Yuki Kilgore on 06-12-2025 Albumin/Globulin [Mass ratio] 1.3 {ratio} 0.9-2.4 [facility] Serum or plasma alkaline jan sphatase measurementOrdered By: Yuki Kilgore on 06-12-2025 ALP [Catalytic activity/Vol] 64 U/L 40-129 [facility] Serum or plasma calcium berkley urement (mass/volume)Ordered By: Yuki Kilgore on 06-12-2025 Calcium [Mass/Vol] 10.0 mg/dL 7.6-11.0 [facility] Serum or plasma cholesterol in HDL measurement (mass/volume)Ordered By: Yuki Kilgore on 06-12-2025 Cholesterol in HDL [Mass/Vol] 31 mg/dL Low >40 [facility] Comment on above: National Cholesterol Education Program (NCEP) guidelines:<40 mg/dL: Low HDL-cholesterol (major risk factor for CHD)>= 60 mg/dL: High HDL-cholesterol (negative risk factor for CHD)HDL-cholesterol is affected by a number of factors, e.g. smoking, exercise, hormones, sex and age. Serum or plasma cholesterol measurement (mass/volume)Ordered By: Yuki Kilgore on 06-12-2025 Cholesterol [Mass/Vol] 151 mg/dL <201 [facility] Comment on above: Cholesterol level, D esirable <200 mg/dLBorderline high cholesterol 200-239 mg/dLHigh cholesterol >=240 mg/dLRecommendations of the NCEP Adult Treatment Panel for the following risk-cutoff thresholds for the [place] population. Serum or plasma ferritin eva surement (mass/volume)Ordered By: Yuki Kilgore on 06-12-2025 Ferritin [Mass/Vol] 351 ng/mL 37-417 [facility] Serum or plasma iron saturat ion measurement (mass fraction)Ordered By: Yuki Kilgore on 06-12-2025 Iron saturation [Mass fraction] 11.0 % 9-55 [facility] Serum or plasma thyroperoxid ase antibody assay (units/volume)Ordered By: Yuki Kilgore on 06-12-2025 TPO Ab Qn 11 [IU]/mL 0-34 [facility] Comment on above: Performed at: [address] Director: Benigno Trejo PhD, Phone: [phone] Serum or plasma urea nitroge n measurement (mass/volume)Ordered By: Yuki Kilgore on 06-12-2025 Urea nitrogen [Mass/Vol] 21 mg/dL High 4-19 [facility] Sodium levelOrdered By: Yuki Kilgore on 06-12-2025 Sodium [Moles/Vol] 137 mmol/L 133-145 [facility] T4 Free Directon 06-12-2025 T4 FREE DIRECT 1.70 ng/dL High 0.76-1.46 [facility] Comment on above: Performed By: #### L 500.7918, L501.8214, L500.9943, L502.2615 #### [facility] [address] [place], [address] T4 freeOrdered By: Yuki aviles on 06-12-2025 Free T4 [Mass/Vol] 1.70 ng/dL High 0.76-1.46 [facility] TSH DL <= 0.005 mIU/L QnOrde red By: Yuki Kilgore on 06-12-2025 TSH Qn 2.480 uIU/mL 0.300-4.200 [facility] Thyroid Stim Hormone (TSH)on 06-12-2025 TSH 2.480 uIU/mL Normal 0.300-4.200 [facility] Comment on above: Performed By: #### L 500.4050, L501.9520, L500.4100, L502.0500 #### [facility] [place], [address] Total proteinOrdered By: Nicho Kilgore on 06-12-2025 Protein [Mass/Vol] 8.3 g/dL 5.9-8.4 [facility] Triglycerides measurementOrd ered By: Yuki Kilgore on 06-12-2025 Triglyceride [Mass/Vol] 201 mg/dL High <199 [facility] Comment on above: The drugs N-Acetylcy steine and Metamizole may falsely depress this assay. Normal range: <150 mg/dLBorderline High: 150-199 mg/dLHigh: 200-499 mg/dLVery High: >500 mg/dL Urine albumin measurement wi detection limit of 20 mg/L or less (mass/volume)Ordered By: Yuki Kilgore on 06-12-2025 Albumin DL <= 20 mg/L (U) [Mass/Vol] 15.8 mg/L <20 mg/L [facility] White blood cell (WBC) count Ordered By: Yuki Kilgore on 06-12-2025 WBC (Bld) [#/Vol] 8.7 10*3/uL 4.4-11.0 [facility] Anion gap in Serum or Plasma Ordered By: Machelle Pedraza on 03-03-2025 Anion gap [Moles/Vol] 14 mmol/L 02-26 [facility] BUN/creatinine ratioOrdered By: Machelle Pedraza on 03-03-2025 Urea nitrogen/Creatinine [Mass ratio] 21.3 mg/mg High - [facility] Bilirubin, totalOrdered By: Machelle Pedraza on 03-03-2025 Bilirubin [Mass/Vol] 0.36 mg/dL 0.00-1.30 [facility] Calculated very low density lipoprotein (VLDL) cholesterol measurementOrdered By: Machelle Pedraza on 03-03-2025 Calculated very low density lipoprotein (VLDL) cholesterol measurement 30 mg/dL 5-40 [facility] Carbon dioxide, total [Moles /volume] in Central venous bloodOrdered By: Machelle Pedraza on 03-03-2025 CO2 [Moles/Vol] 21.6 mmol/L 21.0-32.0 [facility] Chloride assayOrdered By: Sandeep Pedraza on 03-03-2025 Chloride [Moles/Vol] 101 mmol/L 98-108 [facility] Comprehensive Metabolic Prof ilon 03-03-2025 Albumin [Mass/Vol] 4.5 g/dL Normal 3.4-4.8 [facility] Comment on above: Order Comment: Order Date: 03/02/25 Order Info: [id number] - CMP Order Info: [id number] - LIPID Order Info: [id number] - TSH Performed By: #### L 500.4050, L501.9520, L500.4100, L502.0500 #### [facility] [address] [facility]. [place], [place], [id number] Albumin/Globulin [Mass ratio] 1.2 {ratio} Normal 0.9-2.4 [facility] Comment on above: Order Comment: Order Date: 03/02/25 Order Info: [id number] - CMP Order Info: [id number] - LIPID Order Info: [id number] - TSH Performed By: #### L 500.4050, L501.9520, L500.4100, L502.0500 #### [facility] [address] [place], [place], [id number] ALK PHOS 67 U/L Normal 40-129 [facility] Comment on above: Order Comment: Order Date: 03/02/25 Order Info: [id number] - CMP Order Info: [id number] - LIPID Order Info: 3 - TSH Performed By: #### L 500.4050, L501.9520, L500.4100, L502.0500 #### [facility] [address] [place], [address] ALT [Catalytic activity/Vol] 12 U/L Normal <=46 [facility] Comment on above: Order Comment: Order Date: 03/02/25 Order Info: 0786- - CMP Order Info: [id number] - LIPID Order Info: [id number] - TSH Performed By: #### L 500.4050, L501.9520, L500.4100, L502.0500 #### [facility] [address] [place], [address] AST [Catalytic activity/Vol] 22 U/L Normal <=37 [facility] Comment on above: Order Comment: Order Date: 03/02/25 Order Info: [id number] - CMP Order Info: - LIPID Order Info: [id number] - TSH Performed By: #### L 500.4050, L501.9520, L500.4100, L502.0500 #### [facility] [address] [place], [place], [address] Bilirubin [Mass/Vol] 0.36 mg/dL Normal 0.00-1.30 [facility] Comment on above: Order Comment: Order Date: 03/02/25 Order Info: 07 - CMP Order Info: [id number] - LIPID Order Info: [id number] - TSH Performed By: #### L 500.4050, L501.9520, L500.4100, L502.0500 #### [facility] [address] [place], [address] BUN/CRE 21.3 RATIO High 10-20 [facility] Comment on above: Order Comment: Order Date: 03/02/25 Order Info: [id number] - CMP Order Info: [id number] - LIPID Order Info: [id number] - TSH Performed By: #### L 500.4050, L501.9520, L500.4100, L502.0500 #### [facility] [address] [place], [address] Calcium [Mass/Vol] 9.8 mg/dL Normal 7.6-11.0 [facility] Comment on above: Order Comment: Order Date: 03/02/25 Order Info: 0786- - CMP Order Info: [id number] - LIPID Order Info: [id number] - TSH Performed By: #### L 500.4050, L501.9520, L500.4100, L502.0500 #### [facility] [address] [place], [address] Chloride [Moles/Vol] 101 mmol/L Normal 98-108 [facility] Comment on above: Order Comment: Order Date: 03/02/25 Order Info: 0786- - CMP Order Info: - LIPID Order Info: [id number] - TSH Performed By: #### L 500.4050, L501.9520, L500.4100, L502.0500 #### [facility] [address] [place], [address] CO2 [Moles/Vol] 21.6 mmol/L Normal 21.0-32.0 [facility] Comment on above: Order Comment: Order Date: 03/02/25 Order Info: 0786- - CMP Order Info: [id number] - LIPID Order Info: [id number] - TSH Performed By: #### L 500.4050, L501.9520, L500.4100, L502.0500 #### [facility] [address] [place], [address] Creatinine [Mass/Vol] 1.21 mg/dL High 0.70-1.20 [facility] Comment on above: Order Comment: Order Date: 03/02/25 Order Info: [id number] - CMP Order Info: [id number] - LIPID Order Info: [id number] - TSH Performed By: #### L 500.4050, L501.9520, L500.4100, L502.0500 #### [facility] [address] [place], [address] GAP 14 Normal 5-15 [facility] Comment on above: Order Comment: Order Date: 03/02/25 Order Info: [id number] - CMP Order Info: [id number] - LIPID Order Info: [id number] - TSH Performed By: #### L 500.4050, L501.9520, L500.4100, L502.0500 #### [facility] [address] [place], [address] GFR/1.73 sq M.predicted among non-blacks MDRD (S/P/Bld) [Vol rate/Area] 60 mL/min/{1.73_m2} Normal >60 [facility] Comment on above: Order Comment: Order Date: 03/02/25 Order Info: [id number] - CMP Order Info: - LIPID Order Info: 3 - TSH Result Comment: mL/m in/1.73m2 CKD-EPI Creatinine Equation (2020) Performed By: #### L 500.4050, L501.9520, L500.4100, L502.0500 #### [facility] [address] [place], [address] Globulin (S) [Mass/Vol] 3.9 g/dL Normal 2.2-4.2 [facility] Comment on above: Order Comment: Order Date: 03/02/25 Order Info: [id number] - CMP Order Info: [id number] - LIPID Order Info: [id number] - TSH Performed By: #### L 500.4050, L501.9520, L500.4100, L502.0500 #### [facility] [address] [place], [address] Glucose [Mass/Vol] 160 mg/dL High 70-99 [facility] Comment on above: Order Comment: Order Date: 03/02/25 Order Info: 785- - CMP Order Info: [id number] - LIPID Order Info: 3 - TSH Performed By: #### L 500.4050, L501.9520, L500.4100, L502.0500 #### [facility] [address] [place], [address] Potassium [Moles/Vol] 4.4 mmol/L Normal 3.3-5.1 [facility] Comment on above: Order Comment: Order Date: 03/02/25 Order Info: 0786- - CMP Order Info: [id number] - LIPID Order Info: 3 - TSH Performed By: #### L 500.4050, L501.9520, L500.4100, L502.0500 #### [facility] [address] [place], [address] Sodium [Moles/Vol] 136 mmol/L Normal 133-145 [facility] Comment on above: Order Comment: Order Date: 03/02/25 Order Info: 0786 - CMP Order Info: [id number] - LIPID Order Info: 3 - TSH Performed By: #### L 500.4050, L501.9520, L500.4100, L502.0500 #### [facility] [address] [place], [address] T PROT 8.4 g/dL Normal 5.9-8.4 [facility] Comment on above: Order Comment: Order Date: 03/02/25 Order Info: 0786 - CMP Order Info: [id number] - LIPID Order Info: 3 - TSH Performed By: #### L 500.4050, L501.9520, L500.4100, L502.0500 #### [facility] [address] [place], [address] Urea nitrogen [Mass/Vol] 26 mg/dL High 4-19 [facility] Comment on above: Order Comment: Order Date: 03/02/25 Order Info: [id number] - CMP Order Info: [id number] - LIPID Order Info: 3 - TSH Performed By: #### L 500.4050, L501.9520, L500.4100, L502.0500 #### [facility] [address] [place], [address] Glomerular filtration rate ( GFR) estimation/1.73 sq m using serum, plasma, or whole bOrdered By: Machelle Pedraza on 03-03-2025 GFR/1.73 sq M.predicted among non-blacks MDRD (S/P/Bld) [Vol rate/Area] 60 mL/min/{1.73_m2} >60 [facility] Comment on above: mL/min/1.73m2 CKD-EP I Creatinine Equation (2020) LDL calc ser/plasOrdered By: Machelle Pedraza on 03-03-2025 Cholesterol in LDL [Mass/Vol] 92 mg/dL [facility] Comment on above: Soyayievwi=308-074 m g/dL & Higher Cxgd=426 mg/dL or greater Laboratory - Chemistry and C hemistry - challengeOrdered By: Machelle Pedraza on 03-03-2025 AST [Catalytic activity/Vol] 22 U/L <38 [facility] Lipid Profileon 03-03-2025 CHOL:HDL 5.56 Normal [facility] Comment on above: Order Comment: Order Date: 03/02/25 Order Info: [id number] - CMP Order Info: [id number] - LIPID Order Info: [id number] - TSH Performed By: #### L 500.4050, L501.9520, L500.4100, L502.0500 #### [facility] [address] [place], [place], [address] Cholesterol [Mass/Vol] 149 mg/dL Normal <=200 [facility] Comment on above: Order Comment: Order Date: 03/02/25 Order Info: [id number] - CMP Order Info: [id number] - LIPID Order Info: [id number] - TSH Result Comment: Chol esterol level, Desirable <200 mg/dL Borderline high cholesterol 200-239 mg/dL High cholesterol >=240 mg/dL Recommendations of the NCEP Adult Treatment Panel for the following risk-cutoff thresholds for the [place] population. Performed By: #### L 500.4050, L501.9520, L500.4100, L502.0500 #### [facility] [address] [place], [address] Cholesterol in HDL [Mass/Vol] 27 mg/dL Low [facility] Comment on above: Order Comment: Order Date: 03/02/25 Order Info: 07 - CMP Order Info: - LIPID Order Info: [id number] - TSH Result Comment: Linda onal Cholesterol Education Program (NCEP) guidelines: <40 mg/dL: Low HDL-cholesterol (major risk factor for CHD) >= 60 mg/dL: High HDL-cholesterol (negative risk factor for CHD) HDL-cholesterol is affected by a number of factors, e.g. smoking, exercise, hormones, sex and age. Performed By: #### L 500.4050, L501.9520, L500.4100, L502.0500 #### [facility] [address] [place], [address] Cholesterol in LDL [Mass/Vol] 92 mg/dL Normal [facility] Comment on above: Order Comment: Order Date: 03/02/25 Order Info: 07 - CMP Order Info: - LIPID Order Info: [id number] - TSH Result Comment: Bord dmxrbz=428-472 mg/dL Higher Hlpl=060 mg/dL or greater Performed By: #### L 500.4050, L501.9520, L500.4100, L502.0500 #### [facility] [address] [place], [address] Cholesterol in VLDL [Mass/Vol] 30 mg/dL Normal 5-40 [facility] Comment on above: Order Comment: Order Date: 03/02/25 Order Info: 07 - CMP Order Info: [id number] - LIPID Order Info: 3 - TSH Performed By: #### L 500.4050, L501.9520, L500.4100, L502.0500 #### [facility] [address] [place], [address] Triglyceride [Mass/Vol] 149 mg/dL Normal [facility] Comment on above: Order Comment: Order Date: 03/02/25 Order Info: [id number] - CMP Order Info: [id number] - LIPID Order Info: [id number] - TSH Result Comment: The drugs N-Acetylcysteine and Metamizole may falsely depress this assay. Normal range: <150 mg/dL Borderline High: 150-199 mg/dL High: 200-499 mg/dL Very High: >500 mg/dL Performed By: #### L 500.4050, L501.9520, L500.4100, L502.0500 #### [facility] [address] [place], [address] Microalbumin,Random Urineon 03-03-2025 MICROALBUMIN,UR < 12.0 Normal NO RANGE EST. [facility] Comment on above: Order Comment: Order Date: 03/02/25 Order Info: [id number] - MIALB Performed By: #### L 500.4050, L501.9520, L500.4100, L502.0500 #### [facility] [address] [place], [address] Potassium measurement (mass/ volume)Ordered By: Machelle Pedraza on 03-03-2025 Potassium (Unsp spec) [Mass/Vol] 4.4 mmol/L 3.3-5.1 [facility] Protein+Creatinine Ratio,Uri neon 03-03-2025 PROT:CRE RATIO 104 mg/g CRE Normal 0-200 [facility] Comment on above: Order Comment: Order Date: 03/02/25 Order Info: [id number] - MIALB Performed By: #### L 500.4050, L501.9520, L500.4100, L502.0500 #### [facility] [address] [place], [address] Protein (U) [Mass/Vol] 9.4 mg/dL Normal 0.0-12.0 [facility] Comment on above: Order Comment: Order Date: 03/02/25 Order Info: [id number] - MIALB Performed By: #### L 500.4050, L501.9520, L500.4100, L502.0500 #### [facility] [address] [place], [place], [id number] UR CREAT 90.20 mg/dL Normal 39.00-259.00 [facility] Comment on above: Order Comment: Order Date: 03/02/25 Order Info: [id number] - MIALB Performed By: #### L 500.4050, L501.9520, L500.4100, L502.0500 #### [facility] [address] [place], [place], [address] Random urine creatinine berkley urement (mass/volume)Ordered By: Machelle Pedraza on 03-03-2025 Creatinine Unsp time (U) [Mass/Vol] 90.20 mg/dL 39.00-259.00 [facility] Screening total cholesterol/ high density lipoprotein (HDL) cholesterol ratioOrdered By: Machelle Pedraza on 03-03-2025 Cholesterol.total/Nita sterol in HDL [Mass ratio] 5.56 {ratio} [facility] Serum creatinine measurement (mass/volume)Ordered By: Machelle Pedraza on 03-03-2025 Creatinine [Mass/Vol] 1.21 mg/dL High 0.70-1.20 [facility] Serum globulin measurementOr dered By: Machelle Pedraza on 03-03-2025 Globulin (S) [Mass/Vol] 3.9 g/dL 2.2-4.2 [facility] Serum glucose measurement (m ass/volume)Ordered By: Machelle Pedraza on 03-03-2025 Glucose [Mass/Vol] 160 mg/dL High 70-99 [facility] Serum or plasma alanine zabala otransferase (ALT) measurementOrdered By: Machelle Pedraza on 03-03-2025 ALT [Catalytic activity/Vol] 12 U/L <47 [facility] Serum or plasma albumin berkley urement (mass/volume)Ordered By: Machelle Pedraza on 03-03-2025 Albumin [Mass/Vol] 4.5 g/dL 3.4-4.8 [facility] Serum or plasma albumin/glob ulin mass ratioOrdered By: Machelle Pedraza on 03-03-2025 Albumin/Globulin [Mass ratio] 1.2 {ratio} 0.9-2.4 [facility] Serum or plasma alkaline jan sphatase measurementOrdered By: Machelle Pedraza on 03-03-2025 ALP [Catalytic activity/Vol] 67 U/L 40-129 [facility] Serum or plasma calcium berkley urement (mass/volume)Ordered By: Machelle Pedraza on 03-03-2025 Calcium [Mass/Vol] 9.8 mg/dL 7.6-11.0 [facility] Serum or plasma cholesterol in HDL measurement (mass/volume)Ordered By: Machelle Pedraza on 03-03-2025 Cholesterol in HDL [Mass/Vol] 27 mg/dL Low >40 [facility] Comment on above: National Cholesterol Education Program (NCEP) guidelines:<40 mg/dL: Low HDL-cholesterol (major risk factor for CHD)>= 60 mg/dL: High HDL-cholesterol (negative risk factor for CHD)HDL-cholesterol is affected by a number of factors, e.g. smoking, exercise, hormones, sex and age. Serum or plasma cholesterol measurement (mass/volume)Ordered By: Machelle Pedraza on 03-03-2025 Cholesterol [Mass/Vol] 149 mg/dL <201 [facility] Comment on above: Cholesterol level, D esirable <200 mg/dLBorderline high cholesterol 200-239 mg/dLHigh cholesterol >=240 mg/dLRecommendations of the NCEP Adult Treatment Panel for the following risk-cutoff thresholds for the [place] population. Serum or plasma urea nitroge n measurement (mass/volume)Ordered By: Machelle Pedraza on 03-03-2025 Urea nitrogen [Mass/Vol] 26 mg/dL High 4-19 [facility] Sodium levelOrdered By: Machelle Pedraza on 03-03-2025 Sodium [Moles/Vol] 136 mmol/L 133-145 [facility] TSH DL <= 0.005 mIU/L QnOrde red By: Machelle Pedraza on 03-03-2025 TSH Qn 3.290 uIU/mL 0.300-4.200 [facility] Thyroid Stim Hormone (TSH)on 03-03-2025 TSH 3.290 uIU/mL Normal 0.300-4.200 [facility] Comment on above: Order Comment: Order Date: 03/02/25 Order Info: [id number] - CMP Order Info: [id number] - LIPID Order Info: [id number] - TSH Performed By: #### L 500.4050, L501.9520, L500.4100, L502.0500 #### [facility] [address] [place], [place], [address] Total proteinOrdered By: Xiomara Pedraza on 03-03-2025 Protein [Mass/Vol] 8.4 g/dL 5.9-8.4 [facility] Triglycerides measurementOrd ered By: Machelle Pedraza on 03-03-2025 Triglyceride [Mass/Vol] 149 mg/dL <199 [facility] Comment on above: The drugs N-Acetylcy steine and Metamizole may falsely depress this assay. Normal range: <150 mg/dLBorderline High: 150-199 mg/dLHigh: 200-499 mg/dLVery High: >500 mg/dL Urine albumin measurement wi th detection limit of 20 mg/L or less (mass/volume)Ordered By: Machelle Pedraza on 03-03-2025 Albumin DL <= 20 mg/L (U) [Mass/Vol] < 12.0 mg/L NO RANGE EST. [facility] Urine protein measurement (m ass/volume)Ordered By: Machelle Pedraza on 03-03-2025 Protein (U) [Mass/Vol] 9.4 mg/dL 0.0-12.0 [facility] Urine protein/creatinine mas s ratioOrdered By: Machelle Pedraza on 03-03-2025 Protein/Creatinine (U) [Mass ratio] 104 mg/g CRE 0-200 [facility] Thyroid Stim Hormone (TSH)on 09-01-2024 TSH 5.720 uIU/mL High 0.358-3.740 [facility] Comment on above: Performed By: #### L [phone] #### [facility] [address] [place], [address] Thin prep Papanicolaou smear with manual screeningOrdered By: Richard Fields on 02-22-2024 Thin prep Papanicolaou smear with manual screening 123 mg/dL 74-106 [facility] Comment on above: MANAGEMENT OF PATIEN T CARE PER NURSING PROTOCOL Basophil percentageOrdered B y: Adan Watkins on 02-14-2024 Chloride [Moles/Vol] 107 mmol/L 98-107 [facility] Glucose [Mass/Vol] 150 mg/dL 74-106 [facility] Comment on above: Fasting Glucose resu lt greater than or equal to 126 mg/dL suggests DIABETES MELLITUS per A.D.A. criteria. Hemoglobin (Bld) [Mass/Vol] 11.9 g/dL 13.0-16.5 [facility] Potassium [Moles/Vol] 4.4 mmol/L 3.5-5.1 [facility] Sodium [Moles/Vol] 136 mmol/L 136-145 [facility] WBC (Bld) [#/Vol] 8.3 10*3/uL 4.4-11.0 [facility] Determination of erythrocyte mean corpuscular volume (MCV)Ordered By: Adan Watkins on 02-14-2024 MCV (RBC) [Entitic vol] 89.1 fL 80-94 [facility] Erythrocyte distribution wid th ratioOrdered By: Adan Watkins on 02-14-2024 Erythrocyte distribution width (RBC) [Ratio] 14.6 % 11.6-14.6 [facility] Erythrocyte distribution wid th standard deviationOrdered By: Adan Watkins on 02-14-2024 Erythrocyte distribution width (RBC) [Entitic vol] 47.9 fL 35.1-43.9 [facility] Hematocrit Auto (Bld) [Volum e fraction]Ordered By: Adan Watkins on 02-14-2024 Hematocrit (Bld) [Volume fraction] 36.8 % 40-54 [facility] - Chemistry and C hemistry - challengeOrdered By: Adan Watkins on 02-14-2024 CO2 [Moles/Vol] 25.0 mmol/L 21.0-32.0 [facility] Urea nitrogen/Creatinine [Mass ratio] 21.1 mg/mg 10-20 [facility] - Hematology and Cell countsOrdered By: Adan Watkins on 02-14-2024 MCH (RBC) [Entitic mass] 28.8 pg 27.0-32.0 [facility] MCHC (RBC) [Mass/Vol] 32.3 g/dL 32-36 [facility] Platelet mean volume (Bld) [Entitic vol] 10.4 fL 6.2-12.0 [facility] Platelets (Bld) [#/Vol] 165 10*3/uL 150-450 [facility] No Panel InformationOrdered By: Adan Watkins on 02-14-2024 Estimated GFR (MDRD) Amer 66 mL/min >60 [facility] Comment on above: GFR Calc Estimated GFR (MDRD) Non-Af Amer 55 mL/min >60 [facility] Comment on above: Non- GFR Calc RBC Auto (Bld) [#/Vol]Ordere d By: Adan Watkins on 02-14-2024 RBC (Bld) [#/Vol] 4.13 10*6/uL 4.6-6.2 [facility] Serum or plasma calcium berkley urement (mass/volume)Ordered By: Adan Watkins on 02-14-2024 Calcium [Mass/Vol] 9.5 mg/dL 8.5-10.1 [facility] Serum or plasma creatinine m easurement (mass/volume)Ordered By: Adan Watkins on 02-14-2024 Creatinine [Mass/Vol] 1.33 mg/dL 0.70-1.30 [facility] Comment on above: The validity of the calculated GFR & GFRAA in patients over 70 years has not been determined. Clinical correlation is essential. Serum or plasma urea nitroge n measurement (mass/volume)Ordered By: Adan Watkins on 02-14-2024 Urea nitrogen [Mass/Vol] 28 mg/dL 7-18 [facility] Thin prep Papanicolaou smear with manual screeningOrdered By: Adan Watkins on 02-14-2024 Thin prep Papanicolaou smear with manual screening 4 5-15 [facility] Whole blood hemoglobin A1c/t otal hemoglobin ratio (mass fraction)Ordered By: Adan Watkins on 02-14-2024 HbA1c (Bld) [Mass fraction] 7.2 % 3.8-5.6 [facility] Comment on above: Normal < 5.7 % Predi abetic 5.7 - 6.4 % Diabetic >or= 6.5 % Please note range changes. Culture, urineOrdered By: Smiley Fields on 02-04-2024 Bacteria identified Cx Nom (U) Negative [facility] Serum or plasma uric acid me asurement (mass/volume)Ordered By: Indira Tidwell on 08-23-2023 Urate [Mass/Vol] 7.1 mg/dL 3.5-7.2 [facility] Comment on above: The drugs N-Acetylcy steine and Metamizole may falsely depress this assay. Basophil percentageOrdered B y: Dr. Fields on 02-08-2023 Chloride [Moles/Vol] 105 mmol/L 98-107 [facility] Glucose [Mass/Vol] 150 mg/dL 74-106 [facility] Comment on above: Fasting Glucose resu lt greater than or equal to 126 mg/dL suggests DIABETES MELLITUS per A.D.A. criteria. Potassium [Moles/Vol] 4.4 mmol/L 3.5-5.1 [facility] Sodium [Moles/Vol] 136 mmol/L 136-145 [facility] WBC (Bld) [#/Vol] 5.6 10*3/uL 4.4-11.0 [facility] Blood erythrocytes count (nu mber/volume)Ordered By: Dr. Fields on 02-08-2023 RBC (Bld) [#/Vol] 4.38 10*6/uL 4.6-6.2 [facility] Blood hemoglobin measurement (mass/volume)Ordered By: Dr. Fields on 02-08-2023 Hemoglobin (Bld) [Mass/Vol] 13.2 g/dL 13.0-16.5 [facility] Blood platelet mean volumeOr dered By: Dr. Fields on 02-08-2023 Platelet mean volume (Bld) [Entitic vol] 11.1 fL 6.2-12.0 [facility] Determination of erythrocyte mean corpuscular volume (MCV)Ordered By: Dr. Fields on 02-08-2023 MCV (RBC) [Entitic vol] 94.5 fL 80-94 [facility] Hematocrit Auto (Bld) [Volum e fraction]Ordered By: Dr. Fields on 02-08-2023 Hematocrit (Bld) [Volume fraction] 41.4 % 40-54 [facility] - Chemistry and C hemistry - challengeOrdered By: Dr. Fields on 02-08-2023 CO2 [Moles/Vol] 26.0 mmol/L 21.0-32.0 [facility] Urea nitrogen/Creatinine [Mass ratio] 13.0 mg/mg 10-20 [facility] - Hematology and Cell countsOrdered By: Dr. Fields on 02-08-2023 Erythrocyte distribution width (RBC) [Entitic vol] 48.2 fL 35.1-43.9 [facility] Erythrocyte distribution width (RBC) [Ratio] 13.8 % 11.6-14.6 [facility] MCH (RBC) [Entitic mass] 30.1 pg 27.0-32.0 [facility] MCHC Auto (RBC) [Mass/Vol]Or dered By: Dr. Fields on 02-08-2023 MCHC (RBC) [Mass/Vol] 31.9 g/dL 32-36 [facility] No Panel InformationOrdered By: Dr. Fields on 02-08-2023 Estimated GFR (MDRD) Amer 68 mL/min >60 [facility] Comment on above: GFR Calc Estimated GFR (MDRD) Non-Af Amer 56 mL/min >60 [facility] Comment on above: Non- GFR Calc Prostate Specific Antigen Total 2.87 ng/mL 0.0-4.0 [facility] Comment on above: This test was perfor med using the TPSA assay method for the[employer] chemistry system. Values obtained with differentassay methods cannot be used interchangably.When changing PSA assays in the course of monitoring apatient, additional sequential testing should be carriedout to confirm baseline values. Platelets bldOrdered By: Dr. Fields on 02-08-2023 Platelets (Bld) [#/Vol] 153 10*3/uL 150-450 [facility] Serum or plasma calcium berkley urement (mass/volume)Ordered By: Dr. Fields on 02-08-2023 Calcium [Mass/Vol] 9.4 mg/dL 8.5-10.1 [facility] Serum or plasma creatinine m easurement (mass/volume)Ordered By: Dr. Fields on 02-08-2023 Creatinine [Mass/Vol] 1.31 mg/dL 0.70-1.30 [facility] Comment on above: The validity of the calculated GFR & GFRAA in patients over 70 years has not been determined. Clinical correlation is essential. Serum or plasma urea nitroge n measurement (mass/volume)Ordered By: Dr. Fields on 02-08-2023 Urea nitrogen [Mass/Vol] 17 mg/dL 7-18 [facility] Thin prep Papanicolaou smear with manual screeningOrdered By: Dr. Fields on 02-08-2023 Thin prep Papanicolaou smear with manual screening 5 5-15 [facility] No Panel Informationon 02-06 Prostate Specific Antigen Total 2.25 ng/mL 0.0-4.0 [facility] Work Phone: Comment on above: This test was perfor med using the TPSA assay method for the[employer] chemistry system. Values obtained with differentassay methods cannot be used interchangably.When changing PSA assays in the course of monitoring apatient, additional sequential testing should be carriedout to confirm baseline values. Basophil percentageon 2021 Creatinine [Mass/Vol] 1.6 mg/dL 0.70-1.30 [facility] Work Phone: Laboratory - Chemistry and C hemistry - challengeon 01-27-2022 GFR/1.73 sq M.predicted among non-blacks MDRD (S/P/Bld) [Vol rate/Area] 43.0000 mL/min/{1.73_m2} >60 [facility] Work Phone: Basophil percentageon 2021 Bilirubin [Mass/Vol] 0.50 mg/dL 0.20-1.00 [facility] Work Phone: Comment on above: For patients on eltr ombopag therapy, use of Dimension [place] TBIL is not recommended. Chloride [Moles/Vol] 106 mmol/L 98-107 [facility] Work Phone: Cholesterol [Mass/Vol] 173 mg/dL <200 [facility] Work Phone: Comment on above: <200 mg/dL Desirable 200-240 mg/dL Borderline >240 mg/dL High Risk Glucose [Mass/Vol] 103 mg/dL 74-106 [facility] Work Phone: Comment on above: Fasting Glucose resu lt from 100 to 125 mg/dL suggests IMPAIRED HOMEOSTASIS per A.D.A. criteria. Potassium [Moles/Vol] 4.4 mmol/L 3.5-5.1 [facility] Work Phone: Protein [Mass/Vol] 7.8 g/dL 6.4-8.2 [facility] Work Phone: Sodium [Moles/Vol] 138 mmol/L 136-145 [facility] Work Phone: Triglyceride [Mass/Vol] 331 mg/dL [facility] Work Phone: Comment on above: The drugs N-Acetylcy steine and Metamizole may falsely depress this assay.Serum Triglycerides Reference Interval Normal <150 mg/dL Borderline high 150 - 199 mg/dL High 200 - 499 mg/dL Very High > or = 500 mg/dL Direct bilirubinon 2 Bilirubin.direct [Mass/Vol] 0.10 mg/dL 0.00-0.30 [facility] Work Phone: Laboratory - Chemistry and C hemistry - challengeon 01-24-2022 ALP [Catalytic activity/Vol] 54 U/L 45-117 [facility] Work Phone: ALT [Catalytic activity/Vol] 31 U/L 16-61 [facility] Work Phone: CO2 [Moles/Vol] 26.0 mmol/L 21.0-32.0 [facility] Work Phone: Globulin (S) [Mass/Vol] 3.6 g/dL 2.2-4.2 [facility] Work Phone: Urea nitrogen/Creatinine [Mass ratio] 20.3 mg/mg 10-20 [facility] Work Phone: No Panel Informationon 01-24 Estimated GFR (MDRD) Amer 67 mL/min >60 [facility] Work Phone: Comment on above: GFR Calc Estimated GFR (MDRD) Non-Af Amer 55 mL/min >60 [facility] Work Phone: Comment on above: Non- GFR Calc Serum or plasma albumin berkley urement (mass/volume)on 01-24-2022 Albumin [Mass/Vol] 4.2 g/dL 3.2-5.0 [facility] Work Phone: Serum or plasma calcium berkley urement (mass/volume)on 01-24-2022 Calcium [Mass/Vol] 9.3 mg/dL 8.5-10.1 [facility] Work Phone: Serum or plasma cholesterol in HDL measurement (mass/volume)on 01-24-2022 Cholesterol in HDL [Mass/Vol] 28 mg/dL [facility] Work Phone: Comment on above: The drugs N-Acetylcy steine and Metamizole may falsely depress this assay. Reference Range HDL <40 mg/dL Low HDL Cholesterol HDL >or= 60 mg/dL High HDL Cholesterol Serum or plasma cholesterol in VLDL measurement (mass/volume)on 01-24-2022 Cholesterol in VLDL [Mass/Vol] 66 mg/dL 5-40 [facility] Work Phone: Serum or plasma creatinine m easurement (mass/volume)on 01-24-2022 Creatinine [Mass/Vol] 1.33 mg/dL 0.70-1.30 [facility] Work Phone: Comment on above: The validity of the calculated GFR & GFRAA in patients over 70 years has not been determined. Clinical correlation is essential. Serum or plasma low density lipoprotein (LDL) cholesterol measurement (mass/volume)on 01-24-2022 Cholesterol in LDL [Mass/Vol] 79 mg/dL 0-130 [facility] Work Phone: Serum or plasma urea nitroge n measurement (mass/volume)on 01-24-2022 Urea nitrogen [Mass/Vol] 27 mg/dL 7-18 [facility] Work Phone: Thin prep Papanicolaou smear with manual screeningon 01-24-2022 Thin prep Papanicolaou smear with manual screening 25 U/L 15-37 [facility] Work Phone: Thin prep Papanicolaou smear with manual screening 6 5-15 [facility] Work Phone: Office Visiton 08-02-2017 Documentation of current medications (procedure) Done Invalid Interpretation Code [facility] Work Phone: Protein mass conc Done Invalid Interpretation Code [facility] Work Phone: Tobacco smoking status NHIS Never Invalid Interpretation Code [facility] Work Phone: Tobacco smoking status NHIS Former smoker Invalid Interpretation Code [facility] Work Phone: Tobacco use CPHS Former smoker Invalid Interpretation Code [facility] Work Phone: Office Visiton 06-26-2017 Documentation of current medications (procedure) Done Invalid Interpretation Code [facility] Work Phone: Tobacco smoking status NHIS Never Invalid Interpretation Code [facility] Work Phone: Tobacco use CPHS Former smoker Invalid Interpretation Code [facility] Work Phone: Lab Report: Bedside Glucoseo n 06-13-2017 Glucose 154 mg/dL High 70-110 [facility] Work Phone: Glucose mass conc 154 mg/dL High 70-110 [facility] Work Phone: Office Visiton 05-22-2017 Documentation of current medications (procedure) Done Invalid Interpretation Code [facility] Work Phone: Protein mass conc [facility] Work Phone: Tobacco smoking status NHIS Never Invalid Interpretation Code [facility] Work Phone: Tobacco smoking status NHIS Former smoker [facility] Work Phone: Tobacco use CPHS Former smoker Invalid Interpretation Code [facility] Work Phone: Office Visiton 03-15-2017 Documentation of current medications (procedure) Done Invalid Interpretation Code [facility] Work Phone: Protein mass conc [facility] Work Phone: Tobacco smoking status NHIS Never [facility] Work Phone: Tobacco smoking status MNIS Former smoker [facility] Work Phone: Tobacco use CPHS Former smoker Invalid Interpretation Code [facility] Work Phone: Vital Signs Date Time Vital Sign Value Performing Clinician Facility 02-22-2024 18:12-0400 Body temperature 97.5 [degF] Dr. Indira Tidwell Work Phone: [facility] 02-22-2024 18:12-0400 Diastolic blood pressure 81 mm[Hg] Dr. Indira Tidwell Work Phone: [facility] 02-22-2024 18:12-0400 Heart rate 96 /min Dr. Indira Tidwell Work Phone: [facility] 02-22-2024 18:12-0400 Respiratory rate 17 /min Dr. Indira Tidwell Work Phone: [facility] 02-22-2024 18:12-0400 SaO2% (BldA) [Mass fraction] 98 % Dr. Indira Tidwell Work Phone: [facility] 02-22-2024 18:12-0400 Systolic blood pressure 138 mm[Hg] Dr. Indira Tidwell Work Phone: [facility] 02-22-2024 09:05-0400 Body height 182.[address] Indira Tidwell Work Phone: [facility] 02-22-2024 09:05-0400 Body mass index (BMI) [Ratio] 28.2 kg/m2 Dr. Indira Tidwell Work Phone: [facility] 02-22-2024 09:05-0400 Body weight 94.[address] Indira Tidwell Work Phone: [facility] 04-10-2022 09:27-0400 Diastolic Blood Pressure NBP [address] BENIGNO STARKEY MD [facility] 04-10-2022 09:27-0400 Heart rate 72 /min DR BENIGNO STARKEY MD [facility] 04-10-2022 09:27-0400 Respiratory rate 17 /min DR BENIGNO STARKEY MD [facility] 04-10-2022 09:27-0400 Systolic Blood Pressure NBP [address] BENIGNO TSARKEY MD [facility] 04-10-2022 09:22-0400 Diastolic Blood Pressure NBP [address] BENIGNO STARKEY MD [facility] 04-10-2022 09:22-0400 Heart rate 73 /min DR BENIGNO STARKEY MD [facility] 04-10-2022 09:22-0400 Respiratory rate 20 /min DR BENIGNO STARKEY MD [facility] 04-10-2022 09:22-0400 Systolic Blood Pressure NBP [address] BENIGNO STARKEY MD [facility] 04-10-2022 09:16-0400 Diastolic Blood Pressure NBP [address] BENIGNO STARKEY MD [facility] 04-10-2022 09:16-0400 Heart rate 77 /min DR BENIGNO STARKEY MD [facility] 04-10-2022 09:16-0400 Respiratory rate 15 /min DR BENIGNO STARKEY MD [facility] 04-10-2022 09:16-0400 Systolic Blood Pressure NBP [address] BENIGNO STARKEY MD [facility] 04-10-2022 09:08-0400 Body temperature 96.08 [degF] DR BENIGNO STARKEY MD [facility] 04-10-2022 07:55-0400 Body height [address] BENIGNO STARKEY MD [facility] 04-10-2022 07:55-0400 Body temperature 96.8 [degF] DR BENIGNO STARKEY MD [facility] 04-10-2022 07:55-0400 Body weight [address] BENIGNO STARKEY MD [facility] 04-10-2022 07:55-0400 Body weight 29.86 kg/m2 DR BENIGNO STARKEY MD [facility] 04-10-2022 07:55-0400 diastolic 82 mm[Hg] DR BENIGNO STARKEY MD [facility] 04-10-2022 07:55-0400 Heart rate 74 /min DR BENIGNO STARKEY MD [facility] 04-10-2022 07:55-0400 systolic 130 mm[Hg] DR BENIGNO STARKEY MD [facility] 08-31-2016 09:36-0500 BMI (Body Mass Index) 30.65 kg/m2 [facility] Work Phone: 08-31-2016 09:36-0500 Height 182.88 cm [facility] Work Phone: 08-31-2016 09:36-0500 Weight 102.51 kg [facility] Work Phone: Encounters Encounter Date Encounter Type Care Provider Facility Start: 06-12-2025 End: 06-12-[address] Indira Tidwell MD Work Phone: -[facility] Start: 06-12-2025 End: 06-12-[address] Yuki Kilgore MD -Laboratory [facility] Start: 06-12-2025 End: 06-12-2025 ambulatory Yuki Kilgore Facility:[facility] Start: 03-03-2025 End: 03-03-[address] Indira Tidwell MD Work Phone: [facility] Work Phone: Start: 03-03-2025 End: 03-03-2025 Patient encounter procedure Machelle Pedraza VENDING MACHINE [employer]ILLER-C -[facility] [place] Work Phone: Start: 03-03-2025 End: 03-03-2025 ambulatory Machelle Pedraza NP Facility:[facility] Start: 09-01-2024 End: 09-01-2024 ambulatory Indira Tidwell Facility:[facility] Start: 02-22-2024 End: 02-22-2024 Admission to same day surgery center Dr. Indira Tidwell Work Phone: [facility] Start: 02-22-2024 End: 02-22-[address] Indira Tidwell Work Phone: [facility] Work Phone: Start: 02-14-2024 End: 02-14-2024 Non-patient / Non-visit Dr. Indira Tidwell Work Phone: [facility] Work Phone: Start: 02-04-2024 End: 02-04-2024 ambulatory [facility] Work Phone: Start: 02-04-2024 End: 02-04-2024 Patient encounter procedure [facility]-Laboratory, [facility] Work Phone: Start: 01-22-2024 End: 01-22-2024 ambulatory [facility] Work Phone: Start: 01-22-2024 End: 01-22-2024 Patient encounter procedure [facility], [facility] Work Phone: Start: 08-23-2023 End: 08-23-2023 ambulatory [facility] Work Phone: Start: 08-23-2023 End: 08-23-2023 Patient encounter procedure [facility]-Laboratory, [facility] Start: 02-08-2023 End: 02-08-2023 ambulatory [facility] Work Phone: Start: 02-08-2023 End: 02-08-2023 Patient encounter procedure [facility]Laboratory Start: 04-10-2022 End: 04-10-[address] BENIGNO STARKEY MD. Facility:B Start: 04-10-2022 End: 04-10-[address] BENIGNO STARKEY MD [facility] Start: 02-06-2022 End: 02-06-2022 Patient encounter procedure [facility] Start: 01-27-2022 End: 01-27-2022 Patient encounter procedure [facility] Start: 01-24-2022 End: 01-24-2022 [facility] Date Procedure Procedure Detail Performing Clinician Start: 06-12-[address] Indira Tidwell MD Work Phone: Comment on above: According to the [employer],the reference interval for Thyroglobulin (TG) should berelated to euthyroid patients and not for patients whounderwent thyroidectomy. TG reference intervals for thesepatients depend on the residual mass of the thyroid tissueleft after surgery. Establishing a post-operative baselineis recommended. The assay limit of quantitation is 0.1ng/mLThyroglobulin measured by [employer] [facility] [employer] Start: 06-12-20[address]o dy measurement [address] Indira Tidwell MD Work Phone: Comment on above: Thyroglobulin Antibo dy measured by Cole CoulterMethodologyIt should be noted that the presence of thyroglobulinantibodies may not be pathogenic nor diagnostic, especiallyat very low levels. The assay step down specialist has found thatfour percent of individuals without evidence of thyroiddisease or autoimmunity will have positive TgAb levels upto 4 IU/mL. Start: 06-12-2025 Total iron binding c apacity measurement Dr. Indira Tidwell MD Work Phone: Start: 06-12-2025 Urine microalbumin/c reatinine ratio measurement Dr. 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 Indira Tidwell Work Phone: Start: 02-04-2024 Urine culture Start: 01-22-2024 CT of abdomen and pe lvis without contrast Start: 02-08-2023 Plain chest X-ray Start: 01-27-2022 Computed tomography of abdomen and pelvis with contrast Start: 10-15-2021 Extracapsular extrac tion of cataract by curette evacuation DR BENIGNO STARKEY MD Comment on above: bilateral Start: 03-15-2017 End: 06-13-2017 [facility] Work Phone: Start: 03-15-2017 End: 06-13-2017 Nerve Conduction [facility] Work Phone: Start: 03-15-2017 End: 06-13-2017 [facility] Work Phone: Start: 03-15-2017 End: 06-13-2017 Nerve Conduction Lynn Wheat Work Phone: Start: 08-31-2016 End: 09-01-2016 Arthrocentesis aspir&/inj interm jt/burs w/o us Lynn Wheat Work Phone: Start: 08-31-2016 End: 06-13-2017 Radex wrist complete minimum 3 views Lynn Wheat Work Phone: Start: 08-31-2016 End: 09-01-2016 Drain/inject, joint/bursa Lynn Wheat Work Phone: Start: 08-31-2016 End: 06-13-2017 X-ray exam of wrist Lynn Wheat Work Phone: Start: 08-02-[address] BENIGNO STARKEY MD Start: 07-19-[address] BENIGNO STARKEY MD History of tonsillectomy DR BENIGNO STARKEY MD Transurethral prostatectomy DR BENIGNO STARKEY MD Plan of Treatment Date Care Activity Detail Author Start: 02-23-2024 Patient discharge [facility] Start: 02-22-2024 Ambulation without limitation [facility] Start: 02-22-2024 Medication education [facility] Start: 02-22-2024 Planned voiding [facility] Start: 02-22-2024 Taking patient vital signs [facility] Start: 02-22-2024 [facility] Start: 02-22-2024 End: 02-22-2024 Patient discharge [facility] Start: 08-02-2017 End: 08-02-2017 Appointment Appointment [facility] Work Phone: Start: 07-24-2017 End: 07-24-2017 Appointment Appointment [facility] Work Phone: Start: 06-26-2017 End: 06-26-2017 Appointment Appointment [facility] Work Phone: Start: 06-13-2017 End: 06-13-2017 Appointment Appointment [facility] Work Phone: Start: 05-22-2017 End: 05-22-2017 Appointment Appointment [facility] Work Phone: Start: 03-15-2017 End: 06-13-2017 EMG [facility] Work Phone: Start: 03-15-2017 End: 06-13-2017 Nerve Conduction Nerve Conduction [facility] Work Phone: Start: 03-15-2017 End: 06-13-2017 EMG EMG [facility] Work Phone: Start: 03-15-2017 End: 06-13-2017 Nerve Conduction Nerve Conduction [facility] Work Phone: Start: 08-31-2016 End: 06-13-2017 Radex wrist complete minimum 3 views X-Ray, Wrist [facility] Work Phone: Start: 08-31-2016 End: 06-13-2017 X-ray exam of wrist X-Ray, Wrist [facility] Work Phone: Patient referral [facility] Work Phone: Payers Date Payer Category Payer Self-pay [id number] 2016 Medicare [id number] 1940 Unknown [id number] Unknown [id number] Unknown [id number] Unknown [id number] Social History Date Type Detail Facility Start: 04-01-2019 End: 02-12-2024 Tobacco smoking status NHIS Unknown if ever smoked [facility] Start: 02-07-2019 None [facility] Start: 02-07-2019 Spouse/ Signif icant Other [facility] Start: 02-24-2019 Non-smoker [facility] Start: 1940 Sex Assigned At Male W [facility] Start: 04-10-2022 End: 02-12-2024 Tobacco smoking status Ex-smoker (finding) [facility] Sex Assigned At Sex [facility] Medical Equipment Procedure Code Equipment Code Equipment Origin al Text Equipment Identifier Dates Robot-assisted simple nephrectomy CLIP,HEMGRACE SIMEON FDA Start: 04-18-2019 Robot-assisted simple nephrectomy SEALANT,FLOSEAL HEMOSTATIC 5ML FDA Start: 04-18-2019 Robot-assisted simple nephrectomy CLIP,HEMOLOCK TERESA SIMEON FDA Start: 04-18-2019 Robot-assisted simple nephrectomy CLIP,HEMOLOCK TERESA SIMEON FDA Start: 04-18-2019 Robot-assisted simple nephrectomy CLIP,HEMOLOERIKA SIMEON FDA Start: 04-18-2019 Robot-assisted simple nephrectomy CLIP,HEMOLOCK TERESA SIMEON FDA Start: 04-18-2019 Robot-assisted simple nephrectomy CLIP,HEMOLOERIKA SIMEON FDA Start: 04-18-2019 Robot-assisted simple nephrectomy CLIP,HEMOLOERIKA SIMEON FDA Start: 04-18-2019 Robot-assisted simple nephrectomy CLIP,HEMOLOCK TERESA SIMEON FDA Start: 04-18-2019 Robot-assisted simple nephrectomy SEALANT,FLOSEAL HEMOSTATIC 5ML FDA Start: 04-18-2019 Robot-assisted simple nephrectomy CLIP,HEMOLOERIKA SIMEON FDA Start: 04-18-2019 Robot-assisted simple nephrectomy SEALANT,FLOSEAL HEMOSTATIC 5ML FDA Start: 04-18-2019 Robot-assisted simple nephrectomy CLIP,HEMOLOERIKA SIMEON FDA Start: 04-18-2019 Robot-assisted simple nephrectomy CLIP,HEMOLOCK TERESA SIMEON FDA Start: 04-18-2019 Robot-assisted simple nephrectomy CLIP,HEMOLOCK TERESA SIMEON FDA Start: 04-18-2019 Robot-assisted simple nephrectomy CLIP,HEMOLOCK TERESA SIMEON FDA Start: 04-18-2019 Robot-assisted simple nephrectomy CLIP,HEMOLOCK TERESA SIMEON FDA Start: 04-18-2019 Robot-assisted simple nephrectomy CLIP,HEMOLOCK TERESA SIMEON FDA Start: 04-18-2019 Robot-assisted simple nephrectomy CLIP,HEMOLOCK TERESA SIMEON FDA Start: 04-18-2019 Robot-assisted simple nephrectomy SEALANT,FLOSEAL HEMOSTATIC 5ML FDA Start: 04-18-2019 Robot-assisted simple nephrectomy CLIP,HEMOLOCK LG WECK FDA Start: 04-18-2019 Robot-assisted simple nephrectomy SEALANT,FLOSEAL HEMOSTATIC 5ML FDA Start: 04-18-2019 Robot-assisted simple nephrectomy CLIP,HEMOLOCK LG WECK FDA Start: 04-18-2019 Robot-assisted simple nephrectomy CLIP,HEMOLOCK LG WECK FDA Start: 04-18-2019 Robot-assisted simple nephrectomy CLIP,HEMOLOCK LG WECK FDA Start: 04-18-2019 Robot-assisted simple nephrectomy CLIP,HEMOLOCK LG WECK FDA Start: 04-18-2019 Robot-assisted simple nephrectomy CLIP,HEMOLOCK LG WECK FDA Start: 04-18-2019 Robot-assisted simple nephrectomy CLIP,HEMOLOCK LG WECK FDA Start: 04-18-2019 Robot-assisted simple nephrectomy CLIP,HEMOLOCK LG WECK FDA Start: 04-18-2019 Robot-assisted simple nephrectomy SEALANT,FLOSEAL HEMOSTATIC 5ML FDA Start: 04-18-2019 Robot-assisted simple nephrectomy CLIP,HEMOLOCK LG MIRLANDECK FDA Start: 04-18-2019 Robot-assisted simple nephrectomy SEALANT,FLOSEAL HEMOSTATIC 5ML FDA Start: 04-18-2019 Robot-assisted simple nephrectomy CLIP,HEMOLOCK LG MIRLANDECK FDA Start: 04-18-2019 Robot-assisted simple nephrectomy CLIP,HEMOLOCK LG MIRLANDECK FDA Start: 04-18-2019 Robot-assisted simple nephrectomy CLIP,HEMOLOCK LG MIRLANDECK FDA Start: 04-18-2019 Robot-assisted simple nephrectomy CLIP,HEMOLOCK LG MIRLANDECK FDA Start: 04-18-2019 Robot-assisted simple nephrectomy CLIP,HEMOLOCK LG MIRLANDECK FDA Start: 04-18-2019 Robot-assisted simple nephrectomy CLIP,HEMOLOCK LG MIRLANDECK FDA Start: 04-18-2019 Robot-assisted simple nephrectomy CLIP,HEMOLOCK LG MIRLANDECK FDA Start: 04-18-2019 Robot-assisted simple nephrectomy SEALANT,FLOSEAL HEMOSTATIC 5ML FDA Start: 04-18-2019 Robot-assisted simple nephrectomy CLIP,HEMOLOCK LG MIRLANDECK FDA Start: 04-18-2019 Robot-assisted simple nephrectomy SEALANT,FLOSEAL HEMOSTATIC 5ML FDA Start: 04-18-2019 Robot-assisted simple nephrectomy CLIP,HEMOLOCK LG MIRLANDECK FDA Start: 04-18-2019 Robot-assisted simple nephrectomy CLIP,HEMOLOCK LG MIRLANDECK FDA Start: 04-18-2019 Robot-assisted simple nephrectomy CLIP,HEMOLOCK LG WECK FDA Start: 04-18-2019 Robot-assisted simple nephrectomy CLIP,HEMOLOCK LG WECK FDA Start: 04-18-2019 Robot-assisted simple nephrectomy CLIP,HEMOLOCK LG WECK FDA Start: 04-18-2019 Robot-assisted simple nephrectomy CLIP,HEMOLOCK LG WECK FDA Start: 04-18-2019 Robot-assisted simple nephrectomy CLIP,HEMOLOCK LG WECK FDA Start: 04-18-2019 Robot-assisted simple nephrectomy SEALANT,FLOSEAL HEMOSTATIC 5ML FDA Start: 04-18-2019 Robot-assisted simple nephrectomy CLIP,HEMOLOCK LG WECK FDA Start: 04-18-2019 Robot-assisted simple nephrectomy SEALANT,FLOSEAL HEMOSTATIC 5ML FDA Start: 04-18-2019 Robot-assisted simple nephrectomy CLIP,HEMOLOCK LG WECK FDA Start: 04-18-2019 Robot-assisted simple nephrectomy CLIP,HEMOLOCK LG WECK FDA Start: 04-18-2019 Robot-assisted simple nephrectomy CLIP,HEMOLOCK LG WECK FDA Start: 04-18-2019 Robot-assisted simple nephrectomy CLIP,HEMOLOCK LG WECK FDA Start: 04-18-2019 Robot-assisted simple nephrectomy CLIP,HEMOLOCK LG WECK FDA Start: 04-18-2019 Robot-assisted simple nephrectomy CLIP,HEMOLOCK LG WECK FDA Start: 04-18-2019 Robot-assisted simple nephrectomy CLIP,HEMOLOCK LG WECK FDA Start: 04-18-2019 Robot-assisted simple nephrectomy SEALANT,FLOSEAL HEMOSTATIC 5ML FDA Start: 04-18-2019 Robot-assisted simple nephrectomy CLIP,HEMOLOCK LG WECK FDA Start: 04-18-2019 Robot-assisted simple nephrectomy SEALANT,FLOSEAL HEMOSTATIC 5ML FDA Start: 04-18-2019 Robot-assisted simple nephrectomy CLIP,HEMOLOCK LG WECK FDA Start: 04-18-2019 Robot-assisted simple nephrectomy CLIP,HEMOLOCK LG WECK FDA Start: 04-18-2019 Robot-assisted simple nephrectomy CLIP,HEMOLOCK LG WECK FDA Start: 04-18-2019 Robot-assisted simple nephrectomy CLIP,HEMOLOCK LG WECK FDA Start: 04-18-2019 Robot-assisted simple nephrectomy CLIP,HEMOLOCK LG WECK FDA Start: 04-18-2019 Robot-assisted simple nephrectomy CLIP,HEMOLOCK LG WECK FDA Start: 04-18-2019 Robot-assisted simple nephrectomy CLIP,HEMOLOCK LG WECK FDA Start: 04-18-2019 Robot-assisted simple nephrectomy SEALANT,FLOSEAL HEMOSTATIC 5ML FDA Start: 04-18-2019 Robot-assisted simple nephrectomy CLIP,HEMOLOCK LG WECK FDA Start: 04-18-2019 Robot-assisted simple nephrectomy SEALANT,FLOSEAL HEMOSTATIC 5ML FDA Start: 04-18-2019 Robot-assisted simple nephrectomy CLIP,HEMOLOCK LG WECK FDA Start: 04-18-2019 Robot-assisted simple nephrectomy CLIP,HEMOLOCK LG WECK FDA Start: 04-18-2019 Robot-assisted simple nephrectomy CLIP,HEMOLOCK LG WECK FDA Start: 04-18-2019 Robot-assisted simple nephrectomy CLIP,HEMOLOCK LG MIRLANDECK FDA Start: 04-18-2019 Robot-assisted simple nephrectomy CLIP,HEMOLOCK LG WECK FDA Start: 04-18-2019 Robot-assisted simple nephrectomy CLIP,HEMOLOCK LG MIRLANDECK FDA Start: 04-18-2019 Robot-assisted simple nephrectomy CLIP,HEMOLOCK LG MIRLANDECK FDA Start: 04-18-2019 Robot-assisted simple nephrectomy SEALANT,FLOSEAL HEMOSTATIC 5ML FDA Start: 04-18-2019 Robot-assisted simple nephrectomy CLIP,HEMOLOCK LG MIRLANDECK FDA Start: 04-18-2019 Robot-assisted simple nephrectomy SEALANT,FLOSEAL HEMOSTATIC 5ML FDA Start: 04-18-2019 Robot-assisted simple nephrectomy CLIP,HEMOLOCK LG MIRLANDECK FDA Start: 04-18-2019 Robot-assisted simple nephrectomy CLIP,HEMOLOCK LG MIRLANDECK FDA Start: 04-18-2019 Robot-assisted simple nephrectomy CLIP,HEMOLOCK LG MIRLANDECK FDA Start: 04-18-2019 Robot-assisted simple nephrectomy CLIP,HEMOLOCK LG MIRLANDECK FDA Start: 04-18-2019 Robot-assisted simple nephrectomy CLIP,HEMOLOCK LG MIRLANDECK FDA Start: 04-18-2019 Robot-assisted simple nephrectomy CLIP,HEMOLOCK LG MIRLANDECK FDA Start: 04-18-2019 Robot-assisted simple nephrectomy CLIP,HEMOLOCK LG MIRLANDECK FDA Start: 04-18-2019 Robot-assisted simple nephrectomy SEALANT,FLOSEAL HEMOSTATIC 5ML FDA Start: 04-18-2019 Robot-assisted simple nephrectomy CLIP,HEMOLOCK LG MIRLANDECK FDA Start: 04-18-2019 Robot-assisted simple nephrectomy SEALANT,FLOSEAL HEMOSTATIC 5ML FDA Start: 04-18-2019 Robot-assisted simple nephrectomy CLIP,HEMOLOCK LG WECK FDA Start: 04-18-2019 Robot-assisted simple nephrectomy CLIP,HEMOLOCK LG WECK FDA Start: 04-18-2019 Robot-assisted simple nephrectomy CLIP,HEMOLOCK LG WECK FDA Start: 04-18-2019 Robot-assisted simple nephrectomy CLIP,HEMOLOCK LG WECK FDA Start: 04-18-2019 Robot-assisted simple nephrectomy CLIP,HEMOLOCK LG WECK FDA Start: 04-18-2019 Robot-assisted simple nephrectomy CLIP,HEMOLOCK LG WECK FDA Start: 04-18-2019 Robot-assisted simple nephrectomy CLIP,HEMOLOCK LG WECK FDA Start: 04-18-2019 Robot-assisted simple nephrectomy SEALANT,FLOSEAL HEMOSTATIC 5ML FDA Start: 04-18-2019 SEALANT,FLOSEAL HEMOSTATIC 5ML FDA Start: 02-21-2019 SEALANT,FLOSEAL HEMOSTATIC 5ML FDA Start: 02-21-2019 SEALANT,FLOSEAL HEMOSTATIC 5ML FDA Start: 02-21-2019 SEALANT,FLOSEAL HEMOSTATIC 5ML FDA Start: 02-21-2019 SEALANT,FLOSEAL HEMOSTATIC 5ML FDA Start: 02-21-2019 SEALANT,FLOSEAL HEMOSTATIC 5ML FDA Start: 02-21-2019 SEALANT,FLOSEAL HEMOSTATIC 5ML FDA Start: 02-21-2019 SEALANT,FLOSEAL HEMOSTATIC 5ML FDA Start: 02-21-2019 SEALANT,FLOSEAL HEMOSTATIC 5ML FDA Start: 02-21-2019 SEALANT,FLOSEAL HEMOSTATIC 5ML FDA Start: 02-21-2019 Goals Date Patient Goal Desired Activity /State Functional Status Date Assessment Result Facility 04-10-2022 Functional Status Less than 8 hours [facility] Mental Status Date Assessment Result Facility 02-22-2024 Cognitive function Voice/Name [facility] Work Phone: 04-10-2022 Mental Status Oriented x [address] [facility] 04-10-2022 Mental Status [facility] Discharge summary 02-22-2024 Note Date & Type Note Facility 02-22-2024 Discharge summary Note Date/Time February 22, 2024 11:39 am [facility] Medical Records Department [address] [place] [address] Instructions for Home/Discharge Instructions 02/22/24 1139 MR#: [id number] Acct: [id number] Name: YUKI HERNANDEZ Rep #:[id number] : 1940 83 From: Richard Fields MD PCP: Dr. Indira Tidwell MD Status:[facility] Discharge Instructions Diet Discharge Diet: No restrictions Activity Discharge Activity: Return to Normal Activity and May Not Drive (while taking narcotic pain medications.) Dressing / Incision Call your doctor if you observe: Fever of 101 or Higher Follow Up Care Please Follow Up With: Richard Fields MD When: Call [phone] for an appointment Test Results: Test results from this visit will be discussed in further detail at your follow-up appointment, if applicable. Discharge Plan Admission Primary Reason for Your Visit: bladder tumor Attending Provider: Richard Fields Primary Care Provider: Indira Tidwell Discharge Orders/Prescriptions Prescriptions: New ciprofloxacin HCl [Cipro] 500 mg tablet 500 mg PO BID Qty: 10 0RF Continued lisinopril 20 MG tablet 20 mg PO DAILY amlodipine 5 MG tablet 10 mg PO QHS glimepiride 2 MG tablet 2 mg PO DAILY metformin 1,000 MG tablet 1,000 mg PO QHS chlorthalidone 25 mg tablet 25 mg PO DAILY tamsulosin 0.4 mg capsule 0.4 mg PO BID Referrals / Follow Up: Indira Tidwell MD [Primary Care Provider] - Richard Fields MD [Med Staff - Active Staff] - Disposition Disposition (needs filled in before D/C Order can be placed): Home, Self Care 02/22/24 1139<Electronically signed by Richard Fields MD>Richard Fields MD CC: Dr. Indira Tidwell MD ~ Signed [facility] Work Phone: History and physical note 02-22-2024 Note Date & Type Note Facility 02-22-2024 History and physi kaylin note Note Date/Time February 22, 2024 11:39am [facility] Medical Records Department [address] [place] [address] History & Physical Exam 02/22/24 1138 MR#: [id number] Acct: [id number] Name: YUKI HERNANDEZ Rep #:[id number] : 1940 83 From: Richard Fields MD PCP: Dr. Indira Tidwell MD Status:[facility] Location: [place] [address] HPI - General General Date of Service: 02/22/24 Chief Complaint: Large bladder tumor HPI Narrative YUKI HERNANDEZ, is a 83 M who presents resection of a large bladder tumor and in theright anterior lateral wall [facility] Medical History (Updated 02/12/24 @ 09:18 by Magalie Lopez) Alcohol use Arthritis Back pain Bladder disease Cancer Diabetes Dietary restriction Former smoker Gout Heartburn History of edema History of pain when walking Hx of basal cell carcinoma Hypertension Leg cramps Neuropathy Syncope Wears glasses Wears hearing aid Home Medications amlodipine 5 mg tablet 10 mg PO QHS BP 05/30/17 [History Last Taken 02/21/24] glimepiride 2 mg tablet 2 mg PO DAILY BLOOD GLUCOSE 05/30/17 [History Last Taken 02/21/24] lisinopril 20 mg tablet 20 mg PO DAILY BP 05/30/17 [History Last Taken 02/22/24] metformin 1,000 mg tablet 1,000 mg PO QHS BLOOD GLUCOSE 05/30/17 [History Last Taken 02/21/24] chlorthalidone 25 mg tablet 25 mg PO DAILY 02/12/24 [History Last Taken 02/21/24] tamsulosin 0.4 mg capsule 0.4 mg PO BID 02/12/24 [History Last Taken 02/22/24] ciprofloxacin HCl 500 mg tablet (Cipro) 500 mg PO BID #10 tabs 02/22/24 [Rx Last Taken Unknown] Allergy/AdvReac Type Severity Reaction Status Date / Time pneumococcal vaccine Allergy SWELLING Verified 02/22/24 09:11 [From Pneumovax 23] AND REDNESS Surgical History (Updated 02/12/24 @ 09:18 by Magalie Lopez) History of carpal tunnel surgery of left wrist History of carpal tunnel surgery of right wrist History of nephrectomy, right Hx of colonoscopy Hx of prostatectomy Hx of tonsillectomy Social History (Updated 11/20/17 @ 15:[address] Lynn Wheat DO) Smoking Status: Former smoker Vital Signs Vital Signs Vital Signs: 02/22/24 09:05 02/22/24 09:05 Temperature 97.0 F L Temperature Source Temporal Pulse Rate 87 Respiratory Rate 12 Respiratory Pattern Normal Blood Pressure 114/66 Blood Pressure Mean 82 Blood Pressure Source Monitor Blood Pressure Position Semi-Fowlers Blood Pressure Location Right Arm Pulse Ox 100 Oxygen Delivery Method Room Air Weight Weight: 94.3 kg Body Mass Index (BMI) 28.2 Results Lab / Micro Data 02/14/24 10:30 02/14/24 10:30 Labs: Laboratory Results - last 24 hr 02/22/24 09:03: POC Glucose 152 H 02/22/24 1138 <Electronically signed by Richard Fields MD> Cosigner Signature (if applicable): CC: Dr. Indira Tidwell MD; Dr. Richard Fields MD~ Signed [facility] Work Phone: Procedure note 02-22-2024 Note Date & Type Note Facility 02-22-2024 Procedure note [facility] Evaluation + Plan note 04-10-2022 Note Date & Type Note Facility 04-10-2022 Evaluation + Plan note Extrac sue from: Title:Clinical Document Author:BENIGNO STARKEY Date:04/10/22 [facility] ADMISSION HISTORY AN D PHYSICIAL CHIEF COMPLAINT: HISTORY OF PRESENT ILLNESS: REVIEW OF SYSTEMS: ACTIVE PROBLEMS: (1) DM2 (diabetes mellitus, type 2) ([id number]) MEDICATIONS: Active Inpt Meds: None Active PRN Meds: None One Time Meds: None Active IV Meds: Lactated Ringers Infusion 1,000 mL (LR 1,000 mL) Start: 04/10/22 7:43:00 EDT, Rate: 50 mL/hr, 04/10/22 7:43:00 EDT ALLERGIES: (1) atorvastatin FAMILY HISTORY: SOCIAL HISTORY: PHYSICAL EXAM: VITALS: [id number](kg) 04/10 07:5536.0130/[id number]/26706.0 24 Hr Tmax: 36.0 at 04/10 07:55 36 Hr Tmax: 36.0 at 04/10 07:55 Vital Signs are the last 5 in the past 48 hours. Weights display the last 5 within 7 days. Initial Wt: 04/10 100.0 kg 220 lb Current Wt: 04/10 100.0 kg 220 lb GENERAL: HEENT: CARDIOVASCULAR: RESPIRATORY: ABDOMEN: EXREMETIES: NEUROLOGICAL: PSYCHIATRIC: LABS: No 36hr Lab Data DIAGNOSTICS: IMPRESSION: PLAN: History and Physical Update I have examined the patient; reviewed the H&P and there are no changes to the H&P unless noted below. [facility] Hospital Discharge instructions 04-10-2022 Note Date & Type Note Facility 04-10-2022 Hospital Discharg e instructions Patient Education 04/10/2022 09:19:45 Colonoscopy, Adult, Care After, Vusv-yo-Sbgw Colonoscopy, Adult, Care After This sheet gives you information about how to care for yourself after your procedure. Your doctor may also give you more specific instructions. If you have problems or questions, call your doctor. What can I expect after the procedure? After the procedure, it is common to have: A small amount of blood in your poop for 24 hours. Some gas. Mild cramping or bloating in your belly. Follow these instructions at home: General instructions For the first 24 hours after the procedure: ?Do not drive or use machinery. ?Do not sign important documents. ?Do not drink alcohol. ?Do your daily activities more slowly than normal. ?Eat foods that are soft and easy to digest. Take kefe-har-ugvrdgl or prescription medicines only as told by your doctor. To help cramping and bloating: Try walking around. Put heat on your belly (abdomen) as told by your doctor. Use a heat source that your doctor recommends, such as a moist heat pack or a heating pad. ?Put a towel between your skin and the heat source. ?Leave the heat on for 20 30 minutes. ?Remove the heat if your skin turns bright red. This is especially important if you cannot feel pain, heat, or cold. You can get burned. Eating and drinking Drink enough fluid to keep your pee (urine) clear or pale yellow. Return to your normal diet as told by your doctor. Avoid heavy or fried foods that are hard to digest. Avoid drinking alcohol for as long as told by your doctor. Contact a doctor if: You have blood in your poop (stool) 2 3 days after the procedure. Get help right away if: You have more than a small amount of blood in your poop. You see large clumps of tissue (blood clots) in your poop. Your belly is swollen. You feel sick to your stomach (nauseous). You throw up (vomit). You have a fever. You have belly pain that gets worse, and medicine does not help your pain. Summary After the procedure, it is common to have a small amount of blood in your poop. You may also have mild cramping and bloating in your belly. For the first 24 hours after the procedure, do not drive or use machinery, do not sign important documents, and do not drink alcohol. Get help right away if you have a lot of blood in your poop, feel sick to your stomach, have a fever, or have more belly pain. This information is not intended to replace advice given to you by your health care provider. Make sure you discuss any questions you have with your health care provider. Document Released: 11/03/2011 Document Revised: 08/01/2018 Document Reviewed: 06/25/2017 [employer] Patient Education 2020 [employer]. 04/10/2022 09:19:37 Monitored Anesthesia Care, Care After Monitored Anesthesia Care, Care After These instructions provide you with information about caring for yourself after your procedure. Your health care provider may also give you more specific instructions. Your treatment has been planned according to current medical practices, but problems sometimes occur. Call your health care provider if you have any problems or questions after your procedure. What can I expect after the procedure? After your procedure, you may: Feel sleepy for several hours. Feel clumsy and have poor balance for several hours. Feel forgetful about what happened after the procedure. Have poor judgment for several hours. Feel nauseous or vomit. Have a sore throat if you had a breathing tube during the procedure. Follow these instructions at home: For at least 24 hours after the procedure: Have a responsible adult stay with you. It is important to have someone help care for you until you are awake and alert. Rest as needed. Do not: ?Participate in activities in which you could fall or become injured. ?Drive. ?Use heavy machinery. ?Drink alcohol. ?Take sleeping pills or medicines that cause drowsiness. ?Make important decisions or sign legal documents. ?Take care of children on your own. Eating and drinking Follow the diet that is recommended by your health care provider. If you vomit, drink water, juice, or soup when you can drink without vomiting. Make sure you have little or no nausea before eating solid foods. General instructions Take rnri-gji-ujodrrm and prescription medicines only as told by your health care provider. If you have sleep apnea, surgery and certain medicines can increase your risk for breathing problems. Follow instructions from your health care provider about wearing your sleep device: ?Anytime you are sleeping, including during daytime naps. ?While taking prescription pain medicines, sleeping medicines, or medicines that make you drowsy. If you smoke, do not smoke without supervision. Keep all follow-up visits as told by your health care provider. This is important. Contact a health care provider if: You keep feeling nauseous or you keep vomiting. You feel light-headed. You develop a rash. You have a fever. Get help right away if: You have trouble breathing. Summary For several hours after your procedure, you may feel sleepy and have poor judgment. Have a responsible adult stay with you for at least 24 hours or until you are awake and alert. This information is not intended to replace advice given to you by your health care provider. Make sure you discuss any questions you have with your health care provider. Document Released: 01/21/2017 Document Revised: 12/30/2018 Document Reviewed: 01/21/2017 [employer] Patient Education 2019 [employer]. Follow Up Care 03/22/2022 08:52:34 With:BENIGNO STARKEY MD Address: [address] [facility] [address] [place] [phone] When: Unknown Comments:YOU HAD A CLEAN COLONOSCOPY TODAY. NOTHING ABNORMAL WAS SEEN. YOU DO NOT HAVE TO HAVE ANY MORE COLONOSCOPIES UNLESS YOU ARE EXPERIENCING SYMPTOMS. [facility] Evaluation note Note Date & Type Note Facility Evaluation note [facility] Narrative Note Date & Type Note Facility Hospital course Narrative No data available for this section [facility] Hospital Discharge instructions Note Date & Type Note Facility Hospital Discharge instructions Additional Instructions Implant Used?: No [facility] Work Phone: Progress note Note Date & Type Note Facility Progress note No data available for this section [facility] Reason for referral (narrative) Note Date & Type Note Facility Reason for referral (narrative) No reason for referral information available [facility] Work Phone: Chief Complaint and Reason for Visit Chief Complaint MALIGNANT NEOPLASM O F PROSTATE Chief Complaint MALIGNANT NEOPLASM O F PROSTATE Malignant neoplasm of prostate Chief Complaint Gross hematuria Chief Complaint Gross hematuria PREOP Cysto,Transurethra Resec BladderTum Chief Complaint Admit Date EORDERS March 03, 2025 9:21a m Advance Directives No Advanced Directives Records Found Advance Directive Response Recorded Date/ Time Living Will No April 18, 2019 1 :47pm Power of [employer] Salesperson No April 18, 2019 1:47pm Advance Directive Response Recorded Date/ Time Living Will No April 18, 2019 1 2:47pm Power of [employer] Salesperson No April 18, 2019 12:47pm Advance Directive Response Recorded Date/ Time Name of Medical Power of [employer] Salesperson February 12, 2024 9:03am Living Will Yes February 12, 2024 9:03am Power of [employer] Salesperson Yes February 11 9:03am Summary Purpose Family History No Family History Records FoundNo Family History Records Found Additional Source Comments Goals (unrecognized section and content) Goals may be documented in a n alternate sectionGoals may be documented in an alternate section No data available for this sectionGoals may be documented in an alternate sectionGoals may be documented in an alternate sectionGoals may be documented in an alternate sectionGoals may be documented in an alternate sectionGoals may be documented in an alternate sectionGoals may be documented in an alternate section Care Team (unrecognized sect ion and content) Personnel Name: INDIRA TIDWELL MD Address: Address: [address] [place] [id number] [place] (unrecognized sect ion and content) No Status Records FoundNo Status Records Found INFORMATION SOURCE (unrecogn ized section and content) DATE CREATED AUTHOR 07/26/2022 [facility] ([place]) DATE CREATED AUTHOR AUTHOR'S ORGANIZ ATION 06/21/2025 [facility] Care Teams (unrecognized sec tion and content) Team Status: Active Member Role Status Dates Dr. Indira Tidwell MD Family Provider Active Dr. Indira Tidwell MD Primary Care Provider Active Team Status: Inactive Member Role Status Dates Dr. Indira Tidwell MD Primary Care Provider Active Dr. Richard Fields MD Attending Provider, Referr ing Provider Active Team Status: Inactive Member Role Status Dates Dr. Indira Tidwell MD Primary Care Provider, Attendin g Provider Active Team Status: Active Member Role Status Dates Dr. Indira Tidwell MD Primary Care Provider Active Dr. Jose De Jesus Mejia MD Attending Provider Active Dr. Richard Fields MD Referring Provider Active Team Status: Inactive Member Role Status Dates Dr. Indira Tidwell MD Primary Care Provider Active Start: March 03, 2025 End: March 03, 2025 Machelle Pedraza VENDING MACHINE FILLER, VENDING MACHINE FILLER-C Attending Provider Active S tart: March 03, 2025 End: March 03, 2025 Machelle Pedraza VENDING MACHINE FILLER, VENDING MACHINE FILLER-C Referring Provider Active S tart: March 03, 2025 End: March 03, 2025 Team Status: Active Member Role/Relationship Status Dates Dr. Indira Tidwell MD Family Provider Active Dr. Yuki Kilgore MD Primary Care Provider Active Team Status: Inactive Member Role/Relationship Status Dates Dr. Indira Tidwell MD Primary Care Provider Active Start: March 03, 2025 End: March 03, 2025 Machelle Pedraza VENDING MACHINE FILLER, VENDING MACHINE FILLER-C Attending Provider Active S tart: March 03, 2025 End: March 03, 2025 Machelle Pedraza VENDING MACHINE FILLER, VENDING MACHINE FILLER-C Referring Provider Active S tart: March 03, 2025 End: March 03, 2025 Team Status: Inactive Member Role/Relationship Status Dates Dr. Yuki Kilgore MD Primary Care Provider Active Start: June 12, 2025 End: June 12, 2025 Dr. Yuki Kilgore MD Attending Provider Active Start: June 12, 2025 End: June 12, 2025 Dr. Yuki Kilgore MD Referring Provider Active Start: June 12, 2025 End: June 12, 2025 FOR RECORDS PERTAINING TO PATIENTS WHO ARE OR HAVE BEEN ENROLLED IN A CHEMICAL DEPENDENCY/SUBSTANCEABUSE PROGRAM, SOME INFORMATION MAY BE OMITTED. This clinical summary was aggregated from multiple sources. Caution should be exercised in using it in the provision of clinical care. This summary normalizes information from multiple sources, and as a consequence, information in this document may materially change the coding, format and clinical context of patient data. In addition, data may be omitted in some cases. CLINICAL DECISIONS SHOULD BE BASED ON THE PRIMARY CLINICAL RECORDS. [facility] [employer] [facility]. provides no warranty or guarantee of the accuracy or completeness of information in this document.
[2025-07-18 18:27] VITALS: BP 125/81; PULSE 77; RESP 16; TEMP 36.2; O2SAT 99
== END 2025-07-18 18:27 | disposition home or self-care (01) ==
LOC: ED 18:13
PROVIDERS: Emergency Provider Emergency Medicine; PCP Family Medicine; Visit Provider Emergency Medicine
DX: T25.292A Burn of second degree of multiple sites of left ankle and foot, initial encounter (principal); E11.40 Type 2 diabetes mellitus with diabetic neuropathy, unspecified; Z87.891 Personal history of nicotine dependence; I10 Essential (primary) hypertension; Z90.5 Acquired absence of kidney; X12.XXXA Contact with other hot fluids, initial encounter
CPT/HCPCS: 99282

== ENCOUNTER → 2025-07-30 | Outpatient (CLI) | payer MEDICARE, SELFPAY ==
[2025-07-30 12:34] LABS: Hematocrit 36.6 % (40-54); Hemoglobin 11.8 g/dL (13.0-16.5); Immature Granulocytes Count 0.150 X10^3/uL (0.0-0.0); Mean Corp Hgb Conc 32.2 g/dL (32-36); Mean Corpuscular Volume 89.3 fL (80-94); Mean Platelet Vol. 11.1 fl (6.2-12.0); NRBC Flagged by Analyzer 0 % (0-5); Platelet Count 162 K/mm3 (150-450); RBC Distribution Width CV 14.0 % (11.6-14.6); RBC Distribution Width SD 45.3 fl (35.1-43.9); Red Blood Count 4.10 M/mm3 (4.6-6.2); White Blood Count 4.8 K/mm3 (4.4-11.0)
[2025-07-30 13:01] LABS: PTHIN 43 pg/mL (11-61)
[2025-07-30 13:02] LABS: Creatinine, Urine (random) 36.30 mg/dL (39.00-259.00); Protein, Urine (Random) < 6.0 mg/dL (0.0-12.0); Protein:Creat Ratio UNABLE TO CALCULATE mg/g CRE (0-200)
[2025-07-30 13:25] LABS: Ferritin 328 ng/mL (37-417); Iron 63 ug/dL (65-175); Iron Binding Capacity,Total 292 ug/dL (250-450); Iron Binding Capacity,Unsat 229 ug/dL (228-428); Vitamin B12 303 pg/mL (180-914); Vitamin D,25 Hydroxy 19.2 ng/mL (30-100)
[2025-07-30 15:14] LABS: FOLATES,SERUM (FOLIC ACID) 11.30 ng/mL (4.60-34.80)
== END | disposition home or self-care (01) ==
LOC: MFPLAB 10:56
PROVIDERS: PCP Family Medicine; Visit Provider Family Medicine
DX: N18.30 Chronic kidney disease, stage 3 unspecified (principal); D64.9 Anemia, unspecified
CPT/HCPCS: 82306; 82570; 82607; 82728; 82746; 83540; 83550; 83970; 84156; 85025